=== PATIENT | male | born 1965 | race Caucasian/White ===

== ENCOUNTER → 2017-01-29 12:30 | Emergency (ER) | payer BC ==
[~2017-01-29 12:30] MED LIST: Acyclovir* 400 MG TAB PO ONE; Iohexol 300* (CONTRAST) 10 ML SDV IV ONE; Ketorolac INJ* 30 MG/ML 1 ML VIAL IV PUSH ONE; NS 0.9% 1000 ML* 1,000 ML IV ONE; Ondansetron INJ* 2 MG/ML VIAL IV ONE; ValACYclovir (*) 1 GM TAB PO ONE
--- NOTE | 2017-01-29 13:39 | ED ---
Abdominal Pain/Male - HPI Summary HPI Summary: Pt here w/ RT groin pain x 2 days - started as soreness but today progressively worse. When he went to look at the area, noticed he has swelling/bulging here. TTP. Also noticed a sore on Rt/top area of his penis when looking a Rt groin - painless and not sure how long it's been there. Rt groin pain is worse w/ sitting as this squeezes the area - better w/ lying down,standing up to allow area to extend. Nausea - no vomiting. 2 BM's this morning but smaller than usual - one was hard, one was soft - no change in sx. Denies hematochezia, dark/ tarry stools, diarrhea. Denies fever, chills but has had some mild URI past few days as well - ST, nasal congestion, mild cough. No SOB, chest pain, nightsweats , fatigue. H/o mono and this doesn't feel same. Urination is never complete and often frequent. Denies dysuria, flank pain, hematuria, testicular pain/swelling, perineal fullness, ab pain. Pt reports h/o BPH - advised to take flomax but he doesn't. Was seen by Braydon years ago. States he had a scope which confirmed enlarged prostate - no bx. Denies sexual activity. - History of Current Complaint Chief Complaint: EDUrogenitalProblems Stated Complaint: RT GROIN PAIN/SORE ON PENIS Time Seen by Provider: 01/29/17 13:14 Hx Obtained From: Patient, Family/Molecular Biology Director - female partner Pain Intensity: 2 - Allergies/Home Medications Allergies/Adverse Reactions: Allergies Allergy/AdvReac Type Severity Reaction Status Date / Time Lisinopril Allergy See Comment Verified 01/29/17 12:41 PMH/Surg Hx/FS Hx/Imm Hx Previously Healthy: Yes Endocrine/Hematology History: Denies: Hx Diabetes Cardiovascular History: Denies: Hx Hypertension, Hx Pacemaker/ICD Respiratory History: Reports: Hx Sleep Apnea - MILD GI History: Reports: Hx Gall Bladder Disease - cholecystectomy, Hx Gastroesophageal Reflux Disease - CONTROLLED WITH MEDICATION, Hx Hiatal Hernia Denies: Hx Cirrhosis, Hx Crohn's Disease, Hx Diverticulosis, Hx Gastrointestinal Bleed, Hx Irritable Bowel, Hx Obstructive Bowel, Hx Ulcer History: Reports: Hx Benign Prostatic Hyperplasia - rx'd flomax - doesn't use Denies: Hx Dialysis, Hx Kidney Infection, Hx Kidney Stones, Hx Renal Disease Sensory History: Reports: Hx Contacts or Glasses - WEARS CONTACTS-INSTRUCTED TO REMOVE PRIOR TO SURGERY Denies: Hx Hearing Aid Opthamlomology History: Reports: Hx Contacts or Glasses - WEARS CONTACTS- INSTRUCTED TO REMOVE PRIOR TO SURGERY Psychiatric History: Denies: Hx Panic Disorder - Surgical History Surgery Procedure, Year, and Place: GALLBLADDER 12/31/12; RIGHT KNEE SCOPE Hx Anesthesia Reactions: No Infectious Disease History: No Infectious Disease History: Denies: History Other Infectious Disease, Traveled Outside the [place] in Last 30 Days - Family History Known Family History: Positive: Other - father - lung [place] (smoker, director workers compensation ) - Social History Occupation: Retired Lives: With Family - female partner Alcohol Use: None Hx Substance Use: No Substance Use Type: Reports: None Hx Tobacco Use: No Smoking Status (MU): Never Smoked Tobacco Review of Systems Constitutional: Negative ENT: Other - see HPI Cardiovascular: Negative Respiratory: Negative Gastrointestinal: Other - see HPI Positive: see HPI Skin: Other - see HPI Neurological: Negative Psychological: Normal All Other Systems Reviewed And Are Negative: Yes Physical Exam Triage Information Reviewed: Yes Vital Signs On Initial Exam: Initial Vitals Temp Pulse Resp BP Pulse Ox 98.8 F 83 16 143/92 97 01/29/17 12:41 01/29/17 12:41 01/29/17 12:41 01/29/17 12:41 01/29/17 12:41 Vital Signs Reviewed: Yes Appearance: Positive: Well-Appearing, No Pain Distress - at sitting/stanind - appears to be uncomfortable w/ flexion at hips, Obese Skin: Positive: Warm, Dry - 2mm wet annual sore on Rt dorsal penis - serous drainage w/ crusting - NTTP, no edema but there is surrounding erythema Head/Face: Positive: Normal Head/Face Inspection Eyes: Positive: Normal, EOMI ENT: Positive: Normal ENT inspection, Hearing grossly normal, Pharynx normal, TMs normal. Negative: Nasal congestion, Nasal drainage, Tonsillar swelling, Tonsillar exudate Neck: Positive: Supple, Nontender, No Lymphadenopathy - cervical; no discrete palpable LN's in groin Respiratory/Lung Sounds: Positive: Clear to Auscultation, Breath Sounds Present. Negative: Rales, Rhonchi, Wheezes Cardiovascular: Positive: Normal, RRR, S1, S2 Abdomen Description: Positive: No Organomegaly, Soft, Hernia @ - Rt inguinal region w/ firm swelling - TTP - no reducing (diff dx: matted LN's). Negative: CVA Tenderness (R), CVA Tenderness (L), Distended, Guarding Bowel Sounds: Positive: Hypoactive Male Genital Exam: Positive: other - sore as mentioned above. Negative: bleeding, epididymal tenderness, scrotum tenderness (R), scrotum tenderness (L) , testicular tenderness (R), testicular tenderness (L), urethral discharge Musculoskeletal: Positive: Normal, Strength/ROM Intact Neurological: Positive: Normal, Sensory/Motor Intact, Alert, Oriented to Person Place, Time, CN Intact II-III Psychiatric: Positive: Normal Diagnostics - Vital Signs Vital Signs Temp Pulse Resp BP Pulse Ox 01/29/17 12:41 98.8 F 83 16 143/92 97 - Laboratory Result Diagrams: 01/29/17 13:44 01/29/17 13:44 Lab Statement: Any lab studies that have been ordered have been reviewed, and results considered in the medical decision making process. Abdominal Pain Fem Course/Dx - Course Course Of Treatment: Pt presents w/ Rt inguinal region swelling and pain w/ associated nausea and decreased BM's today. Also reports painless penile lesion he noticed yesterday. Denies fever, chills, dysuria, testicular pain/swelling, rectal pain. H/o BPH and has not been taking flomax (urinary sx same). Reports no sexual activity in 15 years and no h/o STD's. Assessment was started for hernia vs. lymphadenopathy, possibly from syphills as penile lesion is painless and appears to be ulcerated and wet. CT reveals enlarged LN here and mild infiltration of tissue in Rt inguinal region - no hernia. After further discussion w/ pt, he reveals his Rt inguinal region feels like it's burning, "even the hair is sensitive" and so penile lesion was investigated again -it is now tender w/ cleaning and vesicles are observed. Discussed w/ pt this could be HZV w/ his h/o chix pox or HSV. Swab collected and anti-viral therapy started as well as pain meds. Pt to watch for worsening of sx and return to ED if danger s/sx present. If not, follow-up with PCP early next week. Pt and agree w/ plan. - Diagnoses Provider Diagnoses: Herpes genitalia, Shingles rash Discharge - Discharge Plan Condition: Stable Disposition: HOME Prescriptions: Gabapentin CAP(*) [Neurontin 300 CAP(*)] 300 mg PO TID PRN #42 cap PRN Reason: Pain ValACYclovir (*) [Valtrex 1 GM(*)] 1 gm PO TID #20 tab Referrals: Tova Cuellar MD [Primary Care Provider] - Additional Instructions: You appear to have a herpetic lesion on your penis. This may be from Shingles ( aka. Herpes Zoster Virus) or Herpes Simplex (aka genital herpes). A swab was collected today to verify your diagnosis - call PCP Tuesday to schedule a follow- up for results. In the meantime, complete the [id number] medication provided for your today. You may also take ibuprofen and gabapentin for pain. *If you develop fever, chills, vomiting, weakness, intractable pain, return to ED
[2017-01-29 13:51] LABS: Hematocrit 40 % (42-52); Hemoglobin 13.9 g/dl (14.0-18.0); Mean Corpuscular HGB Conc 34 g/dl (31-36); Mean Corpuscular Hemoglobin 30 pg (27-31); Mean Corpuscular Volume 87 fL (80-94); Mean Platelet Volume 8 um3 (7.4-10.4); Red Blood Count 4.65 10^6/ul (4.0-5.4); Red Cell Distribution Width 13 % (10.5-15); White Blood Count 6.3 10^3/ul (3.5-10.8)
[2017-01-29 14:06] LABS: Albumin 4.4 g/dL (3.2-5.2); BUN/Creatinine Ratio 13.1 (8-20); C Reactive Protein 11.58 mg/L (< 5.00); Calcium 9.3 mg/dL (8.6-10.3); EGFR African American 123.4 (>60); Globulin 2.9 g/dL (2-4); Potassium 3.9 mmol/L (3.5-5.0); Total Bilirubin 0.5 mg/dL (0.2-1.0); Total Protein 7.3 g/dL (6.4-8.9)
[2017-01-29 14:53] LABS: Urine Bilirubin Negative (Negative); Urine Glucose Negative (Negative); Urine Nitrite Negative (Negative)
--- NOTE | 2017-01-29 16:18 | RAD ---
CLINICAL HISTORY: Right inguinal pain and swelling COMPARISON: CT abdomen pelvis dated October 24, 2008 TECHNIQUE: Contrast enhanced CT examination of the abdomen and pelvis from the lung bases through the initial tuberosities. The patient received 150 mL Omnipaque 300 intravenously prior to imaging.The patient received oral contrast as well prior to imaging. FINDINGS: VISUALIZED LUNG BASES: The visualized lung bases are grossly clear. There is no pleural effusion. ABDOMEN AND PELVIS: The liver is homogenously hypodense relative to the spleen. The liver measures 21.8 cm in greatest cephalocaudal dimension slightly increased from 20 cm on the previous CT exam. The spleen, pancreas and adrenal glands are grossly normal in appearance. The gallbladder is surgically absent. The kidneys are normal in appearance without focal mass, calcification or signs of hydronephrosis. There are contrast has progressed as far as the rectum. The small and large bowel are not distended. The patient's normal appendix is identified in the right lower quadrant with contrast and gas in the lumen (axial image 57). There is questionable wall thickening and haustral thickening throughout the length of the transverse colon and again at the rectosigmoid colon. There is no gross retroperitoneal or mesenteric lymphadenopathy. The pelvic viscera is normal in appearance. The abdominal aorta and iliac arteries are normal in course and diameter. The subcutaneous fat overlying the right inguinal region and extending laterally exhibits mild infiltration. There is mild lymphadenopathy in the right inguinal region with a lymph node measuring just under 1.1 cm in short axis diameter. There is no drainable fluid collection or any visible etiology for this appearance. There are small bilateral fat-containing inguinal hernias slightly larger on the left than the right Degenerative changes include multilevel loss of intervertebral disc height involving the lower thoracic and lumbar spine.There are no sinister bone lesions. IMPRESSION: 1. Overlying the right groin there is mild subcutaneous fat infiltration extending laterally. There is no drainable fluid collection. Lymph nodes in the vicinity are top normal. 2. Although there are small fat-containing inguinal hernias that do not appear to be in direct communication to the groin induration nor is there any herniation of bowel. 3. Questionable wall thickening and haustral thickening involving the transverse colon and again later at the rectosigmoid colon. Please correlate to symptoms of colitis. This may simply be a consequence of incomplete distention. 4. Mild hepatomegaly with a homogenously hypoattenuating liver which could be seen in the setting of hepatic steatosis or other chronic infiltrative disease of the liver.
[2017-01-29 18:26] VITALS: BP 135/82
[2017-01-31 10:52] LABS: Syphilis Index < 0.1 Index
[2017-02-02 00:39] LABS: HS/VZ Source PENILE SHAFT; Varicella Zoster Result Negative (Negative); Varicella Zoster Source PENILE SHAFT
== END | disposition home or self-care (01) ==
LOC: ED 12:30
DX: A60.00 Herpesviral infection of urogenital system, unspecified (principal); B02.9 Zoster without complications; K21.9 Gastro-esophageal reflux disease without esophagitis; G47.30 Sleep apnea, unspecified
CPT/HCPCS: 36415; 74177; 80053; 81003; 82150; 83605; 83690; 85025; 86140; 86592; 87252; 87529; 87798; 96360; 96374; 96375; 99281; A9270-GY; J1885; J2405; Q9967

== ENCOUNTER 2017-04-23 10:21 | Emergency (ER) | payer BC ==
--- NOTE | 2017-04-23 10:22 | UC ---
Knee Pain HPI - HPI Summary HPI Summary: Trauma to LT lateral knee 5 days ago - History of Current Complaint Chief Complaint: UCLowerExtremity Stated Complaint: KNEE PAIN Time Seen by Provider: 04/23/17 10:21 Hx Obtained From: Patient Onset/Duration: Sudden Onset - 5 days ago Severity Initially: Moderate Severity Currently: Mild Location Of Injury: Left lateral knee Pain Intensity: 4 Pain Scale Used: 0-10 Numeric Character: Dull, Throbbing, Stiffness Aggravating Factor(s): Movement Alleviating Factor(s): Rest, Position Associated Signs And Symptoms: Positive: Swelling, Bruising Able to Bear Weight: Yes - with pain - Risk Factors Septic Arthritis Risk Factor: Negative - Allergies/Home Medications Allergies/Adverse Reactions: Allergies Allergy/AdvReac Type Severity Reaction Status Date / Time Lisinopril AdvReac See Comment Verified 04/23/17 10:32 Home Medications: Home Medications Glaucoma Eye Drops 04/23/17 [History] metFORMIN* [Glucophage 500 MG TAB *] 500 mg PO BID 04/23/17 [History Confirmed 04/23/17] PMH/Surg Hx/FS Hx/Imm Hx Previously Healthy: Yes Endocrine History: Diabetes Cardiovascular History: Other - Hyperlipidemia Other Cardiovascular History: Hyperlipidemia - Surgical History Surgical History: Yes Surgery Procedure, Year, and Place: GALLBLADDER 12/31/12; RIGHT KNEE SCOPE - Family History Known Family History: Positive: Other - father - lung [place] (smoker, section gang worker ) - Social History Lives: With Family Alcohol Use: None Substance Use Type: None Smoking Status (MU): Never Smoked Tobacco Review of Systems Constitutional: Negative Skin: Bruising - Left lateral knee Respiratory: Negative Cardiovascular: Negative Motor: Negative Musculoskeletal: Decreased ROM - Left lateral knee, Edema - Left lateral knee Neurological: Negative Psychological: Negative All Other Systems Reviewed And Are Negative: Yes Physical Exam Triage Information Reviewed: Yes Appearance: Well-Appearing, Well-Nourished Vital Signs Reviewed: Yes Respiratory Exam: Normal Respiratory: Positive: Chest non-tender, Lungs clear, Normal breath sounds Cardiovascular Exam: Normal Cardiovascular: Positive: RRR, No Murmur Musculoskeletal Exam: Other Musculoskeletal: Positive: ROM Limited @ - Left knee. Flexion to 80 deg causes pain, Edema @ - Left lateral knee approx 3-4cm swollen hematoma. Neurological Exam: Normal Neurological: Positive: Alert Psychological Exam: Normal Psychological: Positive: Age Appropriate Behavior Knee Pain Course/Dx - Course Course Of Treatment: Traumatic injury to left lateral knee. Pt is ambulating with mild pain and states that the pain and swelling have decreased significantly since his injury. Has been RICE and taking ibuprofen. Utilizing Wells' criteria and correlating with hx, he is at low risk for DVT. X ray was reviewed and shows small joint effusion and lateral hematoma. Pt does not require or request anything for pain control. Was advised to continue with RICE therapy and ambulate as tolerated. - Differential Dx/Diagnosis Differential Diagnosis/HQI/PQRI: Other - Hematoma left lateral knee - traumatic Provider Diagnoses: Hematoma left lateral knee - traumatic Discharge - Discharge Plan Condition: Stable Disposition: HOME Patient Education Materials: Hematoma (ED) Referrals: Tova Cuellar MD [Primary Care Provider] - Additional Instructions: If swelling, redness, or bruising increase or you develop SOB, chest pain, or fever; go to the ED or call our office.
[2017-04-23 10:37] VITALS: BP 138/89
--- NOTE | 2017-04-23 11:16 | RAD ---
INDICATION: Hematoma overlying the left lateral knee after a piece of a coronary event fell on the knee. COMPARISON: None TECHNIQUE: 2 view radiograph of the left knee. FINDINGS: Depicted on the AP view of the knee, there is a hyperdense focus between the musculotendinous structures and subcutaneous fat measuring 1.6 x 3.3 cm. On the lateral view of the knee there is a small joint effusion. The bones are otherwise intact and appropriately aligned. IMPRESSION: 1. Corresponding to the history provided, there is a subcutaneous fluid collection overlying the lateral collateral ligaments which could represent a subcutaneous hematoma or bursitis. 2. Small left knee joint effusion without focal bony abnormality.
== END 2017-04-23 11:55 | disposition home or self-care (01) ==
LOC: UCEAST 10:21
DX: S80.02XA Contusion of left knee, initial encounter (principal); E11.9 Type 2 diabetes mellitus without complications; E78.5 Hyperlipidemia, unspecified; X58.XXXA Exposure to other specified factors, initial encounter; Y92.9 Unspecified place or not applicable
CPT/HCPCS: 99211; G0463

== ENCOUNTER 2018-03-09 09:29 | Emergency (ER) | payer BC ==
[2018-03-09 09:48] VITALS: BP 115/78
--- NOTE | 2018-03-09 09:52 | UC ---
Eye Complaint HPI - HPI Summary HPI Summary: 53 yo male presents with right eye redness and drainage for the last 2 days. He tells me that he has bad seasonal allergies, but has been using OTC eye drops with no relief. He was mowing his lawn 3-4 days ago, but he was wearing protector glasses - does not think anything went into his eye. He does not wear glasses or contacts. Denies fever, chills, sinus symptoms, or pain in the eye. - History of Current Complaint Chief Complaint: UCEye Stated Complaint: R EYE COMPLAINT Time Seen by Provider: 03/09/18 09:51 Hx Obtained From: Patient Onset/Duration: Gradual Onset Timing: Constant Severity Initially: Mild Severity Currently: Mild Pain Intensity: 2 Pain Scale Used: 0-10 Numeric - Allergies/Home Medications Allergies/Adverse Reactions: Allergies Allergy/AdvReac Type Severity Reaction Status Date / Time lisinopril Allergy Rash Verified 03/09/18 09:49 PMH/Surg Hx/FS Hx/Imm Hx Endocrine History: Diabetes, Dyslipidemia Cardiovascular History: Hypertension - Surgical History Surgical History: Yes Surgery Procedure, Year, and Place: GALLBLADDER 12/31/12; RIGHT KNEE SCOPE sinus - Family History Known Family History: Positive: Diabetes, Other - father - lung [place] (smoker, paint factory worker) - Social History Occupation: Employed Full-time Lives: With Family Alcohol Use: None Substance Use Type: None Smoking Status (MU): Never Smoked Tobacco Review of Systems Constitutional: Negative Skin: Negative Eyes: Drainage, Eye Redness ENT: Negative Respiratory: Negative Cardiovascular: Negative Neurovascular: Negative Neurological: Negative Psychological: Negative All Other Systems Reviewed And Are Negative: Yes Physical Exam - Summary Physical Exam Summary: GENERAL: WDWN. No pain distress. SKIN: No rashes, sores, lesions, or open wounds. HEENT: Head: AT/NC Eyes: EOM intact. PERRLA. RIGHT EYE: Moderate scleral injection. Conjunctiva with mild erythema and inflammation. Mild yellow discharge. LEFT EYE : Conjunctiva clear without inflammation or discharge. No FBs appreciated Nose: NTTP maxillary and frontal sinus. NECK: Supple. Nontender. No lymphadenopathy. CHEST: No accessory muscle use. Breathing comfortably and in no distress. CV: Pulses intact. Cap refill <2seconds NEURO: Alert. CN II-XII grossly intact. PSYCH: Age appropriate behavior. Triage Information Reviewed: Yes Vital Signs: Initial Vital Signs Temp 98 F 03/09/18 09:46 Pulse 63 03/09/18 09:46 Resp 16 03/09/18 09:46 BP 115/78 03/09/18 09:46 Pulse Ox 99 03/09/18 09:46 Vital Signs Reviewed: Yes Eye Complaint Course/Dx - Course Course Of Treatment: Right eye conjunctivitis - Differential Dx/Diagnosis Provider Diagnoses: Right eye conjunctivitis Discharge - Sign-Out/Discharge Documenting (check all that apply): Patient Departure All imaging exams completed and their final reports reviewed: Yes - Discharge Plan Condition: Stable Disposition: HOME Prescriptions: Ofloxacin 0.3%(Ophth)(Nf) [Ocuflox OPTH 0.3%(NF)] 1 drop BOTH EYES QID #1 btl Patient Education Materials: Conjunctivitis (ED) Referrals: Tova Cuellar MD [Primary Care Provider] - Additional Instructions: If you develop a fever, shortness of breath, chest pain, new or worsening symptoms - please call your PCP or go to the ED. - Billing Disposition and Condition Condition: STABLE Disposition: Home
== END 2018-03-09 10:05 | disposition home or self-care (01) ==
LOC: UCEAST 09:29
DX: H10.31 Unspecified acute conjunctivitis, right eye (principal); Z88.8 Allergy status to other drugs, medicaments and biological substances
CPT/HCPCS: 99212; G0463

== ENCOUNTER 2018-05-11 10:27 | Observation (INO) | payer BC ==
--- NOTE | 2018-05-11 10:58 | ED ---
HPI Chest Pain - HPI Summary HPI Summary: This patient is a 53 year old M presenting to [facility] accompanied by his family with a chief complaint of intermittent chest pressure that began this morning. The patient rates the pain 2/10 in severity and describes it as mid sternal. Patient reports headache, lightheadedness, dizziness, and diarrhea. He also c/o feeling like he cant take a full breath. Patient denies n/v. No hx of IA but has DM, HLD, and HTN. Pt states he was 150/90 [employer]. He has not taken ASA or NTG. He has not had a stress test since 2011. Pt was on propanol and it was cut back and it was recently discontinued States he has had trouble sleeping due to palpitations since this medication change Not on blood thinners and takes 81 mg ASA daily. - History of Current Complaint Chief Complaint: EDChestPainROMI Time Seen by Provider: 05/11/18 10:42 Hx Obtained From: Patient Onset/Duration: Started Days Ago, Still Present Timing: Intermittent Initial Severity: Mild Current Severity: Mild Pain Intensity: 2 Pain Scale Used: 0-10 Numeric Chest Pain Location: Mid Sternal Chest Pain Radiates: No Character: Pressure/Squeezing Associated Signs and Symptoms: Positive: Other: - headache, lightheadedness, dizziness, and diarrhea - Allergy/Home Medications Allergies/Adverse Reactions: Allergies Allergy/AdvReac Type Severity Reaction Status Date / Time lisinopril Allergy Rash Verified 03/09/18 09:49 Home Medications: Home Medications Aspirin EC TAB* [Ecotrin EC Low Dose 81 MG*] 81 mg PO DAILY 05/11/18 [History Confirmed 05/11/18] Ciclopirox Olamine [Ciclodan] 0.77 % TOPICAL BID 05/11/18 [History Confirmed 02/18] Gabapentin CAP(*) [Neurontin 100 mg CAP(*)] 100 - 200 mg PO TID 05/11/18 [ History Confirmed 05/11/18] Latanoprost 0.005%* [Xalatan 0.005%*] 1 drop OPHTHALMIC DAILY 05/11/18 [History Confirmed 05/11/18] Losartan TAB* [Cozaar TAB*] 50 mg PO DAILY 05/11/18 [History Confirmed 05/11/18] Multivitamins/Minerals TAB* [Theragran/minerals TAB*] 1 tab PO DAILY 05/11/18 [ History Confirmed 05/11/18] Rosuvastatin (NF) [Crestor (NF)] 10 mg PO DAILY 05/11/18 [History Confirmed 02/18] Zolpidem TAB* [Ambien TAB*] 5 - 10 mg PO BEDTIME PRN MDD 10 mg 05/11/18 [ History Confirmed 05/11/18] metFORMIN* [Glucophage 500 MG TAB *] 1,000 mg PO DAILY 05/11/18 [History Confirmed 05/11/18] PMH/Surg Hx/FS Hx/Imm Hx Endocrine/Hematology History: Reports: Hx Diabetes - diet controlled Cardiovascular History: Denies: Hx Hypertension, Hx Pacemaker/ICD Respiratory History: Reports: Hx Sleep Apnea - MILD GI History: Reports: Hx Gall Bladder Disease - cholecystectomy, Hx Gastroesophageal Reflux Disease - CONTROLLED WITH MEDICATION, Hx Hiatal Hernia Denies: Hx Cirrhosis, Hx Crohn's Disease, Hx Diverticulosis, Hx Gastrointestinal Bleed, Hx Irritable Bowel, Hx Obstructive Bowel, Hx Ulcer History: Reports: Hx Benign Prostatic Hyperplasia - rx'd flomax - doesn't use Denies: Hx Dialysis, Hx Kidney Infection, Hx Kidney Stones, Hx Renal Disease Sensory History: Reports: Hx Contacts or Glasses - WEARS CONTACTS-INSTRUCTED TO REMOVE PRIOR TO SURGERY Denies: Hx Hearing Aid Opthamlomology History: Reports: Hx Contacts or Glasses - WEARS CONTACTS- INSTRUCTED TO REMOVE PRIOR TO SURGERY Psychiatric History: Denies: Hx Panic Disorder - Surgical History Surgery Procedure, Year, and Place: GALLBLADDER 12/31/12; RIGHT KNEE SCOPE sinus Hx Anesthesia Reactions: No Infectious Disease History: No Infectious Disease History: Denies: History Other Infectious Disease, Traveled Outside the [place] in Last 30 Days - Family History Known Family History: Positive: Diabetes, Other - father - lung CA (smoker, nozzle worker) - Social History Alcohol Use: None Hx Substance Use: No Substance Use Type: Reports: None Hx Tobacco Use: No Smoking Status (MU): Never Smoked Tobacco Review of Systems Positive: Palpitations - see HPI , Chest Pain Positive: Other - feeling like he can take a full breath Positive: Diarrhea. Negative: Vomiting, Nausea Neurological: Other - lightheadedness, dizziness Positive: Headache All Other Systems Reviewed And Are Negative: Yes Physical Exam - Summary Physical Exam Summary: GENERAL: Patient is a well-developed and nourished M who is lying comfortable in the stretcher. Patient is not in any acute respiratory distress. HEAD AND FACE: Normocephalic EYES: PERRLA, EOMI x 2. EARS: Hearing grossly intact. MOUTH: Oropharynx within normal limits. NECK: Supple, trachea is midline, no adenopathy, no JVD, no carotid bruit. CHEST: Symmetric, no tenderness at palpation LUNGS: Clear to auscultation bilaterally. No wheezing or crackles. CVS: Regular rate and rhythm, S1 and S2 present, no murmurs or gallops appreciated. ABDOMEN: Soft, non-tender. Bowel sounds are normal. No abdominal abnormal pulsations. EXTREMITIES: Full ROM in all major joints, no edema, no cyanosis or clubbing. NEURO: Alert and oriented x 3. No acute neurological deficits. Speech is normal and follows commands. SKIN: Dry and warm Triage Information Reviewed: Yes Vital Signs On Initial Exam: Initial Vitals Temp Pulse Resp BP Pulse Ox 98.3 F 99 18 159/86 98 05/11/18 10:30 05/11/18 10:30 05/11/18 10:30 05/11/18 10:30 05/11/18 10:30 Vital Signs Reviewed: Yes Diagnostics - Vital Signs Vital Signs Temp Pulse Resp BP Pulse Ox 05/11/18 10:30 98.3 F 99 18 159/86 98 - Laboratory Result Diagrams: 05/11/18 10:47 05/11/18 10:47 Lab Statement: Any lab studies that have been ordered have been reviewed, and results considered in the medical decision making process. - Radiology CXR Radiology Interpretation Completed By: Radiologist Summary of Radiographic Findings: NO EVIDENCE FOR ACUTE DISEASE. ED physician has reviewed this radiology report. - EKG 1038 Cardiac Rate: NL EKG Rhythm: Sinus Rhythm - at 53 bpm Summary of EKG Findings: no ischemic changes, Chest Pain Course/Dx - Course Assessment/Plan: This patient is a 53 year old M presenting to [facility] with a chief complaint of intermittent chest pressure that began this morning. An EKG reveals NSR at 53 BPM, no ischemic changes, 1038. CXR reveals, per radiologist , NO EVIDENCE FOR ACUTE DISEASE. Work up was remarkable for of lactic acid of 2.2. First troponin was negative. D dimer was WNL. Given his high risk for ACS he will be admitted fpr r/o. We discussed patient care with Dr. Ribeiro and she has agreed to admit the patient. Patient will be admitted. The patient is agreeable with this plan. - Diagnoses Provider Diagnoses: Chest pain - Provider Notifications Discussed Care Of Patient With: Judy Ribeiro Time Discussed With Above Provider: 12:17 Instructed by Provider To: Admit As Inpatient Discharge - Sign-Out/Discharge Documenting (check all that apply): Patient Departure - admitted - Discharge Plan Condition: Fair Disposition: ADMITTED TO [facility] - Billing Disposition and Condition Condition: FAIR Disposition: Admitted to [facility] - Attestation Statements Document Initiated by Yasriibe: Yes Documenting Scribe: Wilberto Garces Provider For Whom Josselyn is Documenting (Include Credential): Zak Reyes MD Scribe Attestation: Wilberto An scribed for Zak Reyes MD on 05/11/18 at 1809. Scribe Documentation Reviewed: Yes Provider Attestation: The documentation as recorded by the Wilberto perea accurately reflects the service I personally performed and the decisions made by Zak pierre MD
[2018-05-11 11:01] LABS: ABS Basophils 0 10^3/ul (0-0.2); ABS Eosinophils 0.2 10^3/ul (0-0.6); ABS Monocytes 0.5 10^3/ul (0-0.8); ABS Neutrophils 2.8 10^3/ul (1.5-7.7); ABS Nucleated RBC 0 10^3/ul; Eosinophil % 4.2 % (0-6); Hematocrit 39 % (42-52); Hemoglobin 13.6 g/dl (14.0-18.0); Lymphocyte % 21.9 % (25-47); Mean Corpuscular HGB Conc 35 g/dl (31-36); Mean Corpuscular Hemoglobin 29 pg (27-31); Mean Corpuscular Volume 85 fL (80-94); Mean Platelet Volume 7.6 fL (7.4-10.4); Nucleated Red Blood Cells % 0.2; Platelet Count 200 10^3/ul (150-450); Red Blood Count 4.63 10^6/ul (4.00-5.40); Red Cell Distribution Width 13 % (10.5-15); White Blood Count 4.4 10^3/ul (3.5-10.8)
[2018-05-11 11:17] LABS: EGFR Non-African American 90.6 (>60)
--- OUTSIDE RECORDS SUMMARY | 2018-05-11 11:18 | XMS REPORT ---
:1965 External Reference #:[id number] Author Organization [facility] Address [address] [place] [address] [place] [address] Phone [phone] Care Team Providers Name Role Phone Tova Cuellar MD Primary Care Physician Unavailable Payers Type Date Identification Numbers Payment Provider Subscriber Commercial Effective: Policy Number: MITCHEL Alvarez 2012 [id number] PayID: [id number] [address] [address] [place] [address] Medigap Part B Effective: Policy Number: Bao Alvarez 2009 [id number] Ppo Expires: 2012 Group Name: Sourav Chauhan [id number] PayID: [id number] [place] [id number] Problems Date Description Provider Status Onset: 06/21/2017 Type 2 diabetes mellitus Tova Cuellar M.D. Active Onset: 05/13/2010 Hyperlipidemia Tova Cuellar M.D. Active Onset: 05/13/2010 Benign essential hypertension Tova Cuellar M.D. Active Onset: 05/30/2013 Essential tremor Tova Cuellar M.D. Active Onset: 04/03/2015 Sprain, tarsometatarsal joint Chaim Urias M.D. Active Onset: 09/29/2016 Cervico-occipital neuralgia Manuel Vega M.D. Active Onset: 05/30/2013 Disorder of eye movements Tova Cuellar M.D. Inactive Inactive: 04/19/2015 Onset: 04/18/2015 Impaired glucose tolerance Tova Cuellar M.D. Inactive Inactive: 02/15/2017 Family History Date Family Member(s) Problem(s) Comments General Cancer : (age 68 Father due to Cancer, Lung brain aneurysm Years) Mother Hypertension Siblings None Social History Type Date Description Comments Marital Status Significant Other Lives With Girlfriend Juli Alvarez Occupation [employer] Occupation 2014 Disabled Work Status Not Currently Working Cigarette Use Never Smoked Cigarettes ETOH Use Denies alcohol use Smoking Patient has never smoked Recreational Drug Use Denies Drug Use Smoking Patient is not exposed to second hand smoke. Allergies, Adverse Reactions, Alerts Date Description Reaction Status Severity Comments 07/18/2012 Lisinopril sweating active Moderate 04/28/2010 NKDA inactive Medications Medication Date Status Form Strength Qnty SIG Indications Ordering Provider Losartan 05/09 Active Tablets 50mg 30tab 1 by I10 s mouth Cotton, every day M.D. Gabapentin 05/09 Active Capsules 100mg 120ca 1-2 G25.0 ps capsules Cotton, tid M.D. Ciclopirox 09/29 Active Cream 0.77% 90gm apply a R21 thin film Cotton, twice a M.D. day Docusate Sodium 06/23 Active Tablets 100mg 1 PO once K59.00 or twice Cotton, daily M.D. Metformin HCL ER 06/23 Active Tablets ER 500mg 60tab 2 by 24HR s mouth Cotton, every day M.D. Zolpidem Tartrate 02/07 Active Tablets 10mg 30tab take 07/05 s to 1 Cotton, tablet at M.D. bedtime as needed maximum daily dose=1 Cane 05/17 Active Misc 1unit For daily s use Cotton, M.D. Singulair 06/25 Active Tablets 10mg 30tab Take One s Tablet By Cotton, Mouth M.D. Once Daily Aspirin 03/05 Active Tablets 81mg 1 by mouth Cotton, once M.D. daily Crestor 10/25 Active Tablets 10mg 30tab Take One s Tablet By Cotton, Mouth M.D. Once Daily Multi Vitamin Active Tablets 1 po qd Unknown / Latanoprost Active Solution 0.005% Inderal LA 04/18 Hx Caps ER 60mg 30cap 1 by G25.0 Tova /2018 24HR s mouth Cotton, - every day M.D. 05/09 Inderal LA 03/08 Hx Caps ER 120mg 30cap 1 PO qd G25.0 24HR s Cotton, - M.D. 04/18 Propranolol HCL 03/03 Hx Caps ER 80mg 30cap 1 by G25.0 Tova ER 24HR s mouth Cotton, - every day M.D. 03/08 Propranolol HCL 02/03 Hx Caps ER 60mg 30cap 1 by G25.0 Tova ER 24HR s mouth Cotton, - every day M.D. 03/03 Cozaar 12/04 Hx Tablets 25mg 30tab Take One G25.0 s Tablet By Cotton, - Mouth M.D. 05/09 Daily as Directed Losartan 06/23 Hx Tablets 25mg 30tab 1 by I10 Tova s mouth Cotton, - every day M.D. 12/04 Metformin HCL 02/15 Hx Tablets 500mg 60tab 1 by s mouth Cotton, - twice a M.D. Fluticasone 02/08 Hx Suspension 50mcg/Act 16uni 2 sprays J02.9 Michelle Propionate ts each Varn, N.P. - nostril 06/23 daily needed Tramadol HCL 01/31 Hx Tablets 50mg 60tab 1-2 N48.5 s tablets Cotton, - every 6 M.D. 06/23 hours needed Omeprazole 01/[address] 40mg 30cap ( Not R12 s Taking)1 Cotton, - by mouth M.D. 06/23 Tamsulosin HCL 10/25 Hx Capsules 0.4mg 30cap 1 by N40.1 s mouth Cotton, - every day M.D. 01/25 Amoxicillin/Clavu 08/27 Hx Tablets 875-125mg 20tab 1 tablet J06.9 Tova lanate Potassium s twice Cotton, - daily for M.D. 10/25 10 Abilify 08/18 Hx Tablets 10mg F41.9 Cotton, - M.D. 08/18 Aripiprazole 08/18 Hx Tablets 10mg 30tab Take 07/05 F41.9 s Tablet By Cotton, - Mouth AT M.D. 01/25 Bedtime Ranitidine HCL 07/06 Hx Tablets 150mg 30tab take one OT s tablet by Cotton, - mouth M.D. 01/25 once a day Abilify 07/06 Hx Tablets 5mg 60tab 2 by F41.9 s mouth at Cotton, - bedtime M.D. 08/18 Ketoconazole 07/06 Hx Cream 2% 60uni Apply A B35.3 ts Thin Cotton, - Layer Two M.D. 01/25 Times A Day Abilify 06/01 Hx Tablets 2mg 30tab one by F41.9 s mouth at Cotton, - bedtime M.D. 07/06 Polyethylene 04/27 Hx Powder 3350NF 527gm one 17 gm Tova Glycol 335 scoop in Cotton, - 8 oz M.D. 01/25 daily Cephalexin 10/29 Hx Tablets 500mg 21tab 1 by L03.012 s mouth Cotton, - three M.D. 06/01 times day x 7 days Amoxicillin/Clavu 09/23 Hx Tablets 875-125mg 20tab one J01.00 Michelle lanate Potassium s tablet by Varn, N.P. - mouth 10/03 twice daily for 10 days Fluticasone 09/23 Hx Suspension 50mcg/Act 16uni 2 sprays J01.00 Michelle Propionate ts each Varn, N.P. - nostril 10/07 daily needed Tobrex 09/23 Hx Solution 0.3% 5ml 1 drop H10.9 every 4 Varn, N.P. - hours for 09/30 7 days Venlafaxine HCL 07/11 Hx Tablets ER 225mg 30tab Take One F41.9 24HR s Tablet By Cotton, - Mouth M.D. 01/25 Once Daily Venlafaxine HCL 06/02 Hx Caps ER 150mg 30cap 1 by F41.9 24HR s mouth Cotton, - every day M.D. 07/11 at bedtime Venlafaxine HCL 04/18 Hx Caps ER 37.5mg 60cap 1 by F41.9 24HR s mouth Cotton, - every day M.D. 06/02 x 2 weeks then increase to 2 daily Venlafaxine HCL 12/16 Hx Caps ER 75mg 90cap 2 po qd x 24HR s 1 month, Polo, - then 1 po M.D. 01/15 qd x month Venlafaxine HCL 12/16 Hx Caps ER 37.5mg 30cap 1 po qd x 24HR s 1 month Polo, - (to be M.D. 04/18 filled after finishing 75 mg taper prescript ion) Propranolol HCL 12/16 Hx Tablets 20mg 60tab Take One G25.0 s Tablet By Polo, - Mouth M.D. 02/03 Twice A Day Amoxicillin 08/13 Hx Suspension 250mg/5ML 300ml 10 461.9 Rec millilite Polo, - rs by M.DDwayne 10/08 three times a day x 10 days Propranolol HCL 11/08 Hx Tablets 10mg 120ta 2 by 333.1 Stefanie Dwayne bs mouth Earnestman, - twice a M.D. Levofloxacin 08/16 Hx Tablets 500mg 7tabs 1 po qd 465.9 for 7 Cotton, - days M.D. 08/31 Hydrochlorothiazi 07/23 Hx Capsules 12.5mg 30cap Take One s Capsule Polo, - By Mouth M.D. 08/16 Daily Not taking 08/14/13 Atenolol 05/28 Hx Tablets 25mg 1 po qd 333.1 Polo, - M.D. 07/12 Losartan 05/01 Hx Tablets 100mg 30tab Take One s Tablet By Polo, - Mouth M.D. 05/22 Once Daily Clonazepam 02/21 Hx Tablets 0.5mg 60tab 1 PO qam s Polo - M.D. 01/07 Escitalopram 02/15 Hx Tablets 5mg 60tab 2 pills 300.00 Tova Oxalate s daily Polo, - M.D. 03/02 Ambien 01/16 Hx Tablets 10mg 30tab 1 by s mouth Polo, - once M.D. 01/26 daily at bedtime as needed Atenolol 01/16 Hx Tablets 25mg 30tab 1 po qd 333.1 s Polo - M.D. 01/26 Ambien 12/29 Hx Tablets 5mg 20tab 1 po s tablet at Polo, - bedtime M.D. 01/16 pr Nexium 12/[address] 40mg 30cap 1 po qd 789.06 s Polo - M.DDwayne 02/15 Losartan 11/03 Hx Tablets 100mg 30tab 1 po qd 401.1 Tova Potassium s Polo - M.DDwayne 12/25 Hydrochlorothiazi 11/03 Hx Capsules 12.5mg 30cap Take One 782.3 s Capsule Polo, - By Mouth M.D. 07/12 Daily Hydrochlorothiazi 07/18 Hx Tablets 25mg 30tab 1 po qd 782.3 s Polo - M.D. 11/03 Hydrochlorothiazi 07/12 Hx Tablets 12.5mg 30tab 1 by s mouth Polo, - once M.D. 11/03 Losartan 07/05 Hx Tablets 50mg 30tab Take One 401.1 Tova Potassium s Tablet By Cotton, - Mouth M.D. 11/03 Once Daily Montelukast 03/07 Hx Tablets 10mg 30tab Take One Tova Sodium s Tablet By Cotton, - Mouth M.D. 06/25 Once Daily Xyzal 03/07 Hx Tablets 5mg 30tab Take One J30.9 Tova /2012 s Tablet By Cotton, - Mouth M.D. 05/09 Once Daily Lisinopril/Hydroc 12/26 Hx Tablets 10-12.5mg 30tab Take One 401.1 Tova hlorothiazide s Tablet By Cotton, - Mouth M.D. 07/05 Once Daily Lisinopril 10/25 Hx Tablets 5mg 60tab 2 po qd 401.1 Tova /2012 s Polo, - M.D. 12/26 Flexeril 09/28 Hx Tablets 5mg 90tab 2 hs and s 1 q am Delmar Miller - 07/18 Diclofenac Sodium 09/[address] 75mg 60tab 1 po bid s Delmar Miller - 10/06 Out Of Work 09/17 Hx From 09/17/10 Neris, - through M.D., FACP 09/2509/25/10 due to a medical condition Out Of Work 09/11 Hx Ambika will be Cotton, - out of M.D. 09/17 work from 09/11/10 through 09/18/10 due to a medical condition . Physical Therapy 09/08 Hx Polo, - M.D. 09/17 Physical Therapy 09/04 Hx PT for multiple Cotton, - lumbar M.D. 09/17 disc herniatio ns Flexeril 09/01 Hx Tablets 10mg 30tab 1 by s mouth Cotton, - every 8 M.D. 09/28 hours needed Vicodin 09/01 Hx Tablets 5-500mg 30tab 1-2 by s mouth Cotton, - every 4-6 M.D. 10/06 hours needed for pain Famotidine 08/21 Hx Tablets 40mg 30tab 1 tablet 530.81 Tova s once Cotton, - daily at M.D. 05 bedtime Pantoprazole 06/[address] 40mg 30tab Take 1 789.06 Tova Sodium s Tablet By Cotton, - Mouth M.D. 12/25 Daily Clarinex 01/12 Hx Tablets 5mg 30tab Take One 477.9 Tova /2010 s Tablet By Cotton, - Mouth M.D. 03/07 Daily Crestor 12/30 Hx Tablets 20mg 30tab Take One Tova /2010 s Tablet By Cotton, - Mouth M.D. 10/25 Daily Atenolol 12/30 Hx Tablets 50mg 30tab Take 1 Tova /2010 s Tablet By Cotton, - Mouth M.D. 12/25 Daily Omeprazole 12/[address] 20mg 60tab 2 tablets 530.81 Tova /2010 s once Cotton, - daily M.D. 06/12 Singulair 12/25 Hx Tablets 10mg 30tab Take One Tova /2010 s Tablet By Cotton, - Mouth M.D. 03/07 Daily Asa Hx 81mg 30uni 1 po qd Unknown /0000 ts - 03/05 Metoclopramide Hx Tablets 10mg 40tab 1 po qid Unknown HCL /0000 s prn/ - nausea 01/16 Antivert Hx Tablets 12.5mg prn/ Unknown /0000 dizziness - 01/16 Escitalopram Hx Tablets 10mg 30tab Take 1/2 300.00 Unknown Oxalate /0000 s Tablet By - Mouth 01/07 Daily Venlafaxine HCL 00 Hx Caps ER 75mg 21cap 1 by Unknown ER /0000 24HR s mouth - every day 10/09 Venlafaxine HCL 0000 Hx Tablets ER 150mg 30tab 1 by Unknown ER /0000 24HR s mouth - every day 02/01 Trazodone HCL 00 Hx Tablets 50mg 30tab 1/2-1 Unknown /0000 s tablet - once 12/06 daily at bedtime Venlafaxine HCL 00/00 Hx Tablets ER 75mg 90tab 1 by Unknown ER /0000 24HR s mouth - every day 02/01 with 150mg. Olanzapine 00/ Hx 1 by Unknown /0000 mouth - every day 02/01 Venlafaxine HCL 00/00 Hx Tablets ER 225mg 30tab take one Unknown ER /0000 24HR s tab by - mouth 12/14 each Abilify Hx Tablets 5mg 30tab 2 tabs by Unknown /0000 s mouth - every day 01/07 Valtrex Hx Tablets 1gm 1 by Unknown /0000 mouth - three 02/08 times day #20 Immunizations CPT Code Status Date Vaccine Reaction Lot # [id number] Given 04/18/2018 Influenza Virus Vaccine, [id number] Quadrivalent, Split, Preservative Free 97105 Given 06/23/2017 Pneumonia Vaccine [id number] 65560 Given 04/01/2017 Influenza Virus Vaccine, No immedidate [id number] Quadrivalent, Split, reaction..jh Preservative Free 16477 Given 04/27/2016 Influenza Virus Vaccine, no reaction noted ... [id number] Quadrivalent, Split Virus, [place] Use 25648 Given 10/30/2015 Tetanus And Diptheria (Td) [id number] For Adult Use Preservative Free 74950 Given 04/18/2015 Influenza Virus Vaccine, [id number] Quadrivalent, Split, Preservative Free 43955 Given 05/28/2013 Flu Vaccine Split Virus [id number] Preservative Free For Indiv 3Yr Older 81011 Given 02/15/2007 Tdap - Tetanus/Diptheria/Acellula r Pertussis Vital Signs Date Vital Result Comment 05/09/2018 Height 72 inches 6'0" Weight 244.00 lb Heart Rate 92 /min BP Systolic Sitting 134 mmHg BP Diastolic Sitting 81 mmHg O2 % BldC Oximetry 96 % BMI (Body Mass Index) 33.1 kg/m2 04/18/2018 Height 72 inches 6'0" Weight 242.00 lb Heart Rate 60 /min BP Systolic Sitting 124 mmHg BP Diastolic Sitting 74 mmHg Body Temperature 98.0 F O2 % BldC Oximetry 100 % BMI (Body Mass Index) 32.8 kg/m2 02/03/2018 Height 72 inches 6'0" Weight 231.00 lb Heart Rate 67 /min BP Systolic Sitting 118 mmHg BP Diastolic Sitting 81 mmHg O2 % BldC Oximetry 99 % BMI (Body Mass Index) 31.3 kg/m2 09/29/2017 Weight 245.75 lb Heart Rate 79 /min BP Systolic 118 mmHg BP Diastolic 72 mmHg Body Temperature 97.4 F O2 % BldC Oximetry 97 % 06/23/2017 Height 72 inches 6'0" Weight 244.00 lb Heart Rate 85 /min BP Systolic 122 mmHg BP Diastolic 82 mmHg BP Systolic Sitting 136 mmHg BP Diastolic Sitting 98 mmHg Body Temperature 98.2 F O2 % BldC Oximetry 97 % BMI (Body Mass Index) 33.1 kg/m2 04/26/2017 Height 72 inches 6'0" Weight 247.00 lb Heart Rate 81 /min BP Systolic 140 mmHg BP Diastolic 76 mmHg O2 % BldC Oximetry 97 % BMI (Body Mass Index) 33.5 kg/m2 04/01/2017 Height 72 inches 6'0" Weight 253.50 lb Heart Rate 68 /min BP Systolic 120 mmHg BP Diastolic 70 mmHg Pain Level 98 BMI (Body Mass Index) 34.4 kg/m2 02/15/2017 Weight 255.00 lb Heart Rate 79 /min BP Systolic Sitting 142 mmHg BP Diastolic Sitting 80 mmHg Body Temperature 97.6 F O2 % BldC Oximetry 98 % 02/08/2017 Weight 256.75 lb Heart Rate 83 /min BP Systolic 140 mmHg BP Diastolic 84 mmHg Body Temperature 99.1 F O2 % BldC Oximetry 96 % 01/31/2017 Weight 259.25 lb Heart Rate 88 /min BP Systolic 120 mmHg BP Diastolic 76 mmHg Body Temperature 98.6 F O2 % BldC Oximetry 98 % 01/25/2017 Weight 261.75 lb Heart Rate 74 /min BP Systolic 118 mmHg BP Diastolic 70 mmHg Body Temperature 97.6 F O2 % BldC Oximetry 97 % 10/25/2016 Weight 260.00 lb Heart Rate 91 /min BP Systolic Sitting 134 mmHg BP Diastolic Sitting 76 mmHg Body Temperature 97.3 F Pain Level 2 neck O2 % BldC Oximetry 96 % 09/29/2016 Height 72 inches 6'0" Weight 255.00 lb Heart Rate 72 /min BP Systolic Sitting 138 mmHg BP Diastolic Sitting 70 mmHg Pain Level 2 BMI (Body Mass Index) 34.6 kg/m2 08/27/2016 Weight 255.00 lb Heart Rate 88 /min BP Systolic 140 mmHg BP Diastolic 90 mmHg Body Temperature 98.8 F O2 % BldC Oximetry 97 % 08/13/2016 Weight 252.00 lb Heart Rate 96 /min BP Systolic 130 mmHg BP Diastolic 86 mmHg Body Temperature 98.3 F O2 % BldC Oximetry 98 % 07/06/2016 Weight 246.00 lb with shoes Heart Rate 84 /min BP Systolic Sitting 118 mmHg BP Diastolic Sitting 72 mmHg O2 % BldC Oximetry 97 % 06/01/2016 Weight 236.00 lb Heart Rate 74 /min BP Systolic Sitting 136 mmHg BP Diastolic Sitting 80 mmHg Respiratory Rate 15 /min O2 % BldC Oximetry 98 % 04/27/2016 Weight 242.00 lb Heart Rate 86 /min BP Systolic Sitting 110 mmHg BP Diastolic Sitting 72 mmHg O2 % BldC Oximetry 98 % 10/30/2015 Height 72 inches 6'0" Weight 236.00 lb Heart Rate 70 /min BP Systolic Sitting 128 mmHg BP Diastolic Sitting 84 mmHg Respiratory Rate 15 /min Body Temperature 98.4 F O2 % BldC Oximetry 98 % BMI (Body Mass Index) 32.0 kg/m2 09/24/2015 Height 72 inches 6'0" Weight 234.00 lb Heart Rate 78 /min BP Systolic Sitting 120 mmHg BP Diastolic Sitting 81 mmHg Respiratory Rate 16 /min Body Temperature 98.3 F Pain Level 0 O2 % BldC Oximetry 97 % BMI (Body Mass Index) 31.7 kg/m2 07/11/2015 Height 72 inches 6'0" Weight 246.75 lb Heart Rate 72 /min BP Systolic Sitting 111 mmHg BP Diastolic Sitting 69 mmHg Body Temperature 97.0 F O2 % BldC Oximetry 97 % BMI (Body Mass Index) 33.5 kg/m2 06/02/2015 Height 72 inches 6'0" Weight 247.75 lb Heart Rate 90 /min BP Systolic Sitting 132 mmHg BP Diastolic Sitting 84 mmHg Body Temperature 98.2 F O2 % BldC Oximetry 98 % BMI (Body Mass Index) 33.6 kg/m2 04/18/2015 Height 72 inches 6'0" Weight 253.00 lb Heart Rate 70 /min BP Systolic Sitting 128 mmHg BP Diastolic Sitting 82 mmHg Respiratory Rate 13 /min Body Temperature 98.7 F O2 % BldC Oximetry 98 % BMI (Body Mass Index) 34.3 kg/m2 04/03/2015 Height 72 inches 6'0" Weight 250.00 lb Heart Rate 83 /min BP Systolic 133 mmHg BP Diastolic 87 mmHg BMI (Body Mass Index) 33.9 kg/m2 02/07/2015 Height 72 inches 6'0" Weight 249.00 lb Heart Rate 73 /min BP Systolic 112 mmHg BP Diastolic 69 mmHg Body Temperature 98.3 F BMI (Body Mass Index) 33.8 kg/m2 01/07/2015 Weight 251.00 lb Heart Rate 75 /min BP Systolic Sitting 115 mmHg BP Diastolic Sitting 71 mmHg Body Temperature 97.2 F 11/29/2014 Height 72 inches 6'0" Weight 253.00 lb Heart Rate 70 /min BP Systolic 98 mmHg BP Diastolic 65 mmHg Body Temperature 97.9 F BMI (Body Mass Index) 34.3 kg/m2 10/22/2014 Height 72 inches 6'0" Weight 257.00 lb Heart Rate 76 /min BP Systolic 116 mmHg BP Diastolic 78 mmHg Body Temperature 97.3 F BMI (Body Mass Index) 34.9 kg/m2 10/08/2014 Weight 257.00 lb Heart Rate 72 /min BP Systolic Sitting 122 mmHg BP Diastolic Sitting 76 mmHg Body Temperature 97.3 F 08/14/2014 Height 72 inches 6'0" Weight 250.00 lb Heart Rate 76 /min BP Systolic Sitting 142 mmHg BP Diastolic Sitting 90 mmHg Respiratory Rate 16 /min BMI (Body Mass Index) 33.9 kg/m2 08/13/2014 Weight 252.00 lb Heart Rate 102 /min BP Systolic Sitting 140 mmHg BP Diastolic Sitting 89 mmHg Body Temperature 97.9 F O2 % BldC Oximetry 97 % 07/09/2014 Height 74 inches 6'2" Weight 236.50 lb Heart Rate 89 /min BP Systolic Sitting 130 mmHg BP Diastolic Sitting 74 mmHg Body Temperature 98.2 F O2 % BldC Oximetry 97 % BMI (Body Mass Index) 30.4 kg/m2 03/13/2014 Weight 226.00 lb Heart Rate 84 /min BP Systolic Sitting 108 mmHg BP Diastolic Sitting 68 mmHg Body Temperature 97.3 F 02/26/2014 Height 72.5 inches 6'0.50" Weight 224.00 lb Heart Rate 72 /min BP Systolic Sitting 126 mmHg BP Diastolic Sitting 80 mmHg Respiratory Rate 12 /min BMI (Body Mass Index) 30.0 kg/m2 01/07/2014 Height 72.5 inches 6'0.50" Weight 226.00 lb Heart Rate 62 /min BP Systolic Sitting 114 mmHg BP Diastolic Sitting 80 mmHg Body Temperature 98.0 F BMI (Body Mass Index) 30.2 kg/m2 12/06/2013 Height 72.5 inches 6'0.50" Weight 217.00 lb Heart Rate 76 /min BP Systolic Sitting 118 mmHg BP Diastolic Sitting 68 mmHg Body Temperature 98.0 F BMI (Body Mass Index) 29.0 kg/m2 11/08/2013 Weight 208.00 lb Heart Rate 88 /min BP Systolic Sitting 120 mmHg BP Diastolic Sitting 98 mmHg Body Temperature 98.0 F 10/09/2013 Height 74 inches 6'2" Weight 210.00 lb Heart Rate 80 /min BP Systolic Sitting 118 mmHg BP Diastolic Sitting 86 mmHg Respiratory Rate 16 /min BMI (Body Mass Index) 27.0 kg/m2 10/02/2013 Weight 215.00 lb Heart Rate 72 /min BP Systolic Sitting 130 mmHg no orthostasis BP Diastolic Sitting 84 mmHg no orthostasis Respiratory Rate 15 /min Body Temperature 98.2 F 08/16/2013 Weight 216.00 lb Heart Rate 80 /min BP Systolic 122 mmHg BP Diastolic 88 mmHg Body Temperature 98.4 F O2 % BldC Oximetry 98 % 08/14/2013 Heart Rate 70 /min BP Systolic Sitting 120 mmHg BP Diastolic Sitting 70 mmHg Respiratory Rate 16 /min 07/12/2013 Weight 211.50 lb without shoes Heart Rate 64 /min BP Systolic Sitting 110 mmHg BP Diastolic Sitting 70 mmHg 06/22/2013 Heart Rate 76 /min BP Systolic Sitting 120 mmHg BP Diastolic Sitting 80 mmHg Respiratory Rate 18 /min 05/28/2013 Weight 213.25 lb Heart Rate 76 /min BP Systolic 122 mmHg BP Diastolic 76 mmHg 04/03/2013 Weight 217.00 lb Heart Rate 68 /min BP Systolic Sitting 124 mmHg BP Diastolic Sitting 72 mmHg 03/09/2013 Weight 222.00 lb Heart Rate 66 /min BP Systolic Sitting 120 mmHg BP Diastolic Sitting 84 mmHg 02/15/2013 Weight 222.75 lb Heart Rate 62 /min BP Systolic Sitting 118 mmHg BP Diastolic Sitting 70 mmHg 02/01/2013 Weight 227.00 lb Heart Rate 70 /min BP Systolic Sitting 110 mmHg BP Diastolic Sitting 70 mmHg 01/26/2013 Weight 230.50 lb Heart Rate 68 /min BP Systolic Sitting 110 mmHg BP Diastolic Sitting 68 mmHg 01/16/2013 Weight 232.00 lb Heart Rate 74 /min BP Systolic Sitting 124 mmHg BP Diastolic Sitting 80 mmHg 12/25/2012 Weight 235.00 lb Heart Rate 66 /min BP Systolic Sitting 120 mmHg BP Diastolic Sitting 70 mmHg Body Temperature 98.1 F 11/03/2012 Weight 256.00 lb Heart Rate 60 /min BP Systolic Sitting 120 mmHg BP Diastolic Sitting 70 mmHg 07/18/2012 Height 73 inches 6'1" Weight 259.00 lb w/ boots Heart Rate 76 /min BP Systolic Sitting 117 mmHg BP Diastolic Sitting 78 mmHg BMI (Body Mass Index) 34.2 kg/m2 03/07/2012 Height 73 inches 6'1" Weight 256.00 lb Heart Rate 64 /min BP Systolic Sitting 122 mmHg BP Diastolic Sitting 72 mmHg BMI (Body Mass Index) 33.8 kg/m2 11/25/2011 Height 73 inches 6'1" Weight 250.00 lb Heart Rate 74 /min BP Systolic Sitting 138 mmHg BP Diastolic Sitting 80 mmHg BMI (Body Mass Index) 33.0 kg/m2 10/26/2011 Height 73 inches 6'1" Weight 255.00 lb Heart Rate 76 /min BP Systolic Sitting 144 mmHg BP Diastolic Sitting 80 mmHg BMI (Body Mass Index) 33.6 kg/m2 10/08/2011 Height 73 inches 6'1" Weight 256.00 lb Heart Rate 65 /min BP Systolic Sitting 130 mmHg L BP Diastolic Sitting 94 mmHg L BMI (Body Mass Index) 33.8 kg/m2 10/07/2011 Height 73 inches 6'1" Weight 257.00 lb Heart Rate 78 /min BP Systolic Sitting 142 mmHg BP Diastolic Sitting 80 mmHg BMI (Body Mass Index) 33.9 kg/m2 09/29/2010 Weight 245.00 lb Heart Rate 76 /min BP Systolic 114 mmHg BP Diastolic 76 mmHg 09/28/2010 Height 72 inches 6'0" Weight 246.00 lb Heart Rate 80 /min BP Systolic 120 mmHg BP Diastolic 70 mmHg Body Temperature 99.6 F BMI (Body Mass Index) 33.4 kg/m2 09/25/2010 Weight 247.00 lb Heart Rate 80 /min BP Systolic 160 mmHg BP Diastolic 90 mmHg 09/17/2010 Weight 243.00 lb Heart Rate 84 /min BP Systolic 138 mmHg BP Diastolic 82 mmHg 09/11/2010 Weight 251.00 lb Heart Rate 82 /min BP Systolic 140 mmHg BP Diastolic 80 mmHg 09/01/2010 Weight 253.50 lb Heart Rate 64 /min BP Systolic 110 mmHg BP Diastolic 70 mmHg 08/21/2010 Weight 253.00 lb Heart Rate 76 /min BP Systolic 130 mmHg BP Diastolic 80 mmHg 06/12/2010 Weight 248.50 lb Heart Rate 60 /min BP Systolic 134 mmHg BP Diastolic 78 mmHg 04/28/2010 Weight 248.50 lb Heart Rate 82 /min BP Systolic 130 mmHg BP Diastolic 78 mmHg Results Test Date Test Result H/L Range Note Lipid Profile (Trig/Chol/HDL) 01/28/2018 Triglycerides 251 mg/dL 1 Cholesterol 131 mg/dL 2 HDL Cholesterol 35.1 mg/dL 3 LDL Cholesterol 46 mg/dL 4 Comp Metabolic Panel 01/28/2018 Sodium 140 mmol/L 135-145 Potassium 3.8 mmol/L 3.5-5.0 Chloride 103 mmol/L 101-111 Co2 Carbon Dioxide 29 mmol/L 22-32 Anion Gap 8 mmol/L 2-11 Glucose 110 mg/dL High 70-100 Blood Urea Nitrogen 13 mg/dL 6-24 Creatinine 0.91 mg/dL 0.67-1.17 BUN/Creatinine Ratio 14.3 8-20 Calcium 9.2 mg/dL 8.6-10.3 Total Protein 6.7 g/dL 6.4-8.9 Albumin 4.3 g/dL 3.2-5.2 Globulin 2.4 g/dL 2-4 Albumin/Globulin Ratio 1.8 1-3 Total Bilirubin 0.40 mg/dL 0.2-1.0 Alkaline Phosphatase 53 U/L 34-104 Alt 26 U/L 7-52 Ast 16 U/L 13-39 Egfr Non- 87.2 >60 Egfr 105.5 >60 5 Laboratory test finding 01/28/2018 Hemoglobin A1c (Glyco 6.1 % High 4.0- 5.6 6 HGB) Urine Microalbumin Random 01/28/2018 Ur Microalbumin (mg/L) < 15.0 Urine Creatinine 276.41 mg/dL Urine Microalbumin/Creatinine TNP <31 7 Laboratory test finding 09/29/2017 Hemoglobin A1c 6.4 5-7 Comp Metabolic Panel 06/18/2017 Sodium 138 mmol/L 133-145 Potassium 4.5 mmol/L 3.5-5.0 Chloride 103 mmol/L 101-111 Co2 Carbon Dioxide 27 mmol/L 22-32 Anion Gap 8 mmol/L 2-11 Glucose 179 mg/dL High 70-100 Blood Urea Nitrogen 19 mg/dL 6-24 Creatinine 0.92 mg/dL 0.67-1.17 BUN/Creatinine Ratio 20.7 High 8-20 Calcium 9.5 mg/dL 8.6-10.3 Total Protein 7.1 g/dL 6.4-8.9 Albumin 4.5 g/dL 3.2-5.2 Globulin 2.6 g/dL 2-4 Albumin/Globulin Ratio 1.7 1-3 Total Bilirubin 0.50 mg/dL 0.2-1.0 Alkaline Phosphatase 67 U/L 34-104 Alt 31 U/L 7-52 Ast 21 U/L 13-39 Egfr Non- 86.4 >60 Egfr 111.1 >60 8 Laboratory test finding 06/18/2017 Hemoglobin A1c (Glyco 5.7 % High 4.0- 5.6 9 HGB) CBC Auto Diff 06/18/2017 White Blood Count 7.4 10^3/uL 3.5-10.8 Red Blood Count 4.76 10^6/uL 4.0-5.4 Hemoglobin 13.8 g/dL Low 14.0-18.0 Hematocrit 40 % Low 42-52 Mean Corpuscular Volume 85 fL 80-94 Mean Corpuscular Hemoglobin 29 pg 27-31 Mean Corpuscular HGB Conc 34 g/dL 31-36 Red Cell Distribution Width 14 % 10.5-15 Platelet Count 209 10^3/uL 150-450 Mean Platelet Volume 9 um3 7.4-10.4 Abs Neutrophils 4.7 10^3/uL 1.5-7.7 Abs Lymphocytes 1.9 10^3/uL 1.0-4.8 Abs Monocytes 0.6 10^3/uL 0-0.8 Abs Eosinophils 0.1 10^3/uL 0-0.6 Abs Basophils 0.1 10^3/uL 0-0.2 Abs Nucleated RBC 0 10^3/uL Granulocyte % 63.3 % 38-83 Lymphocyte % 25.7 % 25-47 Monocyte % 7.8 % 1-9 Eosinophil % 2.0 % 0-6 Basophil % 1.2 % 0-2 Nucleated Red Blood Cells % 0.1 Laboratory test finding 06/18/2017 Vitamin B12 392 pg/mL 180-914 10 Urine Microalbumin Random 04/01/2017 Urine Creatinine 211.85 mg/dL Ur Microalbumin (mg/L) < 15.0 mg/L Urine Microalbumin/Creatinine TNP ug/mg <31 11 Laboratory test finding 02/11/2017 Surgical Pathology SEE RESULT BELOW 12, 13 Laboratory test finding 02/08/2017 Culture Throat SEE RESULT BELOW 14 Lipid Profile 02/08/2017 Triglycerides 238 mg/dL 15 (Trig/Chol/HDL) Cholesterol 143 mg/dL 16 HDL Cholesterol 32.4 mg/dL 17 LDL Cholesterol 63 mg/dL 18 Comp Metabolic Panel 02/08/2017 Sodium 138 mmol/L 133-145 Potassium 4.1 mmol/L 3.5-5.0 Chloride 102 mmol/L 101-111 Co2 Carbon Dioxide 28 mmol/L 22-32 Anion Gap 8 mmol/L 2-11 Glucose 174 mg/dL High 70-100 Blood Urea Nitrogen 16 mg/dL 6-24 Creatinine 0.86 mg/dL 0.67-1.17 BUN/Creatinine Ratio 18.6 8-20 Calcium 9.2 mg/dL 8.6-10.3 Total Protein 7.0 g/dL 6.4-8.9 Albumin 4.5 g/dL 3.2-5.2 Globulin 2.5 g/dL 2-4 Albumin/Globulin Ratio 1.8 1-3 Total Bilirubin 0.40 mg/dL 0.2-1.0 Alkaline Phosphatase 76 U/L 34-104 Alt 64 U/L High 7-52 Ast 37 U/L 13-39 Egfr Non- 93.4 >60 Egfr 120.1 >60 19 Laboratory test 02/08/2017 Hemoglobin A1c 7.7 % High Less than 6.0 20 finding (Glyco HGB) Laboratory test 01/29/2017 Syphillis Igg Nonreactive Nonreactive 21 finding W/Reflex RPR Urinalysis Profile 01/29/2017 Urine Color Yellow Urine Appearance Clear Urine Specific [place] 1.008 Low 1.010-1.030 Urine pH 5.0 5-9 Urine Urobilinogen Negative Negative Urine Ketones Negative Negative Urine Protein Negative Negative Urine Leukocytes Negative Negative Urine Blood Negative Negative Urine Nitrite Negative Negative Urine Bilirubin Negative Negative Urine Glucose Negative Negative Laboratory test finding 01/29/2017 Amylase 21 U/L Low 29-103 Lipase 28 U/L 11.0-82.0 C Reactive Protein 11.58 mg/L High < 5.00 22 Lactic Acid 1.1 mmol/L 0.5-2.0 23 Comp Metabolic Panel 01/29/2017 Sodium 135 mmol/L 133-145 Potassium 3.9 mmol/L 3.5-5.0 Chloride 102 mmol/L 101-111 Co2 Carbon Dioxide 25 mmol/L 22-32 Anion Gap 8 mmol/L 2-11 Glucose 151 mg/dL High 70-100 Blood Urea Nitrogen 11 mg/dL 6-24 Creatinine 0.84 mg/dL 0.67-1.17 BUN/Creatinine Ratio 13.1 8-20 Calcium 9.3 mg/dL 8.6-10.3 Total Protein 7.3 g/dL 6.4-8.9 Albumin 4.4 g/dL 3.2-5.2 Globulin 2.9 g/dL 2-4 Albumin/Globulin Ratio 1.5 1-3 Total Bilirubin 0.50 mg/dL 0.2-1.0 Alkaline Phosphatase 82 U/L 34-104 Alt 95 U/L High 7-52 Ast 54 U/L High 13-39 Egfr Non- 96.0 >60 Egfr 123.4 >60 24 CBC Auto Diff 01/29/2017 White Blood Count 6.3 10^3/uL 3.5-10.8 Red Blood Count 4.65 10^6/uL 4.0-5.4 Hemoglobin 13.9 g/dL Low 14.0-18.0 Hematocrit 40 % Low 42-52 Mean Corpuscular Volume 87 fL 80-94 Mean Corpuscular Hemoglobin 30 pg 27-31 Mean Corpuscular HGB Conc 34 g/dL 31-36 Red Cell Distribution Width 13 % 10.5-15 Platelet Count 159 10^3/uL 150-450 Mean Platelet Volume 8 um3 7.4-10.4 Abs Neutrophils 4.4 10^3/uL 1.5-7.7 Abs Lymphocytes 1.1 10^3/uL 1.0-4.8 Abs Monocytes 0.7 10^3/uL 0-0.8 Abs Eosinophils 0.2 10^3/uL 0-0.6 Abs Basophils 0 10^3/uL 0-0.2 Abs Nucleated RBC 0 10^3/uL Granulocyte % 68.6 % 38-83 Lymphocyte % 17.0 % Low 25-47 Monocyte % 10.9 % High 1-9 Eosinophil % 2.9 % 0-6 Basophil % 0.6 % 0-2 Nucleated Red Blood Cells % 0.1 HSV/VZV Derm PCR 01/29/2017 hs/VZ Source PENILE SHAFT HSV 1 PCR Negative Negative HSV 2 PCR Positive Negative 25 Varicella Zoster Source PENILE SHAFT Varicella Zoster Result Negative Negative 26 Lipid Profile (Trig/Chol/HDL) 04/24/2016 Triglycerides 271 mg/dL 27 Cholesterol 155 mg/dL 28 HDL Cholesterol 30.1 mg/dL 29 LDL Cholesterol 71 mg/dL 30 Comp Metabolic Panel 04/24/2016 Sodium 138 mmol/L 133-145 Potassium 4.0 mmol/L 3.5-5.0 Chloride 102 mmol/L 101-111 Co2 Carbon Dioxide 31 mmol/L 22-32 Anion Gap 5 mmol/L 2-11 Glucose 128 mg/dL High 70-100 Blood Urea Nitrogen 15 mg/dL 6-24 Creatinine 0.94 mg/dL 0.67-1.17 BUN/Creatinine Ratio 16.0 8-20 Calcium 9.3 mg/dL 8.6-10.3 Total Protein 6.7 g/dL 6.4-8.9 Albumin 4.3 g/dL 3.2-5.2 Globulin 2.4 g/dL 2-4 Albumin/Globulin Ratio 1.8 1-3 Total Bilirubin 0.40 mg/dL 0.2-1.0 Alkaline Phosphatase 60 U/L 34-104 Alt 33 U/L 7-52 Ast 22 U/L 13-39 Egfr Non- 84.6 >60 Egfr 108.8 >60 31 Laboratory test finding 04/24/2016 TSH (Thyroid Stim Horm) 2.08 mcIU/mL 0.34-5.60 Hemoglobin A1c (Glyco HGB) 5.9 % Less than 6.0 32 Liver Function Panel 10/02/2014 Total Protein 7.0 g/dL 6.4-8.9 Albumin 4.6 g/dL 3.2-5.2 Globulin 2.4 g/dL 2-4 Albumin/Globulin Ratio 1.9 1-3 Total Bilirubin 0.40 mg/dL 0.2-1.0 Direct Bilirubin 0.10 mg/dL 0.03-0.18 Indirect Bilirubin 0.3 mg/dL 0.3-1.0 Alkaline Phosphatase 68 U/L 34-104 Alt 43 U/L 7-52 Ast 23 U/L 13-39 Comp Metabolic Panel 10/02/2014 Sodium 137 mmol/L 133-145 33 Potassium 4.1 mmol/L 3.5-5.0 33 Chloride 103 mmol/L 101-111 33 Co2 Carbon Dioxide 28 mmol/L 22-32 33 Anion Gap 6 mmol/L 2-11 33 Glucose 143 mg/dL High 70-100 33 Blood Urea Nitrogen 17 mg/dL 6-24 33 Creatinine 0.93 mg/dL 0.67-1.17 33 BUN/Creatinine Ratio 18.3 8-20 33 Calcium 9.2 mg/dL 8.6-10.3 33 Total Protein 7.0 g/dL 6.4-8.9 33 Albumin 4.6 g/dL 3.2-5.2 33 Globulin 2.4 g/dL 2-4 33 Albumin/Globulin Ratio 1.9 1-3 33 Total Bilirubin 0.40 mg/dL 0.2-1.0 33 Alkaline Phosphatase 68 U/L 34-104 33 Alt 43 U/L 7-52 33 Ast 23 U/L 13-39 33 Egfr Non- 86.4 >60 33 Egfr 111.1 >60 33, 34 Laboratory test finding 10/02/2014 Hemoglobin A1c 6.1 % High Less than 6.0 33, 35 Lipid Profile 07/08/2014 Triglycerides 286 mg/dL 36, 37 (Trig/Chol/HDL) Cholesterol 163 mg/dL 36, 38 HDL Cholesterol 34.6 mg/dL 36, 39 LDL Cholesterol 71 mg/dL 36, 40 Comp Metabolic Panel 07/08/2014 Sodium 137 mmol/L 133-145 36 Potassium 4.3 mmol/L 3.5-5.0 36 Chloride 100 mmol/L Low 101-111 36 Co2 Carbon Dioxide 31 mmol/L 22-32 36 Anion Gap 6 mmol/L 2-11 36 Glucose 111 mg/dL High 70-100 36 Blood Urea Nitrogen 16 mg/dL 6-24 36 Creatinine 0.90 mg/dL 0.67-1.17 36 BUN/Creatinine Ratio 17.8 8-20 36 Calcium 9.4 mg/dL 8.6-10.3 36 Total Protein 7.0 g/dL 6.4-8.9 36 Albumin 4.4 g/dL 3.2-5.2 36 Globulin 2.6 g/dL 2-4 36 Albumin/Globulin Ratio 1.7 1-3 36 Total Bilirubin 0.30 mg/dL 0.2-1.0 36 Alkaline Phosphatase 71 U/L 34-104 36 Alt 66 U/L High 7-52 36 Ast 28 U/L 13-39 36 Egfr Non- 89.7 >60 36 Egfr 115.3 >60 36, 41 Laboratory test finding 09/29/2013 Activated Partial 37.8 seconds High 24.0-36.1 Thrombo Time TSH (Thyroid Stimulating Horm) 1.03 IU/mL 0.34-5.60 Troponin I 0.00 ng/mL <0.03 42 Inr/Protime 09/29/2013 Inr 0.97 0.85-1.06 Laboratory test finding 09/29/2013 Magnesium 2.2 mg/dL 1.9-2.7 C Reactive Protein < 1.00 mg/L < 5.00 43 Comp Metabolic Panel 09/29/2013 Sodium 140 mmol/L 133-145 Potassium 3.7 mmol/L 3.7-5.6 Chloride 103 mmol/L 101-111 Co2 Carbon Dioxide 30 mmol/L 22-32 Anion Gap 7 mmol/L 2-11 Glucose 121 mg/dL High 70-100 Blood Urea Nitrogen 16 mg/dL 6-24 Creatinine 0.98 mg/dL 0.67-1.17 BUN/Creatinine Ratio 16.3 8-20 Calcium 9.5 mg/dL 8.6-10.3 Total Protein 7.3 g/dL 6.4-8.9 Albumin 4.6 g/dL 3.2-5.2 Globulin 2.7 g/dL 2-4 Albumin/Globulin Ratio 1.7 1-3 Total Bilirubin 0.30 mg/dL 0.2-1.0 Alkaline Phosphatase 51 U/L 34-104 Alt 31 U/L 7-52 Ast 21 U/L 13-39 Egfr Non- 81.6 >60 Egfr 105.0 >60 44 CBC Auto Diff 09/29/2013 White Blood Count 5.9 10^3/uL 4.8-10.8 Red Blood Count 4.73 10^6/uL 4.0-5.4 Hemoglobin 14.3 g/dL 14.0-18.0 Hematocrit 41 % Low 42-52 Mean Corpuscular Volume 86 fL 80-94 Mean Corpuscular Hemoglobin 30 pg 27-31 Mean Corpuscular HGB Conc 35 g/dL 31-36 Red Cell Distribution Width 14 % 10.5-15 Platelet Count 187 10^3/uL 150-450 Mean Platelet Volume 8 um3 7.4-10.4 Abs Neutrophils 3.7 10^3/uL 1.5-7.7 Abs Lymphocytes 1.5 10^3/uL 1.0-4.8 Abs Monocytes 0.6 10^3/uL 0-0.8 Abs Eosinophils 0.1 10^3/uL 0-0.6 Abs Basophils 0 10^3/uL 0-0.2 Abs Nucleated RBC 0 10^3/uL Granulocyte % 62.7 % 38-83 Lymphocyte % 24.9 % Low 25-47 Monocyte % 9.3 % High 1-9 Eosinophil % 2.4 % 0-6 Basophil % 0.7 % 0-2 Nucleated Red Blood Cells % 0 Basic Metabolic Panel 08/27/2013 Sodium 139 mmol/L 133-145 Potassium 4.6 mmol/L 3.7-5.6 Chloride 104 mmol/L 101-111 Co2 Carbon Dioxide 32 mmol/L 22-32 Anion Gap 3 mmol/L 2-11 Glucose 100 mg/dL 70-100 Blood Urea Nitrogen 18 mg/dL 6-24 Creatinine 0.90 mg/dL 0.67-1.17 BUN/Creatinine Ratio 20.0 8-20 Calcium 9.5 mg/dL 8.6-10.3 Egfr Non- 90.1 >60 Egfr 115.8 >60 45 Laboratory test finding 08/27/2013 Hemoglobin A1c 5.6 % Less than 6.0 46 Lipid Profile (Trig/Chol/HDL) 08/27/2013 Triglycerides 192 mg/dL 47 Cholesterol 248 mg/dL 48 HDL Cholesterol 37.0 mg/dL 49 LDL Cholesterol 173 mg/dL 50 Thyroglobulin AB Screen 03/03/2013 Thyroglobulin Antibody <20 IU/mL <22 51 Thyroglobulin Tumor Marker 8.9 ng/mL 52 Laboratory test finding 03/03/2013 Vitamin B1 Whole Blood 117 nmol/L 70- 180 53 Paraneoplastic Evaluation 03/03/2013 Paraneoplastic Ab Interp See Comment 54 Anti-Neuronal Nuclear Ab Type1 Negative titer <1:240 Anti-Neuronal Nuclear Ab Type2 Negative titer <1:240 Anti-Neuronal Nuclear Ab Type3 Negative titer <1:240 Anti-Glial/Neuronal Nuc Ab-1 A Negative titer <1:240 Purkinje Cell Cytoplasm Type 1 Negative titer <1:240 Purkinje Cell Cytoplasm Type 2 Negative titer <1:240 Pur[place]je Cell Cytoplasm Typ Tr Negative titer <1:240 Amphiphysin Antibody Negative titer <1:240 CRMP-5 IgG Antibody Negative titer 55 Anti-Striated Muscle Antibody Negative titer <1:60 Calcium Channel Binding Ab P/Q 0.00 nmol/L <=0.02 N Type Calcium Channel Binding 0.00 nmol/L <=0.03 ACh Receptor Muscle Binding Ab 0.00 nmol/L <=0.02 AChR Ganglionic Neuronal Ab 0.00 nmol/L <=0.02 Voltage-Gated Potassium Chann 0.00 nmol/L <=0.02 56 Laboratory test finding 03/03/2013 Vitamin B12 657 pg/mL 180-914 TSH (Thyroid Stimulating Horm) 1.20 miu/mL 0.34-5.60 Maddie (Anti-Nuclear AB) Screen Negative Negative Creatinine 02/19/2013 Creatinine 0.80 mg/dL 0.50-1.40 Egfr Non- 103.2 >60 Egfr 132.7 >60 57 Laboratory test 02/19/2013 Blood Urea Nitrogen 14 mg/dL 6-24 finding Laboratory test 10/18/2012 Hemoglobin A1c 6.3 % High Less than 6.0 58 finding CBC Auto Diff 10/18/2012 White Blood Count 7.1 10^3/uL 4.8-10.8 Red Blood Count 4.55 10^6/uL 4.0-5.4 Hemoglobin 13.5 g/dL Low 14.0-18.0 Hematocrit 40 % Low 42-52 Mean Corpuscular Volume 88 fL 80-94 Mean Corpuscular Hemoglobin 30 pg 27-31 Mean Corpuscular HGB Conc 34 g/dL 31-36 Red Cell Distribution Width 14 % 10.5-15 Platelet Count 194 10^3/uL 150-450 Mean Platelet Volume 9 um3 7.4-10.4 Abs Neutrophils 4.4 10^3/uL 1.5-7.7 Abs Lymphocytes 1.9 10^3/uL 1.0-4.8 Abs Monocytes 0.6 10^3/uL 0-0.8 Abs Eosinophils 0.2 10^3/uL 0-0.6 Abs Basophils 0 10^3/uL 0-0.2 Abs Nucleated RBC 0 10^3/uL Granulocyte % 62.1 % 38-83 Lymphocyte % 26.2 % 25-47 Monocyte % 8.5 % 1-9 Eosinophil % 2.8 % 0-6 Basophil % 0.4 % 0-2 Nucleated Red Blood Cells % 0 Lipid Profile (Trig/Chol/HDL) 10/18/2012 Triglycerides 248 mg/dL High 40- 200 Cholesterol 158 mg/dL Less than 200 HDL Cholesterol 30 mg/dL Low 40-60 59 Cholesterol/HDL Ratio 5.3 Average High 1-4.44 LDL Cholesterol 78.4 mg/dL Less Than 100 60 Comp Metabolic Panel 10/18/2012 Sodium 145 mmol/L 133-145 Potassium 4.0 mmol/L 3.5-5.0 Chloride 103 mmol/L 101-111 Co2 Carbon Dioxide 34.0 mmol/L High 22-32 Anion Gap 8.0 mmol/L 2-11 Glucose 143 mg/dL High 70-100 Blood Urea Nitrogen 15 mg/dL 6-24 Creatinine 0.90 mg/dL 0.50-1.40 BUN/Creatinine Ratio 16.7 8-20 Calcium 9.8 mg/dL 8.1-9.9 Total Protein 6.5 g/dL 6.2-8.1 Albumin 4.2 g/dL 3.6-5.4 Globulin 2.3 g/dL 2-4 Albumin/Globulin Ratio 1.8 1-3 Total Bilirubin 0.7 mg/dL 0.4-1.5 Alkaline Phosphatase 74 U/L 30-110 Alt 44 U/L 14-54 Ast 28 U/L 12-42 Egfr Non- 90.4 >60 Egfr 116.3 >60 61 Basic Metabolic Panel 11/12/2011 Sodium 140 mmol/L 135-145 Potassium 4.0 mmol/L 3.5-5.0 Chloride 103 mmol/L 101-111 Co2 (Carbon Dioxide) 29.0 mmol/L 22-32 Anion Gap 8.0 mmol/L 2-11 62 Glucose 98 mg/dL 70-100 BUN 13 mg/dL 6-24 Creatinine 0.8 mg/dL 0.50-1.40 One Over Creatinine 1.25 BUN/Creatinine Ratio 16.3 8-20 Calcium 9.7 mg/dL 8.1-9.9 eGFR Non- 104.1 > 60 eGFR 133.8 > 60 63 CBC Auto Diff 11/12/2011 White Blood Count 7.6 CUMM 4.8-10.8 Red Cell Count 4.38 CUMM Low 4.6-6.2 Hemoglobin 13.5 g/dL Low 14.0-18.0 Hematocrit 38 % Low 42-52 Mean Corpuscular Volume 88 um3 80-94 Mean Corpuscular Hemoglob 31 pg 27-31 Mean Corpuscular HGB Cone 35 g/dL 32-36 Redcell Distribution WDTH 13 % 10.5-15 Platelet Count 183 CUMM 150-450 Mean Platelet Volume 9.6 um3 7.4-10.4 64 Iron & Iron Binding Capacity 11/12/2011 Iron Total 74 g/dL 45-182 Unsaturated Iron Binding 236 g/dL Total Iron Binding Capacity 310 g/dL 250-450 % Iron Saturation 24 % 15-55 Protein Electrophoresis Serum 11/12/2011 Albumin 3.95 GM/DL 3.0-4.35 Alpha 1 0.17 GM/DL 0.09-0.33 Alpha 2 1.05 GM/DL 0.59-1.18 Beta 0.86 GM/DL 0.68-1.02 Gamma 0.88 GM/DL 0.76-1.60 Albumin % 57.2 % 46-63 Alpha 1 % 2.5 % 1.2-5.3 Alpha 2 % 15.2 % 9-17 Beta % 12.5 % 10-16 Gamma % 12.8 % 12-22 A/G Ratio 1.3 0.9-2 Total Protein 6.9 GM/DL 6.2-8.1 Spep Comments (SEE NOTE) 65 Laboratory test finding 11/12/2011 LDH 145 U/L 95-185 Ferritin 98 NG/ML 24-336 Vitamin B12 590 pg/mL 180-914 Manual Differential 11/12/2011 Polysegmented Neutrophil 70 % 38-83 Lymphocyte 24 % Low 25-47 Monocyte 6 % 0-13 Absolute Neutrophil Count 5.30 RBC Morphology NORMAL CBC Auto Diff 10/04/2011 White Blood Count 9.2 CUMM 4.8-10.8 Red Cell Count 4.23 CUMM Low 4.6-6.2 Hemoglobin 12.9 g/dL Low 14.0-18.0 Hematocrit 36 % Low 42-52 Mean Corpuscular Volume 86 um3 80-94 Mean Corpuscular Hemoglob 31 pg 27-31 Mean Corpuscular HGB Cone 36 g/dL 32-36 Redcell Distribution WDTH 13 % 10.5-15 Platelet Count 206 CUMM 150-450 Mean Platelet Volume 8.6 um3 7.4-10.4 Gran % 77.8 % 38-83 Lymph % 14.4 % Low 25-47 Mononuclear % 5.9 % 1-9 Eosinophil % 1.6 % 0-6 Basophil % 0.3 % 0-2 Abs Lymphs 1.3 1.0-4.8 Abs Mononuclear 0.5 0-0.8 Absolute Neutrophil Count 7.1 1.5-7.7 Abs Eosinophils 0.1 0-0.6 Abs Basophils 0 0-0.2 66 Protime 10/04/2011 Inr 0.92 0.88-1.13 67 Protime 10.9 SEC 10.3-13.5 68 Laboratory test 10/04/2011 D Dimer Quantitative < 200 NG/ML Less Than 230 69 finding Comp Metabolic Panel 10/04/2011 Sodium 140 mmol/L 135-145 Potassium 3.7 mmol/L 3.5-5.0 Chloride 101 mmol/L 101-111 Co2 (Carbon Dioxide) 28.0 mmol/L 22-32 Anion Gap 11.0 mmol/L 2-11 70 Glucose 112 mg/dL High 70-100 BUN 12 mg/dL 6-24 Creatinine 0.9 mg/dL 0.50-1.40 One Over Creatinine 1.11 BUN/Creatinine Ratio 13.3 8-20 Calcium 8.9 mg/dL 8.1-9.9 Total Protein 6.7 GM/DL 6.2-8.1 Albumin 4.3 GM/DL 3.6-5.4 Globulin 2.4 GM/DL 2-4 Albumin/Globulin Ratio 1.8 1-3 Bilirubin Total 0.6 mg/dL 0.4-1.5 71 Alkaline Phosphatase 69 U/L 39-117 Alt (SGPT) 55 U/L 17-63 Ast (Sgot) 31 U/L 12-42 eGFR Non- 90.8 > 60 eGFR 116.8 > 60 72 Laboratory test finding 10/04/2011 Lipase 39 U/L 22-51 Troponin-I 0.01 NG/ML 0-0.06 73 Lipid Profile (Trig/Chol/HDL) 06/12/2011 Triglyceride 154 mg/dL 40-200 Cholesterol 137 mg/dL Less Than 200 74 High Density Lipoprotein 31 mg/dL Low 40-60 75 Cholesterol/HDL Ratio 4.42 AVERAGE 1-4.97 Low Density Lipoprotein 75 mg/dL Less Than 100 76 Laboratory test finding 06/12/2011 Hemoglobin A1c 5.9 % Less Than 6.0 77 Comp Metabolic Panel 06/12/2011 Sodium 142 mmol/L 135-145 Potassium 4.1 mmol/L 3.5-5.0 Chloride 104 mmol/L 101-111 Co2 (Carbon Dioxide) 29.0 mmol/L 22-32 Anion Gap 9.0 mmol/L 2-11 78 Glucose 126 mg/dL High 70-100 BUN 14 mg/dL 6-24 Creatinine 0.9 mg/dL 0.50-1.40 One Over Creatinine 1.11 BUN/Creatinine Ratio 15.6 8-20 Calcium 9.5 mg/dL 8.1-9.9 Total Protein 6.4 GM/DL 6.2-8.1 Albumin 4.4 GM/DL 3.6-5.4 Globulin 2.0 GM/DL 2-4 Albumin/Globulin Ratio 2.2 1-3 Bilirubin Total 0.7 mg/dL 0.4-1.5 79 Alkaline Phosphatase 63 U/L 39-117 Alt (SGPT) 41 U/L 17-63 Ast (Sgot) 24 U/L 12-42 eGFR Non- 90.8 > 60 eGFR 116.8 > 60 80 Laboratory test finding 03/24/2010 Hemoglobin A1c 5.9 % Less Than 6.0 81 Lipid Profile (Trig/Chol/HDL) 03/24/2010 Triglyceride 169 mg/dL 40-200 Cholesterol 127 mg/dL Less Than 200 82 High Density Lipoprotein 28 mg/dL Low 40-60 83 Cholesterol/HDL Ratio 4.54 AVERAGE 1-4.97 Low Density Lipoprotein 65 mg/dL Less Than 100 84 Comp Metabolic Panel 03/24/2010 Sodium 142 mmol/L 135-145 Potassium 4.1 mmol/L 3.5-5.0 Chloride 106 mmol/L 101-111 Co2 (Carbon Dioxide) 31.0 mmol/L 22-32 Anion Gap 5.0 mmol/L 2-11 85 Glucose 114 mg/dL High 70-100 86 BUN 14 mg/dL 6-24 Creatinine 0.90 mg/dL 0.50-1.40 One Over Creatinine 1.10 BUN/Creatinine Ratio 15.6 8-20 Calcium 9.7 mg/dL 8.1-9.9 Total Protein 6.9 GM/DL 6.2-8.1 Albumin 4.5 GM/DL 3.6-5.4 Globulin 2.4 GM/DL 2-4 Albumin/Globulin Ratio 1.9 1-3 Bilirubin Total 0.5 mg/dL 0.4-1.5 87 Alkaline Phosphatase 60 U/L 39-117 Alt (SGPT) 40 U/L 17-63 Ast (Sgot) 24 U/L 12-42 eGFR Non- 97.0 > 60 eGFR 117.4 > 60 88 1 Desirable: <150 Borderline High: 150-199 High: 200-499 Very High: >500 2 Desirable: <200 Borderline High: 200-239 High: >239 3 Low: <40 Desirable: 40-60 High: >60 4 Desirable: <100 Near Optimal: 100-129 Borderline High: 130-159 High: 160-189 Very High: >189 5 Because ethnic data is not always readily available, this report includes an eGFR for both -Americans and non- Americans. The National Kidney Disease Education Program (NKDEP) does not endorse the use of the MDRD equation for patients that are not between the ages of 18 and 70, are , have extremes of body size, muscle mass, or nutritional status, or are non- or non-. According to the National Kidney Foundation, irrespective of diagnosis, the stage of the disease is based on the level of kidney function: Stage Description GFR(mL/min/1.73 m(2)) 1 Kidney damage with normal or decreased GFR 90 2 Kidney damage with mild decrease in GFR 60-89 3 Moderate decrease in GFR 30-59 4 Severe decrease in GFR 15-29 5 Kidney failure <15 (or dialysis) 6 Therapeutic target for the treatment of diabetes mellitus patients is <7% HBA1C, and in selective patients <6.0%. Please refer to [place] [employer] diabetic care guidelines for further information. 7 Unable to calculate due to low microalbumin 8 Because ethnic data is not always readily available, this report includes an eGFR for both -Americans and non- Americans. The National Kidney Disease Education Program (NKDEP) does not endorse the use of the MDRD equation for patients that are not between the ages of 18 and 70, are , have extremes of body size, muscle mass, or nutritional status, or are non- or non-. According to the National Kidney Foundation, irrespective of diagnosis, the stage of the disease is based on the level of kidney function: Stage Description GFR(mL/min/1.73 m(2)) 1 Kidney damage with normal or decreased GFR 90 2 Kidney damage with mild decrease in GFR 60-89 3 Moderate decrease in GFR 30-59 4 Severe decrease in GFR 15-29 5 Kidney failure <15 (or dialysis) 9 Therapeutic target for the treatment of diabetes mellitus patients is <7% HBA1C, and in selective patients <6.0%. Please refer to [place] [employer] diabetic care guidelines for further information. 10 Normal Range 180 to 914 Indeterminate Range 145 to 180 Deficient Range <145 11 Unable to calculate due to low microalbumin 12 [id number] 13 SEE RESULT BELOW Name: AMBIKA TIMMONS JR : [address]: Heather George MD Acct: [id number] Unit: [id number] AGE: 52 Location: [facility] Re02/11/17 SEX: M Status: DEP REF SPEC: [id number] OCTAVIO: 02/11/17- SUBM DR: Heather George MD REQ: [id number] RECD: 02/11/171143 STATUS: ELISA LIAO DR: Tova Cuellar MD _ ORDERED: LEVEL 4/2 COMMENTS: [id number] FINAL DIAGNOSIS 1. Colon, transverse, biopsy: -- Sessile serrated adenomatous polyp. -- No high-grade dysplasia identified. 2. Colon, left, random biopsies: -- Large intestinal mucosa with no significant pathologic abnormality. -- No evidence of microscopic/lymphocytic colitis, collagenous colitis or other chronic inflammatory bowel process identified. CLINICAL HISTORY History of abnormal CT, rectal bleeding. POST-OPERATIVE DIAGNOSIS Internal hemorrhoids, few sigmoid diverticula, diminutive polyp, otherwise normal colon, await pathology, increase fiber in diet. GROSS DESCRIPTION 1. The specimen is received in formalin labeled, Biopsy Transverse Colon Polyp, and consists of a 0.7 by up to 0.2 x 0.1 cm olsen irregular to polypoid soft tissue fragment which is submitted entirely in one cassette. 2. The specimen is received in formalin labeled, Biopsy Random Left Colon, and consists of a 0.9 x 0.6 x 0.2 cm aggregate of olsen irregular soft tissue fragments which is submitted entirely in one cassette. Signed (signature on file) Travis Null MD [id number] END OF REPORT * ML=Testing performed at Main Lab DEPARTMENT OF PATHOLOGY, [address] [place] [address] Travis Null M.D. Director [facility] # [id number] 14 SEE RESULT BELOW Name: AMBIKA TIMMONS JR : [address]: Michelle Martini NP Acct: [id number] Unit: [id number] AGE: 52 Location: [facility] Re02/08/17 SEX: M Status: REG REF SPEC: [id number] OCTAVIO: 02/08/17-[address]: Michelle Martini NP REQ: [id number] RECD: 02/08/17 STATUS: COMP _ SOURCE: THROAT SPDESC: ORDERED: Throat Culture COMMENTS: [id number] Procedure Result Reported Site Throat Culture Final 02/10/17- 852 ML Organism 1 NORMAL CLIFF Quantity 2+ * ML - MAIN LAB ([id number]) . END OF REPORT * ML=Testing performed at Main Lab DEPARTMENT OF PATHOLOGY, [address] [place] [address] Travis Null M.D. Director [facility] # [id number] 15 Desirable <150 Borderline high 150-199 High 200-499 Very High >500 16 Desirable <200 Borderline high 200-239 High >239 17 Low <40 Desirable: 40-60 High: >60 18 Desirable: <100 mg/dL Near Optimal: 100-129 mg/dL Borderline High: 130-159 mg/dL High: 160-189 mg/dL Very High: >189 mg/dL 19 Because ethnic data is not always readily available, this report includes an eGFR for both -Americans and non- Americans. The National Kidney Disease Education Program (NKDEP) does not endorse the use of the MDRD equation for patients that are not between the ages of 18 and 70, are , have extremes of body size, muscle mass, or nutritional status, or are non- or non-. According to the National Kidney Foundation, irrespective of diagnosis, the stage of the disease is based on the level of kidney function: Stage Description GFR(mL/min/1.73 m(2)) 1 Kidney damage with normal or decreased GFR 90 2 Kidney damage with mild decrease in GFR 60-89 3 Moderate decrease in GFR 30-59 4 Severe decrease in GFR 15-29 5 Kidney failure <15 (or dialysis) 20 Therapeutic target for the treatment of diabetes Mellitus patients is <7% HBA1C, and in selective patients <6.0%.Please refer to [place] [employer] Diabetic care guidelines for further information. 21 Warning: A positive result is not useful for establishing a diagnosis of syphilis. In most situations, such a result may reflect a prior treated infection; a negative result can exclude a diagnosis of syphilis except for incubating or early primary disease. 22 Acute inflammation: >10.00 23 [place] Severe Sepsis and Septic Shock Management Bundle Measure requires all lactic acids initially measuring >2.0 mmol/L be repeated. 24 Because ethnic data is not always readily available, this report includes an eGFR for both -Americans and non- Americans. The National Kidney Disease Education Program (NKDEP) does not endorse the use of the MDRD equation for patients that are not between the ages of 18 and 70, are , have extremes of body size, muscle mass, or nutritional status, or are non- or non-. According to the National Kidney Foundation, irrespective of diagnosis, the stage of the disease is based on the level of kidney function: Stage Description GFR(mL/min/1.73 m(2)) 1 Kidney damage with normal or decreased GFR 90 2 Kidney damage with mild decrease in GFR 60-89 3 Moderate decrease in GFR 30-59 4 Severe decrease in GFR 15-29 5 Kidney failure <15 (or dialysis) 25 ADDITIONAL INFORMATION This test was developed using an analyte specific reagent. Its performance characteristics were determined by [facility] in a manner consistent with CLIA requirements. This test has not been cleared or approved by the U.[place]. Food and Drug Administration. 26 ADDITIONAL INFORMATION This test was developed and its performance characteristics determined by [facility] in a manner consistent with CLIA requirements. This test has not been cleared or approved by the U.S. Food and Drug Administration. Test Performed by: [address] [id number] 27 Desirable <150 Borderline high 150-199 High 200-499 Very High >500 28 Desirable <200 Borderline high 200-239 High >239 29 Low <40 Desirable: 40-60 High: >60 30 Desirable: <100 mg/dL Near Optimal: 100-129 mg/dL Borderline High: 130-159 mg/dL High: 160-189 mg/dL Very High: >189 mg/dL 31 Because ethnic data is not always readily available, this report includes an eGFR for both -Americans and non- Americans. The National Kidney Disease Education Program (NKDEP) does not endorse the use of the MDRD equation for patients that are not between the ages of 18 and 70, are , have extremes of body size, muscle mass, or nutritional status, or are non- or non-. According to the National Kidney Foundation, irrespective of diagnosis, the stage of the disease is based on the level of kidney function: Stage Description GFR(mL/min/1.73 m(2)) 1 Kidney damage with normal or decreased GFR 90 2 Kidney damage with mild decrease in GFR 60-89 3 Moderate decrease in GFR 30-59 4 Severe decrease in GFR 15-29 5 Kidney failure <15 (or dialysis) 32 Therapeutic target for the treatment of diabetes Mellitus patients is <7% HBA1C, and in selective patients <6.0%.Please refer to [place] [employer] Diabetic care guidelines for further information. 33 DO THIS IN OCTOBER PRIOR TO NEXT VISIT 34 Because ethnic data is not always readily available, this report includes an eGFR for both -Americans and non- Americans. The National Kidney Disease Education Program (NKDEP) does not endorse the use of the MDRD equation for patients that are not between the ages of 18 and 70, are , have extremes of body size, muscle mass, or nutritional status, or are non- or non-. According to the National Kidney Foundation, irrespective of diagnosis, the stage of the disease is based on the level of kidney function: Stage Description GFR(mL/min/1.73 m(2)) 1 Kidney damage with normal or decreased GFR 90 2 Kidney damage with mild decrease in GFR 60-89 3 Moderate decrease in GFR 30-59 4 Severe decrease in GFR 15-29 5 Kidney failure <15 (or dialysis) 35 Therapeutic target for the treatment of diabetes Mellitus patients is <7% HBA1C, and in selective patients <6.0%.Please refer to [place] [employer] Diabetic care guidelines for further information. 36 FASTING 37 Desirable <150 Borderline high 150-199 High 200-499 Very High >500 38 Desirable <200 Borderline high 200-239 High >239 39 Low <40 Desirable: 40-60 High: >60 40 Desirable <100 Near Optimal 100-129 Borderline high 130-159 High 160-189 Very High >189 41 Because ethnic data is not always readily available, this report includes an eGFR for both -Americans and non- Americans. The National Kidney Disease Education Program (NKDEP) does not endorse the use of the MDRD equation for patients that are not between the ages of 18 and 70, are , have extremes of body size, muscle mass, or nutritional status, or are non- or non-. According to the National Kidney Foundation, irrespective of diagnosis, the stage of the disease is based on the level of kidney function: Stage Description GFR(mL/min/1.73 m(2)) 1 Kidney damage with normal or decreased GFR 90 2 Kidney damage with mild decrease in GFR 60-89 3 Moderate decrease in GFR 30-59 4 Severe decrease in GFR 15-29 5 Kidney failure <15 (or dialysis) 42 Reference Range and Interpretation: TnI (ng/mL) Interpretation Less Than 0.03 ng/mL Not supportive of diagnosis of ME 0.03 - 0.50 ng/mL Indeterminate: suggest serial studies if clinically indicated. Greater than 0.5 ng/mL Consistent with diagnosis of ME 43 Acute inflammation: >10.00 44 Because ethnic data is not always readily available, this report includes an eGFR for both -Americans and non- Americans. The National Kidney Disease Education Program (NKDEP) does not endorse the use of the MDRD equation for patients that are not between the ages of 18 and 70, are , have extremes of body size, muscle mass, or nutritional status, or are non- or non-. According to the National Kidney Foundation, irrespective of diagnosis, the stage of the disease is based on the level of kidney function: Stage Description GFR(mL/min/1.73 m(2)) 1 Kidney damage with normal or decreased GFR 90 2 Kidney damage with mild decrease in GFR 60-89 3 Moderate decrease in GFR 30-59 4 Severe decrease in GFR 15-29 5 Kidney failure <15 (or dialysis) 45 Because ethnic data is not always readily available, this report includes an eGFR for both -Americans and non- Americans. The National Kidney Disease Education Program (NKDEP) does not endorse the use of the MDRD equation for patients that are not between the ages of 18 and 70, are , have extremes of body size, muscle mass, or nutritional status, or are non- or non-. According to the National Kidney Foundation, irrespective of diagnosis, the stage of the disease is based on the level of kidney function: Stage Description GFR(mL/min/1.73 m(2)) 1 Kidney damage with normal or decreased GFR 90 2 Kidney damage with mild decrease in GFR 60-89 3 Moderate decrease in GFR 30-59 4 Severe decrease in GFR 15-29 5 Kidney failure <15 (or dialysis) 46 Therapeutic target for the treatment of diabetes Mellitus patients is <7% HBA1C, and in selective patients <6.0%.Please refer to [place] [employer] Diabetic care guidelines for further information. 47 Desirable <150 Borderline high 150-199 High 200-499 Very High >500 48 Desirable <200 Borderline high 200-239 High >239 49 Low <40 Desirable: 40-60 High: >60 50 Desirable <100 Near Optimal 100-129 Borderline high 130-159 High 160-189 Very High >189 51 The thyroglobulin testing method is an immunoenzymatic assay manufactured by [employer] and performed on the Tri[employer] DXI 800. The thyroglobulin antibody testing method is an electrochemiluminescence assay manufactured by [employer] and performed on the Modular or So System. Values obtained from different assay methods or kits may be different and cannot be used interchangeably. The results cannot be interpreted as absolute evidence for the presence or absence of malignant disease. Specimens with thyroglobulin concentrations greater than 250,000 ng/mL may give falsely lower results. Test Performed by: [place] [address] Secretary Board Of Commissioners: Hammad Washburn III, M.D. 52 -- REFERENCE VALUE -- <=33 Athyrotic individuals normally have hTg values <=2. 53 Test Performed by: [place] [address] Secretary Board Of Commissioners: Hannah Steiner, Ph.D. 54 No informative autoantibodies were detected in this evaluation. However, a negative result does not exclude neurological autoimmunity with or without associated neoplasia. 55 -- REFERENCE VALUE -- Negative at <1:240 Titers lower than 1:240 may be detectable by recombinant CRMP-5 western blot analysis. CRMP-5 western blot analysis will be done by request on stored serum. This supplemental testing is recommended in cases of chorea, vision loss, cranial neuropathy and myelopathy. Extramural clients Contact [facility] Inquiry at to add-on CRMP-5-IgG Western Blot, Serum. Intramural Clients, please call the Neuroimmunology Lab at [phone]. 56 Test Performed by: [place] [address] Secretary Board Of Commissioners: Hammad Washburn III, M.D. 57 Because ethnic data is not always readily available, this report includes an eGFR for both -Americans and non- Americans. The National Kidney Disease Education Program (NKDEP) does not endorse the use of the MDRD equation for patients that are not between the ages of 18 and 70, are , have extremes of body size, muscle mass, or nutritional status, or are non- or non-. According to the National Kidney Foundation, irrespective of diagnosis, the stage of the disease is based on the level of kidney function: Stage Description GFR(mL/min/1.73 m(2)) 1 Kidney damage with normal or decreased GFR 90 2 Kidney damage with mild decrease in GFR 60-89 3 Moderate decrease in GFR 30-59 4 Severe decrease in GFR 15-29 5 Kidney failure <15 (or dialysis) 58 Therapeutic target for the treatment of diabetes Mellitus patients is <7% HBA1C, and in selective patients <6.0%.Please refer to [place] [employer] Diabetic care guidelines for further information. 59 HDL Interpretation: Undesirable: High Risk: Less than 40 MG/DL Desirable: Low Risk: Greater than 60 MG/DL 60 LDL Interpretation: Low Risk Optimal Level: LDL Less than 100 MG/DL Near or Above Optimal: LDL 100-129 MG/DL Borderline High Risk: LDL 130-159 MG/DL High Risk: LDL 160-189 MG/DL Very High Risk: LDL Greater than 189 MG/DL 61 Because ethnic data is not always readily available, this report includes an eGFR for both -Americans and non- Americans. The National Kidney Disease Education Program (NKDEP) does not endorse the use of the MDRD equation for patients that are not between the ages of 18 and 70, are , have extremes of body size, muscle mass, or nutritional status, or are non- or non-. According to the National Kidney Foundation, irrespective of diagnosis, the stage of the disease is based on the level of kidney function: Stage Description GFR(mL/min/1.73 m(2)) 1 Kidney damage with normal or decreased GFR 90 2 Kidney damage with mild decrease in GFR 60-89 3 Moderate decrease in GFR 30-59 4 Severe decrease in GFR 15-29 5 Kidney failure <15 (or dialysis) 62 Anion gap measurement may be of limited value in the presence of any alkalosis, especially in a combined acid base disorder. . 63 Because ethnic data is not always readily available, this report includes an eGFR for both -Americans and non- Americans. The National Kidney Disease Education Program (NKDEP) does not endorse the use of the MDRD equation for patients that are not between the ages of 18 and 70, are , have extremes of body size, muscle mass, or nutritional status, or are non- or non-. According to the National Kidney Foundation, irrespective of diagnosis, the stage of the disease is based on the level of kidney function: Stage Description GFR(mL/min/1.73 m(2)) 1 Kidney damage with normal or decreased GFR 90 2 Kidney damage with mild decrease in GFR 60-89 3 Moderate decrease in GFR 30-59 4 Severe decrease in GFR 15-29 5 Kidney failure <15 (or dialysis) 64 Imm. NE 1 65 NORMAL ELECTROPHORETIC PATTERN. 66 Lymphopenia % 67 Recommended INR for Patients on Oral Anticoagulants Prophylaxis 2.0 - 3.0 Treatment of thrombosis 2.0 - 3.0 Prevention of embolism 2.0 - 3.0 Prevention of embolism from prosthetic heart valves 2.5 - 3.5 68 DIAGNOSIS,TREATMENT,AND THERAPY MUST BE BASED ON THE INR VALUE ALONE. 69 Please note: The following may produce a false positive D Dimer test: - Rheumatoid factor greater than 1400 IU/ml - Plasma hemoglobin greater than 0.5 gm/dl - Bilirubin greater than 18 mg/dl - Triglycerides greater than 1327 mg/dl - FDP greater than 10 ug/ml . 70 Anion gap measurement may be of limited value in the presence of any alkalosis, especially in a combined acid base disorder. . 71 A metabolite of Naproxen, O-desmethylnaproxen, has been shown to interfere with the Jendrassik-Billy method for measuring total bilirubin. Samples from patients who have taken Naproxen have shown spurious elevation in total bilirubin levels. 72 Because ethnic data is not always readily available, this report includes an eGFR for both -Americans and non- Americans. The National Kidney Disease Education Program (NKDEP) does not endorse the use of the MDRD equation for patients that are not between the ages of 18 and 70, are , have extremes of body size, muscle mass, or nutritional status, or are non- or non-. According to the National Kidney Foundation, irrespective of diagnosis, the stage of the disease is based on the level of kidney function: Stage Description GFR(mL/min/1.73 m(2)) 1 Kidney damage with normal or decreased GFR 90 2 Kidney damage with mild decrease in GFR 60-89 3 Moderate decrease in GFR 30-59 4 Severe decrease in GFR 15-29 5 Kidney failure <15 (or dialysis) 73 New Reference Range and Interpretation effective 04/06/2002 TnI (ng/ml) INTERPRETATION Less Than 0.06 ng/mL NOT SUPPORTIVE OF DIAGNOSIS OF ME 0.06 - 0.50 ng/ml INDETERMINATE: SUGGEST SERIAL STUDIES IF CLINICALLY INDICATED. Greater than 0.5 ng/mL CONSISTENT WITH DIAGNOSIS OF ME . 74 CHOLESTEROL INTERPRETATION: Desirable: Less than 200 MG/DL Borderline-High Risk: 200-239 MG/DL High-Risk: 240 MG/DL and over 75 HDL INTERPRETATION: Undesirable: High Risk: Less than 40 MG/DL Desirable: Low Risk: Greater than 60 MG/DL 76 LDL INTERPRETATION: Low Risk Optimal Level: LDL Less than 100 MG/DL Near or Above Optimal: LDL 100-129 MG/DL Borderline High Risk: LDL 130-159 MG/DL High Risk: LDL 160-189 MG/DL Very High Risk: LDL Greater than 189 MG/DL 77 THERAPEUTIC TARGET FOR THE TREATMENT OF DIABETES MELLITUS PATIENTS IS <7% HBA1C, AND IN SELECTIVE PATIENTS <6.0%. PLEASE REFER TO [place] [employer] DIABETIC CARE GUIDELINES FOR FURTHER INFORMATION. 78 Anion gap measurement may be of limited value in the presence of any alkalosis, especially in a combined acid base disorder. . 79 A metabolite of Naproxen, O-desmethylnaproxen, has been shown to interfere with the Jendrassik-[place] method for measuring total bilirubin. Samples from patients who have taken Naproxen have shown spurious elevation in total bilirubin levels. 80 Because ethnic data is not always readily available, this report includes an eGFR for both -Americans and non- Americans. The National Kidney Disease Education Program (NKDEP) does not endorse the use of the MDRD equation for patients that are not between the ages of 18 and 70, are , have extremes of body size, muscle mass, or nutritional status, or are non- or non-. According to the National Kidney Foundation, irrespective of diagnosis, the stage of the disease is based on the level of kidney function: Stage Description GFR(mL/min/1.73 m(2)) 1 Kidney damage with normal or decreased GFR 90 2 Kidney damage with mild decrease in GFR 60-89 3 Moderate decrease in GFR 30-59 4 Severe decrease in GFR 15-29 5 Kidney failure <15 (or dialysis) 81 THERAPEUTIC TARGET FOR THE TREATMENT OF DIABETES MELLITUS PATIENTS IS <7% HBA1C, AND IN SELECTIVE PATIENTS <6.0%. PLEASE REFER TO [place] [employer] DIABETIC CARE GUIDELINES FOR FURTHER INFORMATION. 82 CHOLESTEROL INTERPRETATION: Desirable: Less than 200 MG/DL Borderline-High Risk: 200-239 MG/DL High-Risk: 240 MG/DL and over 83 HDL INTERPRETATION: Undesirable: High Risk: Less than 40 MG/DL Desirable: Low Risk: Greater than 60 MG/DL 84 LDL INTERPRETATION: Low Risk Optimal Level: LDL Less than 100 MG/DL Near or Above Optimal: LDL 100-129 MG/DL Borderline High Risk: LDL 130-159 MG/DL High Risk: LDL 160-189 MG/DL Very High Risk: LDL Greater than 189 MG/DL 85 Anion gap measurement may be of limited value in the presence of any alkalosis, especially in a combined acid base disorder. . 86 Note change in reference range as of 02/22/08. The change was based on recommendations from the [place] [employer]. 87 A metabolite of Naproxen, O-desmethylnaproxen, has been shown to interfere with the Jendrassik-Billy method for measuring total bilirubin. Samples from patients who have taken Naproxen have shown spurious elevation in total bilirubin levels. 88 Because ethnic data is not always readily available, this report includes an eGFR for both -Americans and non- Americans. The National Kidney Disease Education Program (NKDEP) does not endorse the use of the MDRD equation for patients that are not between the ages of 18 and 70, are , have extremes of body size, muscle mass, or nutritional status, or are non- or non-. According to the National Kidney Foundation, irrespective of diagnosis, the stage of the disease is based on the level of kidney function: Stage Description GFR(mL/min/1.73 m(2)) 1 Kidney damage with normal or decreased GFR 90 2 Kidney damage with mild decrease in GFR 60-89 3 Moderate decrease in GFR 30-59 4 Severe decrease in GFR 15-29 5 Kidney failure <15 (or dialysis) Procedures Date CPT Code Description Status Comment 02/24/2018 63155 Removal Skin Tags Up To 15 Completed 02/24/2018 81840 Biopsy Skin Lesion Single Completed 04/21/2017 Diabetic Retinal Eye Exam Completed 02/11/2017 Colonoscopy Completed Lab: 02/11/17 - Surgical Pathology 02/11/2017 52227 Colonoscopy Flexible W/Biopsy Completed 02/11/2017 85800 Moderate Sedation Services; Completed Same Phys Intl 15 Mins; PT >=5 Years 10/08/2011 69148 EKG Tracing & Interpretation Completed 10/06/2011 42115 Left Heart Cath. Incl S/I Completed Coronaries, Angio S/I V Gram If Done 10/06/2011 73176 Cath PLMT&NJX L Ventriculog Img Completed S&I 10/06/2011 71042 Left Health Catheterization Completed W/Inj For Left Ventriculography,S&I 10/06/2011 15699 Color Flow Doppler/Interp & Completed Reprt 10/06/2011 95429 Pulse Completed Wave/Continuous-Interp.RPT 10/06/2011 89447 ECHO Transthorasic Realtime 2D Completed W Doppler & Color Flow Hosp 10/05/2011 34677 Treadmill Interp/Report Only Completed 10/05/2011 67602 Stress Test Supervsn W/Out I/R Completed 04/25/2009 Colonoscopy Completed 02/20/2009 63557 EKG Tracing & Interpretation Completed Encounters Type Date Location Provider CPT E/M Dx Office Visit 04/18/2018 [facility] Internal Medicine Tova Cuellar 53508 R53.83 2:00p - Anne Jacobsen G25.0 I10 Z23 Office Visit 02/24/2018 8:10a [facility] [place] [address] L82.0 D22.5 L72.8 L98.9 L91.8 L53.8 Z78.9 R20.8 Office Visit 02/03/2018 4:00p [facility] Internal Medicine Tova Cuellar 51039 E11Diana Rodríguez M.D. E78.5 G25.0 Office Visit 09/29/2017 11:20a [facility] Internal Medicine Tova Cuellar 92850 E11Diana Rodríguez M.D. I10 E78.5 K21.9 R21 Office Visit 06/23/2017 3:40p [facility] Internal Medicine Tova Cuellar 30227 Z00.00 - Anne Jacobsen E11.9 I10 G47.00 R21 K59.00 Z23 Office Visit 04/26/2017 2:00p [facility] Internal Tova Cuellar 00100 M25.562 Medicine Winsome Rodríguez M.D. Office Visit 04/01/2017 10:00a [facility] Internal Tova Cuellar 03714 E11.65 Medicine Winsome Rodríguez M.D. Z23 E11.9 Office Visit 02/15/2017 1:20p [facility] Internal Medicine Don Lindsey, 98638 E11.65 - Anne Jacobsen,FACP D12.6 Office Visit 02/08/2017 4:20p [facility] Internal Medicine Michelle Martini N.Roque 85941 J02.9 - Anne Office Visit 01/31/2017 2:20p [facility] Internal Medicine Tova Cuellar 88065 N48.5 - Anne Jacobsen E78.5 R73.01 Office Visit 01/25/2017 10:40a [facility] Internal Medicine Tova Cuellar M.D. 16917 R12 - Anne R63.5 R21 F41.9 Office Visit 10/25/2016 3:40p [facility] Internal Medicine Tova Cuellar 91366 M54.2 - Anne Jacobsen N40.1 M25.511 R63.5 Office Visit 09/29/2016 3:30p Neurosurgery Services Charu Justin PA-C 39002 M54.81 Of [facility] Office Visit 08/27/2016 3:20p [facility] Internal Medicine Tova Cuellar 78259 F41.9 - Anne Jacobsen J06.9 Office Visit 08/13/2016 4:20p [facility] Internal Medicine Tova Cuellar 88658 M54.12 - Anne Jacobsen F41.9 Office Visit 07/06/2016 3:20p [facility] Internal Medicine Tova Cuellar M.D. 65555 R51 - Anne F41.9 I10 B35.3 Office Visit 06/01/2016 2:20p [facility] Internal Medicine Tova Polo, 88533 F41.9 - [place] I10 K62.5 Office Visit 04/27/2016 1:00p [facility] Internal Medicine Tova Cotton, 63177 R73.01 - [place] E78.1 K62.5 Z23 Office Visit 10/30/2015 2:00p [facility] Internal Tova Polo 69477 L03.012 Medicine - [place] Z23 Office Visit 09/24/2015 11:40a [facility] Internal Medicine Michelle Martini N.Roque 19700 J01.00 - [place] H10.9 Office Visit 07/11/2015 9:00a [facility] Internal Medicine Tova Cotton, 03017 F41.9 - [place] I10 R73.01 Office Visit 06/02/2015 1:00p [facility] Internal Medicine Tovanoman Cuellar 60224 F41.9 - [place] Office Visit 04/18/2015 1:20p [facility] Internal Medicine Tova Polo 67927 F41.9 - [place] I10 M54.2 Z23 Office Visit 04/03/2015 10:30a [facility] Chaim Urias M.D. 95651 S93.621A CTim S93.611A Office Visit 02/07/2015 1:00p [facility] Internal Medicine Tovanoman Cuellar, 69314 300.00 - [place] 465.9 Office Visit 01/07/2015 3:40p [facility] Internal Medicine Tova Polo 11212 401.1 - [place] M.DDwayne 300.11 Office Visit 11/29/2014 11:20a [facility] Internal Medicine Tova Polo 26947 300.00 - [place] 726.32 Office Visit 10/22/2014 9:40a [facility] Internal Medicine Tovanoman Cuellar 81199 300.11 - [place] M.D. Office Visit 10/08/2014 1:20p [facility] Internal Medicine Tova Cuellar 09669 401.1 - [place] M.DDwayne 790.21 719.42 723.1 378.9 781.3 Office Visit 08/14/2014 8:30a [facility] Manuel Garcia, 48315 333.1 Services Of Motorcycle Tester M.D. 300.11 Office Visit 08/13/2014 3:20p [facility] Internal Medicine Tovanoman Cuellar, 43682 461.9 - [place] M.D. 401.1 790.21 Office Visit 07/09/2014 1:00p [facility] Internal Medicine Tovanoman Cuellar, 80828 401.1 - [place] M.D. 790.4 272.4 300.11 Office Visit 03/13/2014 10:40a [facility] Internal Medicine Tovanoman Cuellar 27515 333.1 - [place] M.D. 401.1 Office Visit 02/26/2014 11:45a [facility] Manuel Garcia, 36759 333.1 Services Of Motorcycle Tester M.D. 300.11 Office Visit 01/07/2014 11:40a [facility] Internal Medicine Tovanoman Cuellar 08048 333.1 - [place] M.D. 729.5 401.1 Office Visit 12/06/2013 11:40a [facility] Internal Medicine Tovanoman Cuellar 38574 333.1 - [place] M.D. 706.2 780.93 Office Visit 11/08/2013 3:40p [facility] Internal Medicine Tovanoman Cuellar 73983 333.1 - [place] M.D. 564.00 401.1 706.2 Office Visit 10/09/2013 9:30a [facility] Manuel Garcia, 52861 300.11 Services Of Motorcycle Tester M.D. Office Visit 10/02/2013 10:00a [facility] Internal Medicine Tova Cuellar, 79589 780.2 - [place] M.D. Office Visit 08/16/2013 11:00a [facility] Internal Medicine Tova Cuellar 05813 378.9 - [place] M.D. 401.1 272.4 465.9 Office Visit 08/14/2013 1:30p [facility] Manuel Garcia, 10752 300.11 Services Of Motorcycle Tester M.D. Office Visit 07/12/2013 9:40a [facility] Internal Medicine Tova Cuellar 27701 378.9 - [place] M.D. 333.1 401.1 Office Visit 06/22/2013 2:30p [facility] Manuel Garcia, 49556 300.11 Services Of Motorcycle Tester M.D. Office Visit 05/28/2013 4:00p [facility] Internal Medicine Tova Cuellar, 77191 378.9 - [place] M.D. 333.1 v04.81 Office Visit 05/22/2013 9:45a [facility] Manuel Garcia, 21168 300.11 Services Of Motorcycle Tester M.D. 300.21 Office Visit 04/03/2013 3:20p [facility] Internal Medicine Tova Cuellar, 44890 378.9 - [place] M.D. Office Visit 03/09/2013 8:40a [facility] Internal Medicine Tova Cuellar, 08331 378.9 - [place] M.D. Office Visit 03/09/2013 12:00p [facility] Manuel Garcia, 19236 781.3 Services Of Motorcycle Tester M.D. 379.50 333.1 Office Visit 02/21/2013 11:30a [facility] Manuel Garcia, 32823 333.1 Services Of Motorcycle Tester M.D. 781.3 378.9 Office Visit 02/15/2013 2:00p [facility] Internal Medicine Tova Cuellar, 97794 369.75 - [place] M.D. 300.00 Office Visit 02/01/2013 4:20p [facility] Internal Medicine Tova Cuellar, 73742 781.3 - [place] M.D. 575.0 Office Visit 01/26/2013 9:20a [facility] Internal Medicine Tova Cuellar, 33163 781.3 - [place] M.D. Office Visit 01/16/2013 11:00a [facility] [facility] Tova Cuellar 41889 789.06 - [place] M.D. 780.52 333.1 Office Visit 12/25/2012 4:40p [facility] Tova Cuellar 17094 789.06 - [place] M.D. 401.1 Office Visit 11/03/2012 11:40a [facility] Tova Cuellar 49703 401.1 - [place] M.D. 790.21 Office Visit 07/18/2012 8:40a [facility] Tova Cuellar 12724 401.1 - [place] M.D. 285.9 782.3 706.2 Office Visit 03/07/2012 1:20p [facility] Tova Polo, 07180 401.1 - [place] M.D. 477.9 Office Visit 11/25/2011 3:00p [facility] Tova Cuellar, 32552 401.1 - [place] M.D. Office Visit 10/26/2011 4:00p [facility] Tova Polo, 94544 V70.0 - [place] M.D. 401.1 272.4 285.9 309.29 Office Visit 10/08/2011 3:40p [facility] Rulataybeh S. Whit, 96096 272.4 M.D. 401.1 786.59 Office Visit 10/07/2011 2:00p [facility] Tova Polo, 95136 786.59 - [place] M.D. 272.4 401.1 Office Visit 10/06/2011 10:17a [facility] Qutaybeh S. Whit, 05917 794.31 M.D. 401.1 272.4 786.50 Office Visit 10/06/2011 1:22p [facility] Ede Jama, 16594 786.50 M.D. 786.09 424.0 425.9 401.1 Office Visit 09/29/2010 10:15a DO Not Use Michelle Lianet, 09854 466.0 [facility] N.[facility] Office Visit 09/28/2010 4:00p [facility] Alejandro Miller, 19193 722.52 Of [employer] M.D. 719.40 Office Visit 09/25/2010 9:30a DO Not Use [facility] Michelle Varn, 15560 724.2 N.P. Office Visit 09/17/2010 11:00a DO Not Use [facility] Michelle Varn, 05422 724.2 N.P. Office Visit 09/11/2010 10:45a DO Not Use [facility] Michelle Lianet, 07848 724.2 N.P. 728.85 Office Visit 09/01/2010 10:45a DO Not Use Michelle Varn, 89012 724.5 [facility] N.P. Office Visit 08/21/2010 3:45p DO Not Use Tova Cotton, 93318 530.81 [employer] [facility] M.D. 401.1 Office Visit 06/12/2010 3:30p DO Not Use Tova Cotton, 95449 401.1 [employer] [facility] M.D. 790.21 272.4 530.81 780.52 724.5 Office Visit 04/28/2010 4:00p DO Not Use Michelle Varn, 59118 726.32 [facility] N.P. 719.44 719.47 Office Visit 09/25/2009 2:45p DO Not Use RadYun nascimento, 06864 790.21 [employer] [facility] M.D. 272.4 Office Visit 08/11/2009 2:45p DO Not Use RadYun nascimento, 36823 786.2 [employer] [facility] M.D. 780.60 493.90 Office Visit 08/08/2009 2:00p DO Not Use Yun Kay, 16944 466.0 [employer] [facility] M.D. 493.90 079.99 Office Visit 04/16/2009 3:45p DO Not Use Michelle Martini, 28918 564.00 [facility] N.P. 788.41 Office Visit 02/20/2009 3:15p DO Not Use Yun Kay, 99580 V70.0 [employer] M.D. 578.1 790.21 272.4 Office Visit 01/07/2009 4:00p DO Not Use RadYun nascimento, 99088 272.4 [employer] [facility] M.D. 790.21 401.1 Office Visit 08/26/2008 4:30p DO Not Use Yun Kay, 58860 272.0 [employer] M.D. 790.21 781.0 Office Visit 07/22/2008 2:30p DO Not Use RadYun nascimento, 57743 790.21 [employer] [facility] M.D. 285.9 Office Visit 06/24/2008 3:00p DO Not Use RadYun nascimento, 14585 285.9 [employer] [facility] M.D. 401.1 272.4 Office Visit 01/04/2008 9:45a DO Not Use [employer] [facility] Yun Kay, 58494 462 M.D. 780.52 Office Visit 12/12/2007 2:15p DO Not Use RadYun nascimento, 38025 558.9 [employer] [facility] M.D. 578.1 Office Visit 12/05/2007 10:00a DO Not Use Yun Kay, 15410 558.9 [employer] [facility] M.D. 794.8 Office Visit 09/05/2007 1:00p DO Not Use uYn Kay, 93441 277.7 [employer] [facility] M.D. 272.4 Office Visit 03/27/2007 4:00p DO Not Use [employer] [facility] Michelle Martini, 02078 462 N.P. Office Visit 02/15/2007 3:00p DO Not Use [employer] [facility] Yun Kay, 89197 V06.1 M.D. 530.81 600.00 V70.0 Office Visit 12/14/2006 3:00p DO Not Use Yun Kay, 97165 272.4 [employer] [facility] M.D. 530.81 Office Visit 05/30/2006 2:30p DO Not Use Yun Kay, 82766 461.9 [employer] [facility] M.D. Office Visit 04/11/2006 10:30a DO Not Use Yun Kay, 23991 784.0 [employer] [facility] M.D. 780.52 Office Visit 03/18/2006 2:15p DO Not Use Yun Kay, 87744 780.79 [employer] [facility] M.D. 780.52 530.81 784.0 Office Visit 03/04/2006 4:15p DO Not Use Yun Kay, 65603 786.52 [employer] [facility] M.D. Office Visit 02/25/2006 2:45p DO Not Use Radha Cordon M.D., 13592 786.50 [facility] FACP 733.6 Plan of Care Future Appointment(s):06/09/2018 4:00 pm - Tova Cuellar M.D. at [facility] Internal Medicine - Rozjprovp44/21/2019 4:20 pm - Tova Cuellar M.D. at [facility] Internal Medicine - Vagvrvhwa61/06/2018 - Tova Cuellar M.D.G25.0 Essential tremorNew Medication:Gabapentin 100 mgComments:Try gabapentin for [id number] Essential (primary) hypertensionNew Medication:Losartan Potassium 50 mgComments:Increase the losartan from 25 to 50 mgFollow up:1 [id number] Other fatigueComments:Stop the montelukast and ZyrtecSee if symptoms improve off propranololI think the sleep apnea day time [id number] Obstructive sleep apnea (adult) (pediatric)Referral:[facility], Sleep Disord,Diag/ DctwzoR12.12 Poor urinary streamReferral:Agustín Bryson MD, Urology
--- OUTSIDE RECORDS SUMMARY | 2018-05-11 11:19 | XMS REPORT ---
:1965 External Reference #:[id number] Author Organization [facility] Address [address] [place] [address] [place] [address] Phone [phone] Care Team Providers Name Role Phone Tova Cuellar MD Primary Care Physician Unavailable Payers Type Date Identification Numbers Payment Provider Subscriber Commercial Effective: Policy Number: MITCHEL Alvarez 2012 [id number] PayID: [id number] [address] [address] [place] [address] Medigap Part B Effective: Policy Number: Bao Alvarez 2009 [id number] Ppo Expires: 2012 Group Name: Sourav Chauhan [id number] PayID: [id number] [place] [address] Problems Date Description Provider Status Onset: 06/21/2017 [...] Other Lives With Girlfriend Juli Alvarez Occupation [employer]ing [employer] Occupation 2014 Disabled Work Status Not Currently [...] Form Strength Qnty SIG Indications Ordering Provider Inderal LA 04/18 Active Caps ER 60mg 30cap 1 by G25.0 24HR s mouth Cotton, every day M.D. Cozaar 12/04 Active Tablets 25mg 30tab Take One I10 s Tablet By Cotton, Mouth M.D. Once Daily as Directed Ciclopirox 09/29 Active Cream 0.77% 90gm apply a R21 thin film Cotton, twice a M.D. day Docusate Sodium 06/23 Active Tablets 100mg 1 PO once K59.00 or twice Cotton, daily M.D. Metformin HCL ER 06/23 Active Tablets ER 500mg 60tab 2 by 24HR s mouth Cotton, every day M.D. Zolpidem Tartrate 02/07 Active Tablets 10mg 30tab take 1/2 s to 1 Cotton, tablet at M.D. bedtime as needed maximum daily dose=1 Cane 05/17 Active Misc 1unit For daily s use Cotton, M.D. Singulair 06/25 Active Tablets 10mg 30tab Take One Tova /2012 s Tablet By Cotton, Mouth M.D. Once Daily Xyzal 03/07 Active Tablets 5mg 30tab Take One J30.9 Tova /2012 s Tablet By Cotton, Mouth M.D. Once Daily Aspirin 03/05 Active Tablets 81mg 1 by Tova /2012 mouth Cotton, once M.D. daily Crestor 10/25 Active Tablets 10mg 30tab Take One Tova /2012 s Tablet By Cotton, Mouth M.D. Once Daily Multi Vitamin Active Tablets 1 po qd Unknown /0000 Latanoprost Active Solution 0.005% Unknown / Inderal LA 03/08 Hx Caps ER 120mg 30cap 1 PO qd G25.0 Tova 24HR s Cotton, - M.D. 04/18 Propranolol HCL 03/03 Hx Caps ER 80mg 30cap 1 by G25.0 Tova ER 24HR s mouth Cotton, - every day M.D. 03/08 Propranolol HCL 02/03 Hx Caps ER 60mg 30cap 1 by G25.0 Tova ER 24HR s mouth Cotton, - every day M.D. 03/03 Losartan 06/23 Hx Tablets 25mg 30tab 1 [...] twice Cotton, - daily for M.D. 10/25 Abilify 08/18 Hx Tablets 10mg F41.9 Tova Cotton, - M.D. 08/18 Aripiprazole 08/18 Hx Tablets 10mg 30tab Take 1/2 F41.9 s Tablet By Cotton, - Mouth AT M.D. 01/25 Bedtime Ranitidine HCL 07/06 Hx Tablets 150mg 30tab take one OTC s tablet by Cotton, - mouth M.D. [...] 3350NF 527gm one 17 gm Tova Glycol 3349 scoop in Cotton, - 8 oz M.D. 01/25 water daily Cephalexin 10/29 Hx Tablets 500mg 21tab [...] Hx Solution 0.3% 5ml 1 drop H10.9 Michelle every 4 Varn, N.P. - hours for 09/30 7 Venlafaxine HCL 07/11 Hx Tablets ER 225mg 30tab Take One F41.9 Tova ER 24HR s Tablet By Cotton, - Mouth M.D. 01/25 Daily Venlafaxine HCL 06/02 Hx Caps ER 150mg 30cap 1 by F4.9 24HR s mouth Cotton, - every day M.D. 07/11 at /2015 bedtime Venlafaxine HCL 04/18 Hx Caps ER [...] Tablets 10mg 120ta 2 by 333.1 Stefanie bs mouth Stackman, - twice a M.D. Levofloxacin 08/16 Hx Tablets 500mg 7tabs 1 po qd 465.9 for 7 Polo, - days M.D. 08/31 Hydrochlorothiazi 07/23 Hx Capsules 12.5mg 30cap Take One s Capsule Polo, - By Mouth M.D. 08/16 Once Daily Not taking 08/14/13 Atenolol 05/28 Hx Tablets 25mg 1 po qd 333.1 Polo, - M.D. 07/12 Losartan 05/01 Hx Tablets 100mg 30tab Take One s Tablet By Cotton, - Mouth M.D. 05/22 Once Daily Clonazepam 02/21 Hx Tablets 0.5mg 60tab 1 PO qam s Polo - M.DDwayne 01/07 Escitalopram 02/15 Hx Tablets 5mg 60tab 2 pills 300.00 s daily Polo - MDwayneDDwayne 03/02 Ambien 01/16 Hx Tablets 10mg 30tab 1 by s mouth Polo, - once M.D. 01/26 daily at bedtime as needed Atenolol 01/16 Hx Tablets 25mg 30tab 1 po qd 333.1 s Polo - M.DDwayne 01/26 Ambien 12/29 Hx Tablets 5mg 20tab 1 po s tablet at Polo, - bedtime M.Cassandra 01/16 prn Nexium 12/[address] 40mg 30cap 1 po qd 789.06 s Polo - M.DDwayne 02/15 Losartan 11/03 Hx Tablets 100mg 30tab 1 po qd 401.1 Tova Potassium s Polo - MDwayneDDwayne 12/25 Hydrochlorothiazi 11/03 Hx Capsules 12.5mg 30cap Take One 782.3 s Capsule Polo, - By Mouth M.DDwayne 07/12 Daily Hydrochlorothiazi 07/18 Hx Tablets 25mg 30tab 1 po qd 782.3 s Polo - M.DDwayne 11/03 Hydrochlorothiazi 07/12 Hx Tablets 12.5mg 30tab 1 by s mouth Polo, - once M.D. 11/03 Losartan 07/05 Hx Tablets 50mg 30tab Take One 401.1 Tova Potassium s Tablet By Polo, - Mouth M.D. 11/03 Daily Montelukast 03/07 Hx Tablets 10mg 30tab Take One Tova Sodium s Tablet By Cotton, - Mouth M.D. 06/25 Daily Lisinopril/Hydroc 12/26 Hx Tablets 10-12.5mg 30tab Take One 401.1 Tova hlorothiazide s Tablet By Polo, - Mouth M.DDwayne 07/05 Daily Lisinopril 10/25 Hx Tablets 5mg 60tab 2 po qd 401.1 s Polo, - M.DDwayne 12/26 Flexeril 09/28 Hx Tablets 5mg 90tab 2 hs and s 1 q am Delmar Miller - 07/18 Diclofenac Sodium 09/[address] 75mg 60tab 1 po bid s Delmar Miller - 10/06 Out Of Work 09/17 Hx From 09/17/10 Neris, - through M.D., FACP 09/2509/25/10 due to a medical condition Out Of Work 09/11 Hx Ambika will be Polo, - out of M.D. 09/17 work 09/11/10 through 09/18/10 due to a medical condition . Physical Therapy 09/08 Hx Polo, - M.D. 09/17 Physical Therapy 09/04 Hx PT for multiple Polo, - lumbar M.D. 09/17 disc herniatio ns Flexeril 09/01 Hx Tablets 10mg 30tab 1 by s mouth Cotton, - every 8 M.D. 09/28 hours needed Vicodin 09/01 Hx Tablets 5-500mg 30tab 1-2 by s mouth Cotton, - every 4-6 M.D. 10/06 hours needed for pain Famotidine 08/21 Hx Tablets 40mg 30tab 1 tablet 530.81 Tova /2011 s once Polo, - daily at M.D. 10/06 bedtime Pantoprazole 06/[address] 40mg 30tab Take 1 789.06 Tova s Tablet By Cotton, - Mouth M.D. 12/25 Daily Clarinex 01/12 Hx Tablets 5mg 30tab Take One 477.9 Tova s Tablet By Cotton, - Mouth M.D. 03/07 Once Daily Crestor 12/30 Hx Tablets 20mg 30tab Take One Tova s Tablet By Cotton, - Mouth M.D. [...] By - Mouth 01/07 Daily Venlafaxine HCL Hx Caps ER 75mg 21cap 1 by Unknown ER /0000 24HR s mouth - every day 10/09 Venlafaxine HCL 00 Hx Tablets ER 150mg 30tab 1 by Unknown ER /0000 24HR s mouth - every day 02/01 Trazodone HCL Hx Tablets 50mg 30tab 1/2-1 Unknown /0000 s tablet - once 12/06 daily at bedtime Venlafaxine HCL Hx Tablets ER 75mg 90tab 1 by Unknown ER /0000 24HR s mouth - every day 02/01 with 150mg. Olanzapine Hx 1 by Unknown /0000 mouth - every day 02/01 Venlafaxine HCL Hx Tablets ER 225mg 30tab take one Unknown ER /0000 24HR s tab by - mouth 12/14 each Abilify Hx Tablets 5mg 30tab 2 tabs by Unknown /0000 s mouth - every day 01/07 Valtrex Hx Tablets 1gm 1 by Unknown /0000 mouth - three 02/08 times day #20 Immunizations CPT Code Status Date Vaccine Reaction Lot # [id number] Given 04/18/2018 Influenza Virus Vaccine, [id number] Quadrivalent, Split, Preservative Free [id number] Given 06/23/2017 Pneumonia Vaccine [id number] Given 04/01/2017 Influenza Virus Vaccine, No immedidate [id number] Quadrivalent, Split, reaction..jh Preservative Free 03962 Given 04/27/2016 Influenza Virus Vaccine, no reaction noted ... [id number] Quadrivalent, Split Virus, Im Use 93577 Given 10/30/2015 Tetanus And Diptheria (Td) [id number] For Adult Use Preservative Free 47713 Given 04/18/2015 Influenza Virus Vaccine, [id number] Quadrivalent, Split, Preservative Free 21233 Given 05/28/2013 Flu Vaccine Split Virus [id number] Preservative Free For Indiv 3Yr Older 02146 Given 02/15/2007 Tdap - Tetanus/Diptheria/Acellula r Pertussis Vital Signs Date Vital Result Comment 04/18/2018 Height 72 inches 6'0" Weight 242.00 [...] Color Yellow Urine Appearance Clear Urine Specific Walsh 1.008 Low 1.010-1.030 Urine pH 5.0 5-9 [...] in selective patients <6.0%. Please refer to [place] [employer] diabetic care guidelines for further [...] in selective patients <6.0%. Please refer to [place] [employer] diabetic care guidelines for further information. 10 Normal Range 180 to 914 Indeterminate Range 145 to 180 Deficient Range <145 11 Unable to calculate due to low microalbumin 12 [id number] SEE RESULT BELOW Name: AMBIKA TIMMONS : [address]: Heather George MD Acct: [id number] Unit: [id number] AGE: 52 Location: [facility] Re02/11/17 SEX: M Status: DEP REF SPEC: [id number] OCTAVIO: 02/11/17- SUBM DR: Heather George MD REQ: [id number] RECD: 02/11/17-1143 STATUS: ELISA LIAO DR: Tova Cuellar MD _ ORDERED: LEVEL 4/2 COMMENTS: [id number] FINAL DIAGNOSIS 1. Colon, transverse, biopsy: -- [...] performed at Main Lab DEPARTMENT OF PATHOLOGY, [address] [place] [address] Travis Null M.D. Director [facility] # [id number] 14 SEE RESULT BELOW Name: AMBIKA TIMMONS JR : [address]: Michelle Martini NP Acct: [id number] Unit: [id number] AGE: 52 Location: [facility] Re02/08/17 SEX: M Status: REG REF SPEC: [id number] OCTAVIO: 02/08/17-[address]: Michelle aMrtini NP REQ: [id number] RECD: 02/08/17 STATUS: COMP _ SOURCE: THROAT SPDESC: ORDERED: Throat Culture COMMENTS: [id number] Procedure Result Reported Site Throat Culture Final 02/10/17- 08 ML Organism 1 NORMAL CLIFF Quantity 2+ * ML - MAIN LAB ([facility]) . END OF REPORT * ML=Testing performed at Main Lab DEPARTMENT OF PATHOLOGY, [address] [place] [address] Travis Null M.D. Director [facility] # [id number] 15 Desirable <150 Borderline high 150-199 High [...] and in selective patients <6.0%.Please refer to [place] [employer] Diabetic care guidelines for further [...] Food and Drug Administration. Test Performed by: [facility] [address] [place] [address] 27 Desirable <150 Borderline high 150-199 High [...] and in selective patients <6.0%.Please refer to [place] [employer] Diabetic care guidelines for further [...] and in selective patients <6.0%.Please refer to [place] [employer] Diabetic care guidelines for further [...] 0.03 ng/mL Not supportive of diagnosis of MA 0.03 - 0.50 ng/mL Indeterminate: suggest serial studies if clinically indicated. Greater than 0.5 ng/mL Consistent with diagnosis of MA 43 Acute inflammation: >10.00 44 Because ethnic [...] and in selective patients <6.0%.Please refer to [place] [employer] Diabetic care guidelines for further information. 47 Desirable <150 Borderline high 150-199 High 200-499 Very High >500 48 Desirable <200 Borderline high 200-239 High >239 49 Low <40 Desirable: 40-60 High: >60 50 Desirable <100 Near Optimal 100-129 Borderline high 130-159 High 160-189 Very High >189 51 The thyroglobulin testing method is an immunoenzymatic assay manufactured by [employer] and performed on the Radico DXI 800. The thyroglobulin antibody testing method [...] give falsely lower results. Test Performed by: [address] [address] Firewall Administrator: Hammad Washburn III, M.D. 52 -- REFERENCE VALUE -- <=33 Athyrotic individuals normally have hTg values <=2. 53 Test Performed by: [place] [address] Firewall Administrator: Hannah Steiner, Ph.D. 54 No informative autoantibodies [...] cranial neuropathy and myelopathy. Extramural clients Contact [facility] Inquiry at to add-on CRMP-[id number] Western Blot, Serum. Intramural Clients, please call the Neuroimmunology Lab at [phone]. 56 Test Performed by: [address] [address] Firewall Administrator: Hammad Washburn III, M.D. 57 Because ethnic [...] and in selective patients <6.0%.Please refer to [place] [employer] Diabetic care guidelines for further [...] 0.06 ng/mL NOT SUPPORTIVE OF DIAGNOSIS OF MA 0.06 - 0.50 ng/ml INDETERMINATE: SUGGEST SERIAL STUDIES IF CLINICALLY INDICATED. Greater than 0.5 ng/mL CONSISTENT WITH DIAGNOSIS OF MA . 74 CHOLESTEROL INTERPRETATION: Desirable: Less than [...] IN SELECTIVE PATIENTS <6.0%. PLEASE REFER TO [place] [employer] DIABETIC CARE GUIDELINES FOR FURTHER INFORMATION. 78 Anion gap measurement may be of limited value in the presence of any alkalosis, especially in a combined acid base disorder. . 79 A metabolite of Naproxen, O-desmethylnaproxen, has been shown to interfere with the [place]rass[place] method for measuring total bilirubin. Samples from [...] IN SELECTIVE PATIENTS <6.0%. PLEASE REFER TO [employer] DIABETIC CARE GUIDELINES FOR FURTHER [...] change was based on recommendations from the [place] [employer]. 87 A metabolite of Naproxen, O-desmethylnaproxen, has been shown to interfere with the [place] method for measuring total bilirubin. Samples from [...] Date CPT Code Description Status Comment 02/24/2018 13165 Removal Skin Tags Up To 15 Completed 02/24/2018 67695 Biopsy Skin Lesion Single Completed 04/21/2017 Diabetic Retinal Eye Exam Completed 02/11/2017 Colonoscopy Completed Lab: 02/11/17 - Surgical Pathology 02/11/2017 00050 Colonoscopy Flexible W/Biopsy Completed 02/11/2017 97832 Moderate Sedation Services; Completed Same Phys Intl 15 Mins; PT >=5 Years 10/08/2011 33402 EKG Tracing & Interpretation Completed 10/06/2011 13450 Left Heart Cath. Incl S/I Completed Coronaries, Angio S/I V Gram If Done 10/06/2011 57518 Cath PLMT&NJX L Ventriculog Img Completed S&I 10/06/2011 70467 Left Health Catheterization Completed W/Inj For Left Ventriculography,S&I 10/06/2011 49592 Color Flow Doppler/Interp & Completed Reprt 10/06/2011 40224 Pulse Completed Wave/Continuous-Interp.RPT 10/06/2011 49861 ECHO Transthorasic Realtime 2D Completed W Doppler & Color Flow Hosp 10/05/2011 58417 Treadmill Interp/Report Only Completed 10/05/2011 33515 Stress Test Supervsn W/Out I/R Completed 04/25/2009 Colonoscopy Completed 02/20/2009 03100 EKG Tracing & Interpretation Completed Encounters Type Date Location Provider CPT E/M Dx Office Visit 02/24/2018 8:10a [facility] [place] [address] L82.0 D22.5 L72.8 L98.9 L91.8 L53.8 Z78.9 R20.8 Office Visit 02/03/2018 4:00p [facility] Internal Medicine Tova Cuellar 59325 E11.9 Winsome Rodríguez M.D. E78.5 G25.0 Office Visit 09/29/2017 11:20a [facility] Internal Medicine Tova Cuellar 92479 E11.9 - Anne Jacobsen I10 E78.5 K21.9 R21 Office Visit 06/23/2017 3:40p [facility] Internal Medicine Toav Cuellar 41749 Z00.00 - Anne Jacobsen E11.9 I10 G47.00 R21 K59.00 Z23 Office Visit 04/26/2017 2:00p [facility] Internal Tova Cuellar 84855 M25.562 Carson Rodríguez M.D. Office Visit 04/01/2017 10:00a [facility] Internal Tova Cuellar 39387 E11.65 Carson Rodríguez M.D. Z23 E11.9 Office Visit 02/15/2017 1:20p [facility] Internal Medicine Don Lindsey, 39685 E11.65 Winsome Rodríguez M.D.,FACP D12.6 Office Visit 02/08/2017 4:20p [facility] Internal Medicine Michelle Martini, N.P. 61469 J02.9 - [place] Office Visit 01/31/2017 2:20p [facility] Internal Medicine Tova Cuellar 01527 N48.5 - Anne Jacobsen E78.5 R73.01 Office Visit 01/25/2017 10:40a [facility] Internal Medicine Tova Cuellar M.D. 06298 R12 - [place] R63.5 R21 F41.9 Office Visit 10/25/2016 3:40p [facility] Internal Medicine Tova Cuellar 61495 M54.2 - Anne Jacobsen N40.1 M25.511 R63.5 Office Visit 09/29/2016 3:30p Neurosurgery Services Charu Justin PA-C 37569 M54.81 Of [facility] Office Visit 08/27/2016 3:20p [facility] Internal Medicine Tova Cuellar 32255 F41.9 - Anne Jacobsen J06.9 Office Visit 08/13/2016 4:20p [facility] Internal Medicine Tova Cuellar 18080 M54.12 - Anne Jacobsen F41.9 Office Visit 07/06/2016 3:20p [facility] Internal Medicine Tova Cuellar M.D. 80685 R51 - [place] F41.9 I10 B35.3 Office Visit 06/01/2016 2:20p [facility] Internal Medicine Tova Cuellar 12045 F41.9 - Anne Jacobsen I10 K62.5 Office Visit 04/27/2016 1:00p [facility] Internal Medicine Tova Cuellar 08596 R73.01 - Anne Jacobsen E78.1 K62.5 Z23 Office Visit 10/30/2015 2:00p [facility] Internal Tova Cuellar 67952 L03.012 Medicine - Anne Jacobsen Z23 Office Visit 09/24/2015 11:40a [facility] Internal Medicine Michelle Martini, N.P. 28045 J01.00 - [place] H10.9 Office Visit 07/11/2015 9:00a [facility] Internal Medicine Tova Cuellar 51813 F41.9 - [place] M.Cassandra I10 R73.01 Office Visit 06/02/2015 1:00p [facility] Internal Medicine Tovanoman Cuellar, 05737 F41.9 - [place] M.D. Office Visit 04/18/2015 1:20p [facility] Internal Medicine Tovanoman Cuellar, 16382 F41.9 - [place] M.D. I10 M54.2 Z23 Office Visit 04/03/2015 10:30a [facility] Services Of Chaim Urias M.D. 76775 S93.621A Annie S93.611A Office Visit 02/07/2015 1:00p [facility] Internal Medicine Tova Cuellar 13885 300.00 - [place] M.DDwayne 465.9 Office Visit 01/07/2015 3:40p [facility] Internal Medicine Tova Cuellar 19556 401.1 - [place] M.D. 300.11 Office Visit 11/29/2014 11:20a [facility] Internal Medicine Tova Cuellar 38388 300.00 - [place] M.DDwayne 726.32 Office Visit 10/22/2014 9:40a [facility] Internal Medicine Tova Cuellar 32891 300.11 - [place] M.D. Office Visit 10/08/2014 1:20p [facility] Internal Medicine Tova Cuellar 73090 401.1 - [place] M.D. 790.21 719.42 723.1 378.9 781.3 Office Visit 08/14/2014 8:30a [facility] Manuel Garcia, 67795 333.1 Services Of Josh Child.DDwayne 300.11 Office Visit 08/13/2014 3:20p [facility] Internal Medicine Tova Cuellar 97385 461.9 - [place] M.DDwayne 401.1 790.21 Office Visit 07/09/2014 1:00p [facility] Internal Medicine Tova Cuellar 49485 401.1 - [place] M.D. 790.4 272.4 300.11 Office Visit 03/13/2014 10:40a [facility] Internal Medicine Tova Cuellar 01696 333.1 - [place] M.DDwayne 401.1 Office Visit 02/26/2014 11:45a [facility] Manuel Garcia 39775 333.1 Services Of Pediatric Physical Therapist M.D. 300.11 Office Visit 01/07/2014 11:40a [facility] Internal Medicine Tovanoman Cuellar 16637 333.1 - [place] M.D. 729.5 401.1 Office Visit 12/06/2013 11:40a [facility] Internal Medicine Tovanoman Cuellar 49630 333.1 - [place] M.D. 706.2 780.93 Office Visit 11/08/2013 3:40p [facility] Internal Medicine Tova Polo 56505 333.1 - [place] M.D. 564.00 401.1 706.2 Office Visit 10/09/2013 9:30a [facility] Manuel Garcia, 48503 300.11 Services Of Pediatric Physical Therapist M.D. Office Visit 10/02/2013 10:00a [facility] Internal Medicine Tova Cuellar 77637 780.2 - [place] M.D. Office Visit 08/16/2013 11:00a [facility] Internal Medicine Tova Cuellar 78012 378.9 - [place] M.D. 401.1 272.4 465.9 Office Visit 08/14/2013 1:30p [facility] Manuel Garcia, 29329 300.11 Services Of Pediatric Physical Therapist M.D. Office Visit 07/12/2013 9:40a [facility] Internal Medicine Tova Cuellar 05194 378.9 - [place] M.D. 333.1 401.1 Office Visit 06/22/2013 2:30p [facility] Manuel Garcia, 73505 300.11 Services Of Pediatric Physical Therapist M.D. Office Visit 05/28/2013 4:00p [facility] Internal Medicine Tova Cuellar 35073 378.9 - [place] M.D. 333.1 v04.81 Office Visit 05/22/2013 9:45a [facility] Manuel Garcia 83370 300.11 Services Of Pediatric Physical Therapist M.D. 300.21 Office Visit 04/03/2013 3:20p [facility] Internal Medicine Tova Cuellar 72623 378.9 - [place] M.D. Office Visit 03/09/2013 8:40a [facility] Internal Medicine Tova Cuellar 05968 378.9 - [place] M.D. Office Visit 03/09/2013 12:00p [facility] Manuel Garcia, 50586 781.3 Services Of Pediatric Physical Therapist M.D. 379.50 333.1 Office Visit 02/21/2013 11:30a [facility] Manuel Garcia, 19537 333.1 Services Of Pediatric Physical Therapist M.D. 781.3 378.9 Office Visit 02/15/2013 2:00p [facility] Internal Medicine Tova Cuellar, 63285 369.75 - [place] M.D. 300.00 Office Visit 02/01/2013 4:20p [facility] Internal Medicine Tova Polo, 37358 781.3 - [place] M.D. 575.0 Office Visit 01/26/2013 9:20a [facility] Internal Medicine Tovanoman Cuellar, 04807 781.3 - [place] M.D. Office Visit 01/16/2013 11:00a [facility] Internal Medicine Tova Cuellar, 21932 789.06 - [place] M.D. 780.52 333.1 Office Visit 12/25/2012 4:40p [facility] Internal Medicine Tova Polo, 85892 789.06 - [place] M.D. 401.1 Office Visit 11/03/2012 11:40a [facility] Internal Medicine Tova Polo, 69293 401.1 - [place] M.D. 790.21 Office Visit 07/18/2012 8:40a [facility] Internal Medicine Tova Cuellar, 47370 401.1 - [place] M.D. 285.9 782.3 706.2 Office Visit 03/07/2012 1:20p [facility] Internal Medicine Tova Polo, 23645 401.1 - [place] M.D. 477.9 Office Visit 11/25/2011 3:00p [facility] Internal Medicine Tova Polo, 66120 401.1 - [place] M.D. Office Visit 10/26/2011 4:00p [facility] Internal Medicine Tova Cuellar, 48330 V70.0 - [place] M.D. 401.1 272.4 285.9 309.29 Office Visit 10/08/2011 3:40p [facility] Juan José Sherman, 76793 272.4 M.D. 401.1 786.59 Office Visit 10/07/2011 2:00p [facility] Internal Medicine Tova Cuellar, 00066 786.59 - [place] M.D. 272.4 401.1 Office Visit 10/06/2011 10:17a [facility] Juan José Sherman, 51256 794.31 M.D. 401.1 272.4 786.50 Office Visit 10/06/2011 1:22p [facility] Ede SantosDwayne Killiancorina, 27782 786.50 M.D. 786.09 424.0 425.9 401.1 Office Visit 09/29/2010 10:15a DO Not Use Michelle Varn, 12504 466.0 Pediatric Physical Therapist[facility] N.P. Office Visit 09/28/2010 4:00p Rheumatology Services Alejandro Miller, 54468 722.52 Of Pediatric Physical Therapist M.D. 719.40 Office Visit 09/25/2010 9:30a DO Not Use [facility] Michelle Varn, 44297 724.2 N.P. Office Visit 09/17/2010 11:00a DO Not Use [facility] Michelle Varn, 16836 724.2 N.P. Office Visit 09/11/2010 10:45a DO Not Use [facility] Michelle Varn, 76619 724.2 N.P. 728.85 Office Visit 09/01/2010 10:45a DO Not Use Michelle Varn, 15445 724.5 [facility] N.P. Office Visit 08/21/2010 3:45p DO Not Use Tova Cotton, 53125 530.81 [facility] M.D. 401.1 Office Visit 06/12/2010 3:30p DO Not Use Tova Cotton, 30282 401.1 [facility] M.D. 790.21 272.4 530.81 780.52 724.5 Office Visit 04/28/2010 4:00p DO Not Use Michelle Varn, 46280 726.32 [facility] N.P. 719.44 719.47 Office Visit 09/25/2009 2:45p DO Not Use Yun Kay, 35136 790.21 [facility] M.D. 272.4 Office Visit 08/11/2009 2:45p DO Not Use RadYun nascimento, 29878 786.2 [facility] M.D. 780.60 493.90 Office Visit 08/08/2009 2:00p DO Not Use RadYun nascimento, 29421 466.0 [facility] M.D. 493.90 079.99 Office Visit 04/16/2009 3:45p DO Not Use Michelle Martini, 73023 564.00 [facility] N.P. 788.41 Office Visit 02/20/2009 3:15p DO Not Use Yun Kay, 12511 V70.0 [facility] M.D. 578.1 790.21 272.4 Office Visit 01/07/2009 4:00p DO Not Use Yun Kay, 15830 272.4 [facility] M.D. 790.21 401.1 Office Visit 08/26/2008 4:30p DO Not Use RadYun nascimento, 68448 272.0 [facility] M.D. 790.21 781.0 Office Visit 07/22/2008 2:30p DO Not Use Yun Kay, 92475 790.21 [facility] M.D. 285.9 Office Visit 06/24/2008 3:00p DO Not Use Yun Kay, 91579 285.9 [facility] M.D. 401.1 272.4 Office Visit 01/04/2008 9:45a DO Not Use [facility] Yun Kay, [id number] 462 M.D. 780.52 Office Visit 12/12/2007 2:15p DO Not Use Yun Kay, 34064 558.9 [facility] M.D. 578.1 Office Visit 12/05/2007 10:00a DO Not Use Yun Kay, 35788 558.9 [facility] M.D. 794.8 Office Visit 09/05/2007 1:00p DO Not Use Yun Kay, 23491 277.7 [facility] M.D. 272.4 Office Visit 03/27/2007 4:00p DO Not Use [facility] Michelle Martini, 92789 462 N.P. Office Visit 02/15/2007 3:00p DO Not Use [facility] Yun Kay, 48393 V06.1 M.D. 530.81 600.00 V70.0 Office Visit 12/14/2006 3:00p DO Not Use Yun Kay, 44762 272.4 [facility] M.D. 530.81 Office Visit 05/30/2006 2:30p DO Not Use Yun Kay, 10969 461.9 [facility] M.D. Office Visit 04/11/2006 10:30a DO Not Use Yun Kay, 38260 784.0 [facility] M.D. 780.52 Office Visit 03/18/2006 2:15p DO Not Use Yun Kay, 68526 780.79 [facility] M.D. 780.52 530.81 784.0 Office Visit 03/04/2006 4:15p DO Not Use Yun Kay, 38263 786.52 [facility] M.D. Office Visit 02/25/2006 2:45p DO Not Use Radha Cordon M.D., 30723 786.50 [facility] FACP 733.6 Plan of Care Future Appointment(s):05/09/2018 2:00 pm - Tova Cuellar M.D. at [facility]07/24/2018 4:20 pm - Tova Cuellar M.D. at [facility] [place]04/18/2018 - Tova Cuellar M.D.R53.83 Other fatigueComments:Daytime sleepiness could be from the propranolol. Could also be from sleep apnea. Please do not takeAmbien - makes sleep apnea worse Reduce the propranololFollow up:3-4 [id number] Essential tremorNew Medication: Inderal LA 60 mgComments:Take the Inderal 60 mg for 2 weeks then stopSee what happens with the [id number] Essential (primary) hypertensionComments:Your blood pressure is fine. Continue the Cozaar (losartan)
[2018-05-11] MEDS ORDERED: NS 0.9% 1000 ML* 1,000 ML IV ONE (11:39)
[2018-05-11] MEDS ORDERED: Nitroglycerin TAB 0.4 MG* 0.4 MG TAB SL ONE (11:40)
[2018-05-11] MEDS ORDERED: Aspirin 81 mg CHEW TAB* 81 MG TAB.CHEW PO ONE (11:40)
[2018-05-11] MEDS ORDERED: Dextrose 50% Syringe 50 ML* 25 GM/50 ML SYRINGE IV PUSH PRN (13:59)
[2018-05-11] MEDS: Insulin LISPRO* 1 UNITS UNIT SUBCUT SCH ×2 (18:02→21:21)
--- NOTE | 2018-05-11 20:46 | HP ---
CC: Dr. Tova Cuellar * HISTORY AND PHYSICAL: DATE OF ADMISSION: 05/11/18 PROVIDER: Hetal Hernandez NP PRIMARY CARE PHYSICIAN: Dr. Tova Cuellar. ATTENDING PHYSICIAN: Dr. Judy Ribeiro * (dictated by Hetal Hernandez NP). CHIEF COMPLAINT: Chest pain/pressure and shortness of breath. HISTORY OF PRESENT ILLNESS: The patient is a 53-year-old male with a past medical history of diabetes, hypertension, hyperlipidemia, and essential tremor , who presented to the ED today with intermittent 2/10 chest pressure. The patient reports that the chest pressure/squeezing sensation came on abruptly this morning around 8:45 a.m. while he was picking up toys. He suddenly felt like it was hard for him to take a full breath in accompanied by lightheadedness and dizziness as well as diarrhea. He describes the chest pressure as midsternal and not radiating anywhere. It is present at rest as well as with exertion. Of note, the patient recently stopped taking propranolol , which he had been taking for about 15 years for his essential tremor. He was working with his primary care provider to address this issue. She initially increased his doses of propranolol up to 120 mg and when it still was not working, she cut the dose to 60 mg for 2 weeks to taper him off and then discontinue. He just stopped taking the medication about 1 week ago. Since he has had this medication change, he has had trouble sleeping because he has palpitations at night and feels like his heart is racing, but until now it has not been accompanied by any chest pressure or shortness of breath. In the ED, the patient had an initial troponin, which was negative. He also had an EKG that showed normal sinus rhythm. There was some concern for some slight T-wave inversion in lead III; however, no significant ST elevations are present. The patient did receive aspirin in the ED and at the time of my exam, his chest pressure was 2/10 and has not gotten any worse. He did endorse headache still and mild shortness of breath; however, he is satting well on room air and did not display increased work of breathing or accessory muscle use. He denied any recent illness or cough. He denied nausea, vomiting, abdominal pain, and dysuria. The hospitalist team was asked to admit this patient for further evaluation of his chest pain and to rule out an IA. PAST MEDICAL HISTORY: Diabetes, hypertension, hyperlipidemia, and essential tremor. PAST SURGICAL HISTORY: Cholecystectomy, knee arthroscopy, cyst removed from groin, and nasal surgery. HOME MEDICATIONS: 1. Latanoprost 0.005% one drop daily in the eyes. 2. Crestor 10 mg p.o. daily. 3. Multivitamin 1 tab p.o. daily. 4. Aspirin 81 mg p.o. daily. 5. Metformin 1000 mg p.o. daily. 6. Ciclodan 0.77% topical b.i.d. 7. Neurontin 100 mg p.o. t.i.d. This is new medication for this patient and he has only taken 1 dose last night. 8. Losartan 50 mg p.o. daily. ALLERGIES: LISINOPRIL, reaction of sweating. FAMILY HISTORY: The patient endorses a family history of heart disease. His grandfather had an IA. His mother has hypertension and hyperlipidemia. The patient does not have a family history of diabetes. The patient's father did have cancer. SOCIAL HISTORY: The patient does not smoke cigarettes and has never smoked cigarettes; however, he was exposed to lots of second-hand smoke as a child. The patient denies alcohol use or drug use. The patient likes to be full code and the patient's medical decision maker is Juli Alvarez. PHYSICAL EXAMINATION GENERAL APPEARANCE: The patient is alert, pleasant, appears to be in no acute distress. VITAL SIGNS: Temperature 98.3, heart rate 70s to 80s, blood pressure 140/85, respiratory rate 16, pulse ox 98% on room air. HEENT: Normocephalic, atraumatic. Pupils are equal, round, and reactive to light and accommodation. Extraocular movements are intact. NECK: Supple. No adenopathy noted. No JVD appreciated. RESPIRATORY: No accessory muscle use and lungs are clear to auscultation. Normal work of breathing. CARDIAC: Regular rate and rhythm. S1 and S2 present. There are no murmurs, rubs, or gallops heard. ABDOMEN: Soft, nontender, nondistended. Bowel sounds x4. EXTREMITIES: No lower extremity edema. DP and PT pulses are 2+ and symmetric. The patient does exhibit an essential tremor in his upper extremities. MUSCULOSKELETAL: There is no clubbing or cyanosis noted. The patient exhibited 5/5 strength in all 4 extremities. NEURO: The patient is alert and oriented x3. No focal deficits noted. PSYCH: The patient is calm and cooperative. SKIN: There are no rashes or abnormalities seen. DIAGNOSTIC STUDIES/LAB DATA: White blood cell count of 4.4, RBC 4.63, hemoglobin 13.6, hematocrit 39, MCV 85, MCH 29, MCHC 35, RDW 13, platelet count 200, MPV 7.6, neutrophil percent 62.7, lymph percent 21.9, mono percent 10.6, eosinophil percent 4.2, baso percent 0.6. ESR pending. D-dimer less than 200. Sodium 140, potassium 3.9, chloride 107, carbon dioxide 26, anion gap 7, BUN 17, creatinine 0.88, glucose 181, lactic acid 2.2, calcium 9.1. Total bilirubin 0.40, AST 23, ALT 33, alk phos 66. Troponin 0.0 at 10:47 a.m. and 0.0 at 13:03. C-reactive protein 1.36, total protein 7.1, albumin 4.5, globulin 2.6, albumin-globulin ratio 1.7. Chest x-ray with no evidence of acute cardiopulmonary disease. EKG x2 with normal sinus rhythm, rates in the 80s initially and 60s upon repeat , no evidence of ischemia or infarction. ASSESSMENT: The patient is a 53-year-old male with a past medical history significant for diabetes, hypertension, who recently discontinued propranolol, who presented to the ED with substernal chest pressure and mild shortness of breath and will be admitted to hospitalist service for further workup of his chest pain and to rule out myocardial infarction/acute coronary syndrome. PLAN: 1. Chest pain. Differentials include ACS versus beta-dru withdrawal. It is possible that stopping the propranolol did reveal an underlying ischemic process, PE likely as the patient did have a negative D-dimer. The patient's initial 2 troponins were negative and EKG without any overt ST elevation x2, there was some possible slight T-wave inversion in lead III; however, this appears to be an isolated finding. We will continue to trend troponin and EKG for one more set. The patient will be monitored on telemetry. He received aspirin in the ED and we will continue his daily 81 mg of aspirin. The patient will be n.p.o. after midnight for a nuclear exercise stress test tomorrow morning. The patient denied any recent illness and did not have diffuse ST elevation on EKG. CRP was within normal limits and ESR is pending, so pericarditis is low in the differential at this point. 2. Hypertension. The patient has been normotensive in the ED. Latest blood pressure 140/85. We will continue his home losartan at 50 mg daily. 3. Diabetes. I am holding the patient's metformin in case he requires contrast for cath or other procedure. I will start him on fingersticks and sliding scale lispro a.c., h.s. I will also order hemoglobin A1c to evaluate his overall glucose control. 4. Fluids, electrolytes, and nutrition. The patient's electrolytes were within normal limits; however, he did have a lactic acid of 2.2 and I will recheck this tomorrow. 5. Diet. The patient will be on heart-healthy diet and then n.p.o. after midnight for his stress test tomorrow. 6. DVT prophylaxis. The patient is low risk and is ambulatory. 7. Code status. Full. 8. Disposition. Observation. Anticipate discharge to home when medically stable. HETAL HERNANDEZ, JACQUELYN [id number]/[facility] #: [id number] MILY
[2018-05-12] MEDS: Insulin LISPRO* 1 UNITS UNIT SUBCUT SCH ×2 (08:54→11:56)
[2018-05-12] MEDS ORDERED: Latanoprost 0.005%* 2.5 ml BTL RIGHT EYE SCH (09:00)
[2018-05-12] MEDS ORDERED: Losartan TAB* 25 MG PO SCH (09:00)
[2018-05-12] MEDS ORDERED: Aspirin EC TAB* 81 MG TAB.EC PO SCH (09:00)
[2018-05-12 15:33] VITALS: BP 121/73
--- NOTE | 2018-05-13 07:33 | DS ---
AMENDED REPORT NOW INCLUDES COSIGNER DESIGNATION CC: Dr. Tova Cuellar * DISCHARGE SUMMARY: DATE OF ADMISSION: 05/11/18 DATE OF DISCHARGE: 05/12/18 PRIMARY CARE PROVIDER: Dr. Tova Cuellar. ATTENDING PHYSICIAN: Dr. Christopher Carballo * (dictated by Beata Olsen NP) PRIMARY DIAGNOSES: 1. Beta-dru withdrawal. 2. Hypertension. SECONDARY DIAGNOSES: 1. Diabetes mellitus type 2. 2. Hyperlipidemia. 3. Essential tremor. STUDIES WHILE IN THE HOSPITAL: 1. Chest x-ray on 05/11/18 reads as no evidence for acute disease. 2. Nuclear cardiac stress test on 05/12/18 reads as mildly abnormal estimated left ventricular ejection fraction of 49% with interval decrease compared to the 2012 exam. Gated wall motion images were obtained at stress and demonstrate hypokinesia on the rest exam, most prominent at the apex. No evidence for stress-induced ischemia or presence of an infarct. Intermediate risk based on nuclear portion. HISTORY OF PRESENT ILLNESS AND HOSPITAL COURSE: Mr. Rodgers is a 53-year-old male with past medical history of diabetes, hypertension, hyperlipidemia and essential tremor who presented to the emergency room on 05/11/18 with complaints of chest pain, pressure and shortness of breath. Please see the history and physical by Hetal Chan NP for a complete summary of the events leading up to this hospitalization. In short, the patient reported abrupt pain that morning. He felt as though it was hard for him to take a full breath and he had accompanying lightheadedness and dizziness. The pain was midsternal. The patient had been taken off his propranolol by his primary care provider within the past week. He had been taking this for about 15 years for an essential tremor. Reportedly, he was taking 120 mg extended release. His PCP cut the dose down to 60 mg for two weeks and then the medication was discontinued. He additionally reported palpitation and difficulty sleeping. In the emergency room, the patient was noted to have negative troponins. He had an EKG, which showed normal sinus rhythm. There was a slight concern for T- wave inversion in leads 3, though no ST elevations or other significant ischemic changes. He was admitted by the hospitalist service for rule out myocardial infarction. The patient had a relatively uneventful night. He continued to report some lower sternal chest discomfort, though no shortness of breath. He was on telemetry monitoring overnight and remained in normal sinus rhythm. All troponin's were negative. He had a stress test this morning. Results are noted above. I did speak with Dr. Gregg, as this was an intermediate stress test, though because the patient has no ischemic changes he advised that the patient would be stable for discharge, though he should likely have a follow up echocardiogram as an outpatient to further evaluate his ejection fraction. Mr. Rodgers was stable for discharge today. Vital signs are as follows. Temperature 98.2, heart rate 72, respiratory rate 14, oxygen saturation 100% on room air, blood pressure 121/73. MEDICATIONS: [place] Medications: 1. Propranolol extended release 60 mg p.o. daily. Continued Home Medications: 1. Aspirin 81 mg p.o. daily. 2. Latanoprost 0.005% one drop daily. 3. Losartan 50 mg p.o. daily. 4. Metformin 1000 mg p.o. daily. 5. Multivitamin one tab p.o. daily. 6. Rosuvastatin 10 mg p.o. daily. 7. Ambien 5 to 10 mg p.o. at bedtime p.r.n. DISCHARGE PLAN: Mr. Rodgers will be discharged to home. Activity will be as tolerated. Diet will be diabetic heart healthy. Medications are noted above. I have restarted the patient on his propranolol. He initially stopped taking this, as he felt it was not helping his tremors, though he reported to me today that since being off it, he feels as though his tremors have gotten worse and he is agreeable to restarting the medication. I will also note that he has had some elevated blood pressures up into the 150s while off the propranolol. We agree that the patient would start at 60 mg daily and he will consult with his PCP, as he feels as though he may want to go back up to 120 mg daily. Other home medications will remain the same. He should follow up with his PCP in 4 to 7 days. As noted above, we would recommend an outpatient transthoracic echocardiogram to further evaluate his ejection fraction. The patient has been instructed to return to the emergency room or nearest hospital for any worsening symptoms, shortness of breath, lightheadedness, dizziness, chest discomfort, high fevers, chills, night sweats, loss of consciousness, or any other worrisome signs or symptoms. This is a summarized report of a complex medical history and hospital stay. For further details, please see the entire medical record. TIME SPENT: Approximately 45 minutes was spent on this discharge, greater than half of that time was spent [id number] with the patient discussing discharge plans and instructions. BEATA OLSEN NP [id number]/[facility] #: [id number] MILY
== END 2018-05-12 16:18 | disposition home or self-care (01) ==
LOC: ED 10:27 → MEDTELE 13:22
PROVIDERS: ADMIT Hospitalist; ATTEND Hospitalist
DX: T44.7X5A Adverse effect of beta-adrenoreceptor antagonists, initial encounter (principal); Y92.9 Unspecified place or not applicable; E11.9 Type 2 diabetes mellitus without complications; E78.5 Hyperlipidemia, unspecified; G25.0 Essential tremor; R42 Dizziness and giddiness; Z79.82 Long term (current) use of aspirin; R07.9 Chest pain, unspecified; R06.02 Shortness of breath; R19.7 Diarrhea, unspecified
CPT/HCPCS: 36415; 71045; 78452; 80053; 80061; 83036; 83605; 84484; 85025; 85379; 85652; 86140; 93005; 93017; 96360; 96361; 99283; A9270-GY; A9505; G0378

== ENCOUNTER 2018-05-14 19:28 | Emergency (ER) | payer BC ==
--- NOTE | 2018-05-14 19:57 | ED ---
HPI Chest Pain - HPI Summary HPI Summary: The patient is a 53 y/o M brought in by ambulance to [facility] presenting with a chief complaint of two episodes of sudden onset sharp CP since yesterday. Last night, the pt was at rest, getting ready for bed when the pressure came on, and his toes became numb, which lasted for about an hour and a half until he fell asleep. When he woke up this morning, he did not have the CP, and he felt normal throughout the day. Around 17:30, he was sitting down in a chair, when the CP and toe numbness came on again. He had associated SOB and watery diarrhea. His pain has mostly relieved to 3/10 in severity, which was helped by an aspirin that he had in the ambulance. He had been admitted to [facility] on 05/10 for the same pressure as well as increased BP, but he was discharged the following day. It was found that he was hypertrophic cardiomyopathy. This may be a result of him stopping his propranolol prescription on 05/04, which he was taking for 15 years. He is scheduled to visit his PCP tomorrow for a referral for an echocardiogram. - History of Current Complaint Chief Complaint: EDChestPainROMI Time Seen by Provider: 05/14/18 19:35 Hx Obtained From: Patient Onset/Duration: Started Days Ago - starting 05/10, returning yesterday, Still Present Timing: Intermittent, Lasting Hours Initial Severity: Severe Current Severity: Mild Pain Intensity: 3 Pain Scale Used: 0-10 Numeric Chest Pain Location: Diffuse Chest Pain Radiates: No Character: Pressure/Squeezing Aggravating Factor(s): Nothing Alleviating Factor(s): Medication - aspirin Associated Signs and Symptoms: Positive: Chest Pain, Shortness of Breath, Other : - diarrhea - Additional Pertinent History Primary Care Physician: [id number] - Allergy/Home Medications Allergies/Adverse Reactions: Allergies Allergy/AdvReac Type Severity Reaction Status Date / Time lisinopril Allergy Rash Verified 03/09/18 09:49 PMH/Surg Hx/FS Hx/Imm Hx Endocrine/Hematology History: Reports: Hx Diabetes - diet controlled Cardiovascular History: Reports: Hx Angina, Hx Hypercholesterolemia, Hx Hypertension Denies: Hx Pacemaker/ICD Respiratory History: Reports: Hx Sleep Apnea - MILD Denies: Hx Asthma GI History: Reports: Hx Gall Bladder Disease - cholecystectomy, Hx Gastroesophageal Reflux Disease - CONTROLLED WITH MEDICATION, Hx Hiatal Hernia Denies: Hx Cirrhosis, Hx Crohn's Disease, Hx Diverticulosis, Hx Gastrointestinal Bleed, Hx Irritable Bowel, Hx Obstructive Bowel, Hx Ulcer History: Reports: Hx Benign Prostatic Hyperplasia - rx'd flomax - doesn't use Denies: Hx Dialysis, Hx Kidney Infection, Hx Kidney Stones, Hx Renal Disease Sensory History: Reports: Hx Contacts or Glasses - WEARS CONTACTS-INSTRUCTED TO REMOVE PRIOR TO SURGERY Denies: Hx Hearing Aid Opthamlomology History: Reports: Hx Contacts or Glasses - WEARS CONTACTS- INSTRUCTED TO REMOVE PRIOR TO SURGERY Psychiatric History: Denies: Hx Panic Disorder - Surgical History Surgery Procedure, Year, and Place: GALLBLADDER 12/31/12; RIGHT KNEE SCOPE sinus Hx Anesthesia Reactions: No Infectious Disease History: No Infectious Disease History: Denies: History Other Infectious Disease, Traveled Outside the [place] in Last 30 Days - Family History Known Family History: Positive: Diabetes, Other - father - lung CA (smoker, structural iron worker) - Social History Alcohol Use: None Hx Substance Use: No Substance Use Type: Reports: None Hx Tobacco Use: No Smoking Status (MU): Never Smoked Tobacco Review of Systems Positive: Chest Pain - diffuse Positive: Shortness Of Breath Positive: Diarrhea Positive: Numbness - in toes on bilateral feet All Other Systems Reviewed And Are Negative: Yes Physical Exam - Summary Physical Exam Summary: Appearance: The patient is well-nourished in no acute distress and in no acute pain. Skin: The skin is warm and dry and skin color reflects adequate perfusion. HEENT: The head is normocephalic and atraumatic. The pupils are equal and reactive. The conjunctivae are clear and without drainage. Nares are patent and without drainage. Mouth reveals moist mucous membranes and the throat is without erythema and exudate. The external ears are intact. The ear canals are patent and without drainage. The tympanic membranes are intact. Neck: The neck is supple with full range of motion and non-tender. There are no carotid bruits. There is no neck vein distension. Respiratory: Chest is non-tender. Lungs are clear to auscultation and breath sounds are symmetrical and equal. Cardiovascular: Heart is regular rate and rhythm. There is no murmur or rub auscultated. There is no peripheral edema and pulses are symmetrical and equal. Abdomen: The abdomen is soft and non-tender. There are normal bowel sounds heard in all four quadrants and there is no organomegaly palpated. Musculoskeletal: There is no back tenderness noted. Extremities are non-tender with full range of motion. There is good capillary refill. There is no peripheral edema or calf tenderness elicited. Neurological: Patient is alert and oriented to person, place and time. The patient has symmetrical motor strength in all four extremities. Cranial nerves are grossly intact. Deep tendon reflexes are symmetrical and equal in all four extremities. Psychiatric: The patient has an appropriate affect and does not exhibit any anxiety or depression. Triage Information Reviewed: Yes Vital Signs On Initial Exam: Initial Vitals Temp Pulse Resp BP Pulse Ox 98.3 F 70 18 143/99 96 05/14/18 19:45 05/14/18 19:45 05/14/18 19:45 05/14/18 19:45 05/14/18 19:45 Vital Signs Reviewed: Yes Diagnostics - Vital Signs Vital Signs Temp Pulse Resp BP Pulse Ox 05/14/18 19:46 67 16 97 05/14/18 19:45 98.3 F 70 18 143/99 96 - Laboratory Result Diagrams: 05/14/18 20:12 05/14/18 20:12 Lab Statement: Any lab studies that have been ordered have been reviewed, and results considered in the medical decision making process. - EKG 19:47 Cardiac Rate: NL - 66 BPM EKG Rhythm: Sinus Rhythm ST Segment: Normal Ectopy: None EKG Comparison: No Significant Change - Unchanged from 05/11/18. Summary of EKG Findings: No STEMI. Chest Pain Course/Dx - Course Course Of Treatment: Mr. Rodgers presented with chest pain this evening. The chest pain was improving on its own although he did get some aspirin in the ambulance. His blood pressure was reportedly high in the ambulance and although it is slightly high now it is certainly not in the dangerous level. He is getting a workup for chest pain. His initial EKG is unchanged from 2 days ago when he was evaluated here in the emergency department and admitted to the hospital. He underwent a stress test at that point which was moderate risk for coronary artery disease. At that point he was felt to be safe to go home. I suspect he needs at least 2 troponins here. - Diagnoses Provider Diagnoses: Chest pain Discharge - Sign-Out/Discharge Documenting (check all that apply): Sign-Out Patient Signing out patient TO: Judd Gipson - Patient will be a sign-out to Dr. Judd Gipson MD, at shift change at 22:00 pending lab work and disposition. - Discharge Plan Referrals: Tova Cuellar MD [Primary Care Provider] - - Attestation Statements Document Initiated by Scribe: Yes Documenting Scribe: Liseth Stovall Provider For Whom Scribe is Documenting (Include Credential): Dr. Gael Marte MD Scribe Attestation: I, Liseth Stovall scribed for Dr. Gael Marte MD on 05/14/18 at 2131. Scribe Documentation Reviewed: Yes Provider Attestation: The documentation as recorded by the Liseth perea accurately reflects the service I personally performed and the decisions made by me, Dr. Gael Marte MD
[2018-05-14 20:21] LABS: ABS Basophils 0.1 10^3/ul (0-0.2); ABS Eosinophils 0.3 10^3/ul (0-0.6); ABS Lymphocytes 1.7 10^3/ul (1.0-4.8); ABS Monocytes 0.8 10^3/ul (0-0.8); ABS Nucleated RBC 0 10^3/ul; Hematocrit 41 % (42-52); Hemoglobin 14.1 g/dl (14.0-18.0); Mean Corpuscular HGB Conc 34 g/dl (31-36); Mean Corpuscular Hemoglobin 29 pg (27-31); Mean Corpuscular Volume 85 fL (80-94); Mean Platelet Volume 7.5 fL (7.4-10.4); Nucleated Red Blood Cells % 0; Platelet Count 239 10^3/ul (150-450); Red Cell Distribution Width 13 % (10.5-15); White Blood Count 12.9 10^3/ul (3.5-10.8)
[2018-05-14 20:38] LABS: EGFR Non-African American 82.9 (>60)
--- NOTE | 2018-05-14 23:52 | ED ---
Progress - Progress Note Progress Note: This patient was signed out from Dr. Marte on shift change awaiting a second troponin. The second troponin was negative for the patient will be discharged with a dx of CP Course/Dx - Course Course Of Treatment: This patient was signed out from Dr. Marte on shift change awaiting a second troponin. The second troponin was negative for the patient will be discharged with a dx of CP - Diagnoses Provider Diagnoses: Chest pain Discharge - Sign-Out/Discharge Documenting (check all that apply): Patient Departure, Receiving Sign-Out Receiving patient FROM: Gael Marte - Discharge Plan Condition: Stable Disposition: HOME Patient Education Materials: Chest Pain (ED) Referrals: Tova Cuellar MD [Primary Care Provider] - Additional Instructions: Follow up with your primary care physician in 1-3 days. RETURN TO THE EMERGENCY DEPARTMENT FOR CHANGING OR WORSENING SYMPTOMS. - Attestation Statements Document Initiated by Scribe: Yes Documenting Scribe: Wilberto Garces Provider For Whom Scribe is Documenting (Include Credential): Jose L Gipson MD Scribe Attestation: Wilberto An, scribed for Jose L Gipson MD on 05/14/18 at 9124.
[2018-05-14 23:54] VITALS: BP 130/74
== END 2018-05-15 00:32 | disposition home or self-care (01) ==
LOC: ED 19:28
DX: R07.89 Other chest pain (principal); R06.02 Shortness of breath; R19.7 Diarrhea, unspecified; K21.9 Gastro-esophageal reflux disease without esophagitis; K44.9 Diaphragmatic hernia without obstruction or gangrene; Z88.8 Allergy status to other drugs, medicaments and biological substances
CPT/HCPCS: 36415; 80053; 83605; 83735; 84443; 84484; 85025; 93005; 99284

== ENCOUNTER 2019-03-29 17:14 | Emergency (ER) | payer BC ==
--- OUTSIDE RECORDS SUMMARY | 2019-03-29 17:20 | XMS REPORT | Continuity of Care Document ---
:1965 External Reference #:[id number] Author Name Jitendra Andrews NP (transmitted by agent of provider Gaviota Tovar) Address [address], [place] [address] Care Team Providers Name Role Phone Yun Kay MD - Internal Care Team Information Wallet Assembler Medicine Tova Cuellar MD - Internal Care Team Information Wallet Assembler Medicine Manuel Garcia MD - Neurology Care Team Information Wallet Assembler [facility] Care Team Information Wallet Assembler Diagnostic Agustín Bryson MD - Urology Care Team Information Wallet Assembler [phone] Lalo Garcia DPM - Foot Surgery Care Team Information Wallet Assembler Linh Huerta M.D. - Single Care Team Information Wallet Assembler [phone] Specialty Selina Main M.D. - Neurology Care Team Information Wallet Assembler Problems Active Problems Provider Date Type 2 diabetes mellitus Tova Cuellar M.D. Onset: 06/21/2017 Hyperlipidemia Tova Cuellar M.D. Onset: 05/13/2010 Benign essential hypertension Tova Cuellar M.D. Onset: 05/13/2010 Essential tremor Tova Cuellar M.D. Onset: 05/30/2013 Sprain, tarsometatarsal joint Chaim Urias M.D. Onset: 04/03/2015 Cervico-occipital neuralgia Manuel Vega M.D. Onset: 09/29/2016 Chest pain Hetal Chan NP Onset: 05/11/2018 Essential tremor Beata Arreolaulx, JACQUELYN Onset: 05/12/2018 Obstructive sleep apnea syndrome Alexandrea Vargas, JENI, RN, [facility]- Onset: Social History Type Date Description Comments Sex Unknown Tobacco Use Start: Unknown Never Smoked Cigarettes ETOH Use Denies alcohol use Tobacco Use Start: Unknown Patient has never smoked Recreational Drug Use Denies Drug Use Tobacco Use Start: Unknown Patient is not exposed to second hand smoke. Smoking Status Reviewed: 03/22/19 Patient is not exposed to second hand smoke. Exercise Type/Frequency Does not exercise Allergies, Adverse Reactions, Alerts Active Allergies Reaction Severity Comments Date Lisinopril sweating Moderate hotflashes 07/18/2012 Inactive Allergies NKDA 04/28/2010 Medications Active Medications SIG Qnty Indications Ordering Provider Date Cheratussin ac 5-10ml every 6 473ml J01.90 Jitendra Andrews NP 03/22/2019 hours as needed 100-10mg/5ML Solution cough. Amoxicillin/Clavulana take one tablet 20tabs J01.90 Jitendra Andrews NP 2018 te Potassium q12 hours for 10 875-125mg days Tablets Venlafaxine HCL ER 1 by mouth every 30tabs F41.9 Jitendra Andrews NP 03/22/2019 day 150mg Tablets ER 24HR Losartan Potassium 1 by mouth every 90tabs Tova Cuellar, 10/17/2018 day M.D. 100mg Tablets Propranolol HCL ER Take One Capsule 30caps Tova Cuellar, 09/20/2018 By Mouth Once M.D. 120mg Caps ER 24HR Daily Rosuvastatin Calcium Take One Tablet 30tabs Tova Cuellar, 06/12/2018 By Mouth Once M.D. 10mg Tablets Daily Metformin HCL ER Take Two Tablets 60tabs Tova Cuellar, 06/23/2017 500mg By Mouth Every M.D. Tablets ER 24HR Day as Directed Cane For daily use 1units Tova Cuellar, 05/17/2013 [facility] [place] Aspirin 1 by mouth once Tova Cuellar, 03/05/2012 81mg Tablets daily M.D. Multi Vitamin 1 po qd Unknown Tablets Latanoprost 1 gtt both eyes Unknown 0.005% at night Solution Eye Drops 1 gtt Left eye Unknown Pantoprazole Sodium 1 PO bid R10.13 Foor-Pessin, Delmar Melton 40mg Tablets DR Batistakast Sodium 1 by mouth every 90tabs Tova Cotton, 10mg day M.D. Tablets Xyzal Allergy 24HR 1 tab daily Unknown 5mg Tablets History Medications Venlafaxine HCL ER only takes 75mg 1 30caps F41.9 Tova Cotton, 2018 - by mouth every M.D. 03/22/2019 150mg Caps ER 24HR day Venlafaxine HCL ER Take One Capsule 30caps F41.9 Tova Polo, 2018 - By Mouth Once M.D. 02/23/2019 75mg Caps ER 24HR Daily as Directed Immunizations CPT Code Status Date Vaccine Reaction Lot # [id number] Given 04/18/2018 Influenza Virus Vaccine, [id number] Quadrivalent, Split, Preservative Free [id number] Given 06/23/2017 Pneumonia Vaccine [id number] 05301 Given 04/01/2017 Influenza Virus Vaccine, No immedidate [id number] Quadrivalent, Split, reaction..jh Preservative Free 19437 Given 04/27/2016 Influ Virus Vaccine, no reaction noted ... [id number] Quadrivalent, Split Virus, [place] [address] Given 10/30/2015 Tetanus And Diptheria (Td) [id number] For Adult Use Preservative Free 63148 Given 04/18/2015 Influenza Virus Vaccine, [id number] Quadrivalent, Split, Preservative Free 71384 Given 05/28/2013 Flu Vaccine Split Virus [id number] Preservative Free For Indiv 3Yr Older 56110 Given 02/15/2007 Tdap - Tetanus/Diptheria/Acellula r Pertussis Vital Signs Date Vital Result Comment 03/22/2019 2:23pm Height 72 inches 6'0" Weight 248.00 lb Heart Rate 80 /min BP Systolic 113 mmHg BP Diastolic 67 mmHg Body Temperature 99.4 F O2 % BldC Oximetry 93 % BMI (Body Mass Index) 33.6 kg/m2 03/14/2019 3:22pm Height 72 inches 6'0" Weight 249.00 lb Heart Rate 78 /min Respiratory Rate 16 /min Body Temperature 97.9 F BMI (Body Mass Index) 33.8 kg/m2 Results Test Date Facility Test Result H/L Range Note Lipid Profile 02/15/2019 [facility] Triglycerides 319 mg/dL 1 (Trig/Chol/HDL) [place], [place] [id number] [phone] Cholesterol 151 mg/dL 2 HDL Cholesterol 37.6 mg/dL 3 LDL Cholesterol 50 mg/dL 4 Comp Metabolic 02/15/2019 [facility] Sodium 140 mmol/L Normal 135-145 [place] [address] [phone] Potassium 4.1 mmol/L Normal 3.5-5.0 Chloride 105 mmol/L Normal 101-111 Co2 Carbon Dioxide 29 mmol/L Normal 22-32 Anion Gap 6 mmol/L Normal 2-11 Glucose 148 mg/dL High 70-100 Blood Urea Nitrogen 13 mg/dL Normal 6-24 Creatinine 0.83 mg/dL Normal 0.67-1.17 BUN/Creatinine Ratio 15.7 Normal 8-20 Calcium 9.6 mg/dL Normal 8.6-10.3 Total Protein 6.6 g/dL Normal 6.4-8.9 Albumin 4.4 g/dL Normal 3.2-5.2 Globulin 2.2 g/dL Normal 2-4 Albumin/Globulin Ratio 2.0 Normal 1-3 Total Bilirubin 0.40 mg/dL Normal 0.2-1.0 Alkaline Phosphatase 65 U/L Normal 34-104 Alt 24 U/L Normal 7-52 Ast 17 U/L Normal 13-39 Egfr Non- 96.5 >60 Egfr 116.8 >60 5 Laboratory test 02/15/2019 [facility] Hemoglobin A1c 5.9 % High 4.0-5.6 6 finding (Glyco HGB) [place] [address] [phone] Urine 02/15/2019 [facility] Ur Microalbumin < 15.0 Microalbumin (mg/L) mg/L Random [place], [place] [id number] [phone] Urine Creatinine 40.12 mg/dL Urine Microalbumin/Creatinine TNP <31 7 Laboratory test 10/04/2018 [facility] Surgical SEE RESULT [address] [place] [address] [phone] Laboratory test 09/25/2018 [facility] Hemoglobin A1c 5.8 5-7 finding 1 Desirable: <150 Borderline High: 150-199 High: [...] in selective patients <6.0%. Please refer to [place] [employer] diabetic care guidelines for further information. 7 Unable to calculate due to low microalbumin 8 SEE RESULT BELOW Name: AMBIKA TIMMONS JR : [address]: Linh Huerta MD Acct: [id number] Unit: [id number] AGE: 53 Location: ENDO Re10/04/18 SEX: M Status: DEP REF SPEC: [id number] OCTAVIO: 10/04/18- SUBM DR: Linh Hoffman MD REQ: [id number] RECD: 10/04/18 STATUS: ELISA LIAO DR: Tova Cuellar MD _ ORDERED: LEVEL 4/4 FINAL DIAGNOSIS 1. Stomach, biopsy: -- Body-type gastric mucosa with surface erosion and no evidence of significant gastritis. -- No evidence of Helicobacter organisms. 2. Gastroesophageal junction, biopsy: -- Benign squamous and columnar-type mucosa with chronic inflammation. -- Intestinal metaplasia is absent. -- Dysplasia is absent. 3. Esophagus, distal, biopsy: -- Benign squamous mucosa with mild erosive changes. -- No columnar component present for evaluation. 4. Esophagus, mid, biopsy: -- Benign squamous mucosa with mild erosive changes. -- No evidence of eosinophilic esophagitis. CLINICAL HISTORY Eosinophilic esophagitis POST-OPERATIVE DIAGNOSIS EGD: trachealization; linear furrows; gastroesophageal junction at 42 cm with tongue 1 cm; gastric erosion vs ulcer proximal body; antral erythema; duodenum ok CONTINUED ON NEXT PAGE DEPARTMENT OF PATHOLOGY, [address] [place] [address] Travis Null M.D. Director [facility] # [id number] RUN DATE: 10/05/18 [facility] LAB LIVE PAGE 2 Patient: AMBIKA TIMMONS [id number] (Continued) GROSS DESCRIPTION (Continued) GROSS DESCRIPTION 1. The specimen is received in formalin labeled, Gastric Ulcer Biopsy, and consists of a 0.6 x 0.2 x 0.1 cm olsen-yellow irregular soft tissue fragment which is submitted entirely in one cassette. 2. The specimen is received in formalin labeled, GE Junction Biopsies, and consists of two olsen-pink irregular soft tissue fragments averaging 0.3 x 0.1 x 0.1 cm which are submitted entirely in one cassette. 3. The specimen is received in formalin labeled, Distal Esophagus Biopsies , and consists of a 0.7 x 0.3 x 0.1 cm aggregate of white-pink irregular soft tissue fragments which is submitted entirely in one cassette. 4. The specimen is received in formalin labeled, Mid Esophagus Biopsies, and consists of a 0.7 x 0.3 x 0.1 cm aggregate of white-pink irregular soft tissue fragments which is submitted entirely in one cassette. Signed by and Reported on: Shira Khanna MD 10/05/18 1248 END OF REPORT DEPARTMENT OF PATHOLOGY, [address] [place] [address] Travis Null M.D. Director [facility] # [id number] Procedures Date Code Description Status 03/14/2019 09111 Hemorrhoidectomy, Internal, By Rubber Band Ligation(S) Completed 12/23/2018 27728 Sleep Study Unattended,HRT Rate,Oxygen Sat,Resp Completed Effort/Airflow 12/23/2018 00138 Sleep Study Unattended,HRT Rate,Oxygen Sat,Resp Completed Effort/Airflow 08/23/2018 19000959 Colonoscopy Completed 07/26/2018 531672754 Diabetic Retinal Eye Exam Completed 04/21/2017 506469928 Diabetic Retinal Eye Exam Completed 02/11/2017 [id number] Colonoscopy Completed 04/25/2009 [id number] Colonoscopy Completed Medical Devices Description No Information Available Encounters Type Date Location Provider Dx Diagnosis Office Visit 03/14/2019 Surgical Uri Smith K64.0 First degree 3:30p [facility] MD [place]e hemorrhoids K62.5 Hemorrhage of anus and rectum Office Visit 02/23/2019 2:00p [facility] Internal Tova E11.9 Type 2 phu Cuellar M.D. 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 mellitus without Ccmob complications I10 Essential (primary) hypertension G47.9 Sleep disorder, unspecified Office Visit 10/17/2018 2:00p [facility] Internal Tova I10 Essential ( primary) Carson - Delmar Cuellar hypertension Ccmob G25.0 Essential tremor E11.9 Type 2 diabetes mellitus without complications F41.9 Anxiety disorder, unspecified Office Visit 10/02/2018 4:20p [facility] Internal Jitendra Juliana, J02.9 Acute pharyngitis, Medicine - Ccmob COPY CHIEF unspecified I10 Essential (primary) hypertension Office Visit 09/25/2018 DoNotUse [facility] Internal Tova I10 Essential 3:40p Medicine-Ana Cuellar M.D. (primary) hypertension E11.9 Type 2 diabetes mellitus without complications Assessments Date Code Description Provider 03/22/2019 J01.90 Acute sinusitis, unspecified Jitendraguzman Andrews, COPY CHIEF 03/22/2019 R05 Cough Jitendra Andrews NP 03/14/2019 K64.0 First degree hemorrhoids Uri Cornejo MD 03/14/2019 K62.5 Hemorrhage of anus and rectum Uri Cornejo MD 02/23/2019 E11.9 Type 2 diabetes mellitus without Tova Cuellar M.D. complications 02/23/2019 I10 Essential (primary) hypertension Tova Cuellar M.D. 02/23/2019 G47.00 Insomnia, unspecified Tova Cuellar M.D. 02/23/2019 F41.9 Anxiety disorder, unspecified Tova Cuellar M.D. 12/29/2018 G47.33 Obstructive sleep apnea (adult) Alexandrea Vargas DNP, ENRRIQUE, (pediatric) [facility] 12/29/2018 G47.21 Circadian rhythm sleep disorder, Alexandrea Vargas DNP, RN, delayed sleep phase type [facility] 12/23/2018 G47.33 Obstructive sleep apnea (adult) Lis Rodney MD (pediatric) 12/02/2018 G47.9 Sleep disorder, unspecified Lis Rodney MD 12/02/2018 G47.21 Circadian rhythm sleep disorder, Lis Rodney MD delayed sleep phase type 12/02/2018 G47.00 Insomnia, unspecified Lis Rodney MD 11/21/2018 E11.9 Type 2 diabetes mellitus without Tova Cuellar M.D. complications 11/21/2018 I10 Essential (primary) hypertension Tova Cuellar M.D. 11/21/2018 G47.9 Sleep disorder, unspecified Tova Cuellar M.D. 10/17/2018 I10 Essential (primary) hypertension Tova Cuellar M.D. 10/17/2018 G25.0 Essential tremor Tova Cuellar M.D. 10/17/2018 E11.9 Type 2 diabetes mellitus without Tova Cuellar M.D. complications 10/17/2018 F41.9 Anxiety disorder, unspecified Tova Cuellar M.D. 10/02/2018 J02.9 Acute pharyngitis, unspecified Jitendra Andrews NP 10/02/2018 I10 Essential (primary) hypertension Jitendra Andrews NP 09/25/2018 I10 Essential (primary) hypertension Tova Cuellar M.D. 09/25/2018 E11.9 Type 2 diabetes mellitus without Tova Cuellar M.D. complications Plan of Treatment Future Appointment(s):04/03/2019 11:45 am - Uri Cornejo MD at [facility]04/25/2019 11:15 am - Alexandrea Vargas DNP, RN, PROCESS SAFETY ENGINEER-BC at [facility]08/07/2019 3:00 pm - Tova Cuellar M.D. at [facility]04/10/2019 4:00 pm - Tova Cuellar M.D. at [facility]03/22/2019 - Jitendra Andrews NPJ01.90 Acute sinusitis, unspecifiedNew Medication:Cheratussin ac 100-10 mg/5ML - 5-10ml every 6 hours as needed cough.Amoxicillin/Clavulanate Potassium 875-125 mg - take one tablet q12 hours for 10 daysComments:Avoid the Eileen [place] as the decongestant is probably increasing the blood pressure and heart rate (Avoid any medications with pseudoephedrine or phenylephrine).Use the cough medication as needed.If your symptoms worsen at all or do not improve over the next couple of days start the antibiotic.R05 Cough Functional Status Description No Information Available Mental Status Description No Information Available Referrals Refer to Reason for Referral Status Appt Date Selina Main M.D. Sent [address] [facility] [place] [address] [phone]
--- OUTSIDE RECORDS SUMMARY | 2019-03-29 17:20 | XMS REPORT | Continuity of Care Document ---
:1965 External Reference #:[id number] Author Name Tova Cuellar M.D. (transmitted by agent of provider Jory Cornell) Address [address] [facility], [place] [address] Care Team Providers Name Role Phone Yun Kay MD - Internal Care Team Information [employer] Supervisor Medicine Tova Cuellar MD - Internal Care Team Information Wire [employer] Fabrication Supervisor [phone] Medicine Manuel Garcia MD - Neurology Care Team Information [employer]rication Supervisor [facility] - [facility] Disorder Care Team Information Wire [employer] Fabrication Supervisor [phone] Diagnostic Agustín Bryson MD - Urology Care Team Information Wire [employer]rication Supervisor [phone] Lalo Garcia DPM - Foot Surgery Care Team Information Wire R[employer] Fabrication Supervisor Linh Huerta M.D. - Single Care Team Information [employer]rication Supervisor Specialty Selina Main M.D. - Neurology Care Team Information [employer]rication Supervisor Problems Active Problems Provider Date Type 2 diabetes mellitus Tova Cuellar M.D. Onset: 06/21/2017 Hyperlipidemia Tova Cuellar M.D. Onset: 05/13/2010 Benign essential hypertension Tova Cuellar M.D. Onset: 05/13/2010 Essential tremor Toav Cuellar M.D. Onset: 05/30/2013 Sprain, tarsometatarsal joint Chaim Urias M.D. Onset: 04/03/2015 Cervico-occipital neuralgia Manuel Vega M.D. Onset: 09/29/2016 Chest pain Hetal Chan NP Onset: 05/11/2018 Essential tremor Beata Olsen, [employer] Onset: 05/12/2018 Obstructive sleep apnea syndrome Alexandrea Vargas, JENI, RN, [facility]- Onset: Social History Type Date Description Comments Sex Unknown Tobacco Use Start: Unknown Never Smoked Cigarettes ETOH Use Denies alcohol use Tobacco Use Start: Unknown Patient has never smoked Recreational Drug Use Denies Drug Use Tobacco Use Start: Unknown Patient is not exposed to second hand smoke. Smoking Status Reviewed: 02/23/19 Patient is not exposed to second hand smoke. Exercise Type/Frequency Exercises regularly Allergies, Adverse Reactions, Alerts Active Allergies Reaction Severity Comments Date Lisinopril sweating Moderate 07/18/2012 Inactive Allergies NKDA 04/28/2010 Medications Active Medications SIG Qnty Indications Ordering Provider Date Venlafaxine HCL ER 1 by mouth every 30caps F41.9 Tova Cotton, 2018 day M.D. 150mg Caps ER 24HR Losartan Potassium 1 by mouth every 90tabs Tova Cotton, 10/17/2018 day M.D. 100mg Tablets Propranolol HCL ER Take 1 PO daily 30caps Tova Cotton, 09/20/2018 M.D. 120mg Caps ER 24HR Rosuvastatin Calcium Take One Tablet [facility], 06/12/2018 By Mouth Once M.D. 10mg Tablets Daily Metformin HCL ER Take Two Tablets 60tabs [facility], 06/23/2017 500mg By Mouth Every M.D. Tablets ER 24HR Day as Directed Cane For daily use 1units Tova Cuellar, 05/17/2013 [facility] Aspirin 1 by mouth once Tova Cuellar, 03/05/2012 81mg Tablets daily M.D. Multi Vitamin 1 po qd Unknown Tablets Latanoprost 1 gtt both eyes Unknown 0.005% at night Solution Eye Drops 1 gtt Left eye Unknown Pantoprazole Sodium 1 PO bid R10.13 Foor-Pessin, Delmar Melton 40mg Tablets Montelukast Sodium 1 by mouth every 90tabs Tova Cotton, 10mg day M.D. Tablets Xyzal Allergy 24HR Unknown 5mg Tablets History Medications Venlafaxine HCL ER Take One Capsule 30caps F41.9 Tova Cuellar, 2018 - By Mouth Once M.D. 02/23/2019 75mg Caps ER 24HR Daily as Directed Immunizations CPT Code Status Date Vaccine Reaction Lot # [id number] Given 04/18/2018 Influenza Virus Vaccine, [id number] Quadrivalent, Split, Preservative Free 95237 Given 06/23/2017 Pneumonia Vaccine [id number] 19926 Given 04/01/2017 Influenza Virus Vaccine, No immedidate [id number] Quadrivalent, Split, reaction..jh Preservative Free 87486 Given 04/27/2016 Influ Virus Vaccine, no reaction noted ... [id number] Quadrivalent, Split Virus, [place] [address] Given 10/30/2015 Tetanus And Diptheria (Td) [id number] For Adult Use Preservative Free 38579 Given 04/18/2015 Influenza Virus Vaccine, [id number] Quadrivalent, Split, Preservative Free 47460 Given 05/28/2013 Flu Vaccine Split Virus [id number] Preservative Free For Indiv 3Yr Older 96905 Given 02/15/2007 Tdap - Tetanus/Diptheria/Acellula r Pertussis Vital Signs Date Vital Result Comment 02/23/2019 2:00pm Height 72 inches 6'0" Weight 249.00 lb Heart Rate 72 /min BP Systolic 123 mmHg BP Diastolic 77 mmHg O2 % BldC Oximetry 97 % BMI (Body Mass Index) 33.8 kg/m2 12/29/2018 11:00am Height 72 inches 6'0" Weight 244.00 lb Per pt, scale not available Heart Rate 68 /min BP Systolic Sitting 118 mmHg Lue large cuff BP Diastolic Sitting 76 mmHg Lue large cuff Respiratory Rate 14 /min O2 % BldC Oximetry 96 % On Ra BMI (Body Mass Index) 33.1 kg/m2 Results Test Date Facility Test Result H/L Range Note Lipid Profile 02/15/2019 [facility] Triglycerides 319 mg/dL 1 (Trig/Chol/HDL) [address] [place] [address] [phone] Cholesterol 151 mg/dL 2 HDL Cholesterol 37.6 mg/dL 3 LDL Cholesterol 50 mg/dL 4 Comp Metabolic 02/15/2019 [facility] Sodium 140 mmol/L Normal 135-[address] [place] [address] [phone] Potassium 4.1 mmol/L Normal 3.5-5.0 Chloride 105 [...] Egfr 116.8 >60 5 Laboratory test 02/15/2019 [facility] Hemoglobin A1c 5.9 % High 4.0-5.[address] (Glyco HGB) [place] [address] [phone] Urine 02/15/2019 [facility] Ur Microalbumin < 15.0 Microalbumin 101 (mg/L) mg/[place] [address] [phone] Urine Creatinine 40.12 mg/dL Urine Microalbumin/Creatinine TNP <31 7 Laboratory test 10/04/2018 [facility] Surgical SEE RESULT [address] [place] [address] [phone] Laboratory test 09/25/2018 [facility] Hemoglobin A1c 5.8 5-7 finding [...] in selective patients <6.0%. Please refer to [place] [employer] diabetic care guidelines for further information. 7 Unable to calculate due to low microalbumin 8 SEE RESULT BELOW Name: AMBIKA TIMMONS JR : [address]: Linh Huerta MD Acct: [id number] Unit: [id number] AGE: 53 Location: ENDO Re10/04/18 SEX: M Status: DEP REF SPEC: [id number] OCTAVIO: 10/04/18- SUBM DR: Linh Hoffman MD REQ: [id number] RECD: 10/04/183 STATUS: ELISA LIAO DR: Tova Cuellar MD [...] CONTINUED ON NEXT PAGE DEPARTMENT OF PATHOLOGY, [address] [place] [address] Travis Null M.D. Director [facility] # [id number] RUN DATE: 10/05/18 [facility] LAB LIVE PAGE 2 Patient: AMBIKA TIMMONS JR [id number] (Continued) GROSS DESCRIPTION (Continued) GROSS DESCRIPTION 1. [...] 1248 END OF REPORT DEPARTMENT OF PATHOLOGY, [address] [place] [address] Travis Null M.D. Director [facility] # [id number] Procedures Date Code Description Status 12/23/2018 91870 Sleep Study Unattended,HRT Rate,Oxygen Sat,Resp Completed Effort/Airflow 12/23/2018 06345 Sleep Study Unattended,HRT Rate,Oxygen Sat,Resp Completed Effort/Airflow 07/26/2018 720669950 Diabetic Retinal Eye Exam Completed 04/21/2017 [id number] Diabetic Retinal Eye Exam Completed 02/11/2017 [id number] Colonoscopy Completed 04/25/2009 [id number] Colonoscopy Completed Medical Devices Description No Information Available Encounters Type Date Location Provider Dx Diagnosis Office Visit 12/29/2018 Pulmonology And Alexandrea Vargas, G47.33 Obstructive sleep 11:30a [facility] RN, JAVA [employer] DEVELOPER-[employer] apnea (adult) [facility] (pediatric) 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 mellitus without Ccmob complications I10 Essential (primary) hypertension G47.9 Sleep disorder, unspecified Office Visit 10/17/2018 2:00p [facility] Internal Tova I10 Essential ( primary) Medicine Winsome Cuellar M.D. hypertension Ccmob G25.0 Essential tremor E11.9 Type 2 diabetes mellitus without complications F41.9 Anxiety disorder, unspecified Office Visit 10/02/2018 4:20p [facility] Internal Jitendra Juliana, J02.9 Acute pharyngitis, Medicine - Ccmob [employer] unspecified I10 Essential (primary) hypertension Office Visit 09/25/2018 DoNotUse [facility] Internal Tova I10 Essential 3:40p Medicine-Ana Cuellar M.D. (primary) hypertension E11.9 Type 2 diabetes mellitus without complications Assessments Date Code Description Provider 02/23/2019 E11.9 Type 2 diabetes mellitus without Tova Cuellar M.D. complications 02/23/2019 I10 Essential (primary) hypertension Tova Cuellar M.D. 02/23/2019 G47.00 Insomnia, unspecified Tova Cuellar M.D. 02/23/2019 F41.9 Anxiety disorder, unspecified Tova Cuellar M.D. 12/29/2018 G47.33 Obstructive sleep apnea (adult) Alexandrea Vargas DNP, RN, (pediatric) [facility]- 12/29/2018 G47.21 Circadian rhythm sleep disorder, Alexandrea Vargas DNP, RN, delayed sleep phase type [facility] 12/23/2018 G47.33 Obstructive sleep apnea (adult) [...] Cuellar M.D. 10/02/2018 J02.9 Acute pharyngitis, unspecified Jitendraguzman Andrews, [employer] 10/02/2018 I10 Essential (primary) hypertension Jitendra Andrews, [employer] 09/25/2018 I10 Essential (primary) hypertension Tova Cuellar M.D. 09/25/2018 E11.9 Type 2 diabetes mellitus without Tova Cuellar M.D. complications Plan of Treatment Future Appointment(s):08/07/2019 3:00 pm - Tova Cuellar M.D. at [facility] Internal Medicine - [facility]04/10/2019 4:00 pm - Tova Cuellar M.D. at [facility] Internal Medicine - [facility]02/28/2019 9:45 am - Alexandrea Vargas DNP, RN, [facility] at [facility]02/23/2019 - Tova Cuellar M.D.E11.9 Type 2 diabetes mellitus without complicationsComments:Your A1C is 5.9 which is hhhczF15 Essential (primary) hypertensionComments:Your blood pressure is fine. Continue the same twnoxyrrunO67.00 Insomnia, unspecifiedComments:See the sleep ghmwdfcqrcT62.9 Anxiety disorder, unspecifiedNew Medication:Venlafaxine HCL ER 150 mg - 1 by mouth every dayComments:Increase the venlafaxine from 75 mg to 150 mgFollow up:6 weeks for anxiety PHQ9 and 6 months for PE Functional Status Description No Information Available Mental Status Description No Information Available Referrals Refer to Reason for Referral Status Appt Date Selina Main M.D. Sent [address] [facility] [address] [place] [address] [phone]
--- OUTSIDE RECORDS SUMMARY | 2019-03-29 17:20 | XMS REPORT | Continuity of Care Document ---
:1965 External Reference #:[id number] Author Name Linh Huerta MD Address [facility] access hospital[facility], [facility] [place] [address] Care Team Providers Name Role Phone Tova Cuellar MD Care Team Information [employer] Project Manager Unavailable Tova Cuellar MD Primary Care Physician Unavailable Payers Date Identification Numbers Payment Provider Subscriber Policy Number: [id number] [facility] WILIAN Juli Alvarez PayID: [id number] [address] [address] [place] [address] Problems Active Problems Provider Date Epigastric pain Rosie Hinton PA-C Onset: 07/10/2018 Gastrointestinal tract finding Rosie Hinton PA-C Onset: 02/07/2017 Hemorrhage of rectum and anus Rosie Hinton PA-C Onset: 02/07/2017 Essential hypertension Rosie Hinton PA-C Onset: 02/07/2017 Pure hypercholesterolemia Rosie Hinton PA-C Onset: 02/07/2017 Family History Date Family Member(s) Observation Comments Father Lung Cancer Mother Chronic Obstructive Pulmonary Disease (COPD) Social History Type Date Description Comments Sex Unknown ETOH Use Denies alcohol use Allergies, Adverse Reactions, Alerts Active Allergies Reaction Severity Comments Date Lisinopril sweating Moderate 07/18/2012 Medications Active Medications SIG Qnty Indications Ordering Provider Date Pantoprazole Sodium take 1 tablet 60tabs Linh 08/02/2018 40mg twice daily. MD Deanna Tablets DR take 30-60 minutes before eating. Singulair take one tablet 30tabs Tova Cuellar, 06/25/2012 10mg Tablets by mouth once daily Xyzal Take One Tablet 30tabs J30.9 Tova Cuellar, 03/07/2012 5mg Tablets By Mouth Once Daily Aspirin 1 by mouth once Tova Cuellar, 03/05/2012 81mg Tablets daily MD Pastrana Take One Tablet 30tabs Tova Cuellar, 10/26/2011 10mg Tablets By Mouth Once MD Daily Propranolol HCL ER take 1 tab by Unknown 160mg mouth each day Caps ER 24HR Metformin HCL Unknown Venlafaxine HCL Unknown 37.5mg Tablets History Medications Colyte With Flavor by mouth as 4000ml Linh Hureta, 08/16/2018 - Packs directed 01/22/2019 240gm Solution Rec Peg use as directed 4000ml Rosie L. 02/07/2017 - 3350/Electrolytes ARTHUR Hinton 07/09/2018 240gm Solution Rec Tramadol HCL 1-2 tablets 60tabs N48.5 Tova Cuellar MD 01/31/2017 - 50mg every 6 hours as 02/07/2017 Tablets needed Omeprazole 1 by mouth every 30caps R12 Tova Cuellar MD 01/25/2017 - 40mg day 02/07/2017 Capsules Propranolol HCL 1 by mouth twice 60tabs G25.0 Manuel Garcia MD 2014 - a day 02/07/2017 20mg Tablets Atenolol 1 by mouth every Unknown - 25mg day 07/09/2018 Tablets Omeprazole 1 by mouth every Unknown - 40mg day 01/22/2019 Capsules Immunizations CPT Code Status Date Vaccine Lot # [id number] Given 10/30/2015 Td Preservative Free For Use In Individuals 7 Yrs Or Older 21021 Given 04/18/2015 Influenza Virus Vaccine, Quadrivalent, Split, Preservative Free 22861 Given 05/28/2013 Influenza Virus Vaccine Split Virus Use For Individual 3Yr Older 74542 Given 02/15/2007 Tetanus, Diphtheria Toxoids/Acellular Pertussis Vaccine 7 Or > Vital Signs Date Vital Result Comment 01/23/2019 12:53pm Height 71 inches 5'11" Weight 250.00 lb BP Systolic 139 mmHg BP Diastolic 77 mmHg Heart Rate 72 /min BMI (Body Mass Index) 34.9 kg/m2 10/17/2018 12:54pm Height 71 inches 5'11" Weight 248.00 lb BMI (Body Mass Index) 34.6 kg/m2 07/10/2018 3:02pm Height 71 inches 5'11" Weight 230.00 lb BP Systolic 132 mmHg BP Diastolic 82 mmHg Heart Rate 66 /min BMI (Body Mass Index) 32.1 kg/m2 02/07/2017 9:52am Height 71 inches 5'11" Weight 258.00 lb BP Systolic 140 mmHg BP Diastolic 80 mmHg Heart Rate 62 /min BMI (Body Mass Index) 36.0 kg/m2 Results Test Date Facility Test Result H/L Range Note Laboratory test [facility] SEE RESULT 1 finding 9 Interface BELOW Order Laboratory test [facility] SEE RESULT 2 finding 9 Pathology BELOW CBC W/Auto [facility] White Blood 6.4 3/UL 4.8-10.8 Differential(!) [address] [place] [address] Auto CNT [phone] RBC Red Blood Count 4.64 X106/UL 4.60-6.20 Hemoglobin Blood 13.8 g/dL Low 14-18 Hematocrit 41.8 % Low 42-52 MCV (Corpuscular Volume) 90.2 FL 79-97 MCH (Corpuscular Hemoglobin) 29.8 pg 27-31 MCHC (Corpuscular Hemog Conc) 33.0 g/dL 32.0-36.0 RDW 14.1 % 10.5-15.0 Platelet Count Blood Auto CNT 212 X103/UL 150-450 MPV 6.9 FL Low 7.4-10.4 Lymph% 29.6 % 20.0-45.0 [place]% 3.2 % 1.0-9.0 Neutrophil % 67.2 % 38.0-83.0 Absolute Lymphocytes 1.9 X103/UL 1.0-4.8 Absolute Monocytes 0.2 X103/UL 0.0-0.8 Absolute Neutrophils 4.3 X103/UL 1.5-7.7 Liver 08/16/2018 [facility] Albumin 4.7 g/dL 3.5-5.[address] Serum/Plasma(!) Panel(!) [place] [address] [phone] Alkaline Phosphatase(!) 70 U/L 39-117 Bilirubin Direct Mass/Vol(!) 0.1 mg/dL 0.0-0.6 Bilirubin Total Mass/Vol(!) 0.4 mg/dL 0.2-1.3 Ast - Sgot 18 U/L 5-34 Alt - SGPT 31 U/L 10-40 Protein, Total(!) 6.8 g/dL 6.2-8.1 Laboratory test 08/16/2018 [facility] Ferritin 67.6 ng/dL 24-250 finding [address] [address] Mass/Vol(!) [phone] C-Reative Protein <0.5 <5.0 Iron & Iron Binding Capacity 08/16/2018 [facility] Iron 80 g/dL N 50-212 Unsaturated Iron Binding < 301 g/dL Total Iron Binding Capacity 316 g/dL N 250-450 Transferrin 226 mg/dL N 203-362 % Iron Saturation 25 % N 15-55 Laboratory test 08/02/2018 [facility] Surgical Pathology SEE RESULT 3 finding BELOW CBC W/Auto 05/14/2018 [facility] White Blood Count <pending> Differential(!) Ser Auto CNT RBC Red Blood Count <pending> Hemoglobin Blood <pending> Hematocrit <pending> MCV (Corpuscular Volume) <pending> MCH (Corpuscular Hemoglobin) <pending> MCHC (Corpuscular Hemog Conc) <pending> RDW <pending> Platelet Count Blood Auto CNT <pending> MPV <pending> Lymph% <pending> [place]% <pending> Neutrophil % <pending> Absolute Lymphocytes <pending> Absolute Monocytes <pending> Absolute Neutrophils <pending> Laboratory test finding 05/14/2018 [facility] Troponin I <pending> TSH Thyroid Stim Hormone(!) <pending> CMP(!) 05/14/2018 [facility] Sodium(!) <pending> Potassium(!) <pending> Chloride Serum/Plasma(!) <pending> Carbon Dioxide Ser/Plasm(!) <pending> BUN - Urea Nitrogen(!) <pending> Calcium Ser/Plasma Mass/Vol(!) <pending> Creatinine Serum Mass/Vol(!) <pending> Glucose Serum(!) <pending> BUN/Creatinine Ratio(!) <pending> Albumin Serum/Plasma(!) <pending> Alkaline Phosphatase(!) <pending> Bilirubin Total Mass/Vol(!) <pending> Ast - Sgot <pending> Alt - SGPT <pending> Protein Total <pending> CMP, Magnesium, 05/14/2018 [facility] Magnesium Ser/Plasma <pending> Phosphorus Mass/Vol Phosphorus <pending> Laboratory test finding 05/11/2018 [facility] D Dimer hs <pending> CBC W/Auto 05/11/2018 [facility] White Blood Count <pending> Differential(!) Ser Auto CNT RBC Red Blood Count <pending> Hemoglobin Blood <pending> Hematocrit <pending> MCV (Corpuscular Volume) <pending> MCH (Corpuscular Hemoglobin) <pending> MCHC (Corpuscular Hemog Conc) <pending> RDW <pending> Platelet Count Blood Auto CNT <pending> MPV <pending> Lymph% <pending> [place]% <pending> Neutrophil % <pending> Absolute Lymphocytes <pending> Absolute Monocytes <pending> Absolute Neutrophils <pending> Xray 05/11/2018 [facility] Radiology Chest Ap Portable <pending> Laboratory test 01/29/2017 N2N/CCD Import Albumin 4.4 g/dL 3.2-5.2 finding Albumin/Globulin Ratio 1.5 1 1-3 Alkaline Phosphatase 82 U/L 34-104 Alt 95 U/L High 7-52 Amylase 21 U/L Low 29-103 4 Anion Gap 8 mmol/L 2-11 Ast 54 U/L High 13-39 BUN/Creatinine Ratio 13.1 1 8-20 Blood Urea Nitrogen 11 mg/dL 6-24 C Reactive Protein 11.58 mg/L High < 5.00 Calcium 9.3 mg/dL 8.6-10.3 Chloride 102 mmol/L 101-111 Co2 Carbon Dioxide 25 mmol/L 22-32 Creatinine 0.84 mg/dL 0.67-1.17 Egfr 123.4 1 >60 Egfr Non- 96.0 1 >60 Globulin 2.9 g/dL 2-4 Glucose 151 mg/dL High 70-100 Lactic Acid 1.1 mmol/L 0.5-2.0 Lipase 28 U/L 11.0-82.0 5 Potassium 3.9 mmol/L 3.5-5.0 Sodium 135 mmol/L 133-145 6 Total Bilirubin 0.50 mg/dL 0.2-1.0 Total Protein 7.3 g/dL 6.4-8.9 CBC Auto Diff 01/29/2017 N2N/[facility] Import Abs Basophils 0 10^3/uL 0-0.2 Abs Eosinophils 0.2 10^3/uL 0-0.6 Abs Lymphocytes 1.1 10^3/uL 1.0-4.8 Abs Monocytes 0.7 10^3/uL 0-0.8 Abs Neutrophils 4.4 10^3/uL 1.5-7.7 Abs Nucleated RBC 0 10^3/uL Basophil % 0.6 % 0-2 Eosinophil % 2.9 % 0-6 Granulocyte % 68.6 % 38-83 Hematocrit 40 % Low 42-52 Hemoglobin 13.9 g/dL Low 14.0-18.0 Lymphocyte % 17.0 % Low 25-47 Mean Corpuscular HGB Conc 34 g/dL 31-36 Mean Corpuscular Hemoglobin 30 pg 27-31 Mean Corpuscular Volume 87 fL 80-94 Mean Platelet Volume 8 um3 7.4-10.4 Monocyte % 10.9 % High 1-9 Nucleated Red Blood Cells % 0.1 1 Platelet Count 159 10^3/uL 150-450 Red Blood Count 4.65 10^6/uL 4.0-5.4 Red Cell Distribution Width 13 % 10.5-15 White Blood Count 6.3 10^3/uL 3.5-10.8 Urinalysis Profile 01/29/2017 N2N/[facility] Import Urine Specific 1.008 1 Low 1.010-1.030 [place] Urine pH 5.0 1 5-9 Laboratory test finding 04/24/2016 N2N/[facility] Import Albumin 4.3 g/dL 3.2- 5.2 Albumin/Globulin Ratio 1.8 1 1-3 Alkaline Phosphatase 60 U/L 34-104 Alt 33 U/L 7-52 Anion Gap 5 mmol/L 2-11 Ast 22 U/L 13-39 BUN/Creatinine Ratio 16.0 1 8-20 Blood Urea Nitrogen 15 mg/dL 6-24 Calcium 9.3 mg/dL 8.6-10.3 Chloride 102 mmol/L 101-111 Co2 Carbon Dioxide 31 mmol/L 22-32 Creatinine 0.94 mg/dL 0.67-1.17 Egfr 108.8 1 >60 Egfr Non- 84.6 1 >60 Globulin 2.4 g/dL 2-4 Glucose 128 mg/dL High 70-100 Hemoglobin A1c (Glyco HGB) 5.9 % Less than 6.0 Potassium 4.0 mmol/L 3.5-5.0 Sodium 138 mmol/L 133-145 7 TSH (Thyroid Stim Horm) 2.08 mcIU/mL 0.34-5.60 8 Total Bilirubin 0.40 mg/dL 0.2-1.0 Total Protein 6.7 g/dL 6.4-8.9 Lipid Profile (Trig/Chol/HDL) 04/24/2016 N2N/CCD Import Cholesterol 155 mg/ dL 9 HDL Cholesterol 30.1 mg/dL 10 LDL Cholesterol 71 mg/dL 11 Triglycerides 271 mg/dL 12 1 SEE RESULT BELOW Name: AMBIKA TIMMONS JR : [address]: Linh Huerta MD Acct: [id number] Unit: [id number] AGE: 53 Location: ENDO Re10/04/18 SEX: M Status: DEP REF SPEC: [id number] OCTAVIO: 10/04/18- SUBM DR: Linh Hoffman MD REQ: [id number] RECD: 10/04/18-4719 STATUS: ELISA LIAO DR: Tova Cuellar MD [...] CONTINUED ON NEXT PAGE DEPARTMENT OF PATHOLOGY, [address] [place] [address] Travis Null M.D. Director [facility] # [id number] RUN DATE: 10/05/18 [facility] LAB LIVE PAGE 2 Patient: AMBIKA TIMMONS JR [id number] (Continued) GROSS DESCRIPTION (Continued) GROSS DESCRIPTION 1. [...] 1248 END OF REPORT DEPARTMENT OF PATHOLOGY, [address] [place] [address] Travis Null M.D. Director [facility] # [id number] SEE RESULT BELOW Name: AMBIKA TIMMONS : [address]: Linh Huerta MD Acct: [id number] Unit: [id number] AGE: 53 Location: ENDO Re10/04/18 SEX: M Status: DEP REF SPEC: [id number] OCTAVIO: 10/04/18- SUBM DR: Linh Hoffman MD REQ: [id number] RECD: 10/04/18 STATUS: ELISA LIAO DR: Tova [...] CONTINUED ON NEXT PAGE DEPARTMENT OF PATHOLOGY, [address], [place], [place] [address] Travis Null M.D. Director [facility] # [id number] RUN DATE: 10/05/18 [facility] LAB LIVE PAGE 2 Patient: AMBIKA TIMMONS Aime LR [id number] (Continued) GROSS DESCRIPTION (Continued) GROSS DESCRIPTION 1. [...] 1248 END OF REPORT DEPARTMENT OF PATHOLOGY, [address] [place] [address] Travis Null M.D. Director [facility] # [id number] SEE RESULT BELOW Name: AMBIKA TIMMONS JR : [address]: Linh Huerta MD Acct: [id number] Unit: [id number] AGE: 53 Location: ENDO Re10/04/18 SEX: M Status: DEP REF SPEC: [id number] OCTAVIO: 10/04/18- SUBM DR: Linh Hoffman MD REQ: [id number] RECD: 10/04/18 STATUS: ELISA LIAO DR: Tova [...] CONTINUED ON NEXT PAGE DEPARTMENT OF PATHOLOGY, [address] [place] [address] Travis Null M.D. Director [facility] # [id number] RUN DATE: 10/05/18 [facility] LAB LIVE PAGE 2 Patient: AMBIKA TIMMONS JR [id number] (Continued) GROSS DESCRIPTION (Continued) GROSS DESCRIPTION 1. [...] 1248 END OF REPORT DEPARTMENT OF PATHOLOGY, [address] [place] [address] Travis Null M.D. Director [facility] # [id number] 2 SEE RESULT BELOW Name: AMBIKA TIMMONS : [address]: Linh Huerta MD Acct: [id number] Unit: [id number] AGE: 53 Location: ENDO Re08/23/18 SEX: M Status: DEP REF SPEC: OCTAVIO: 08/23/18-[address]: Linh Hoffman MD REQ: [id number] RECD: 08/23/18-1301 STATUS: ELISA LIAO DR: Tova Cuellar MD _ ORDERED: LEVEL 4/2 FINAL DIAGNOSIS 1. Colon, sigmoid, biopsy: -- Hyperplastic polyps. 2. Colon, distal rectum, biopsy: -- Benign colonic mucosa with surface red blood cell extravasation and no significant pathologic abnormalities. CLINICAL HISTORY Rectal bleeding POST-OPERATIVE DIAGNOSIS Colonoscopy: to terminal ileum- normal; good prep; mild red at distal - biopsy; unknown prep effect; (2) sigmoid polyps 2 - 3 jumbo; mild sigmoid diverticulosis; internal hemorrhoid GROSS DESCRIPTION 1. The specimen is received in formalin labeled, Biopsy Sigmoid Polyps (2) , and consists of two olsen-pink irregular to polypoid soft tissue fragments averaging 0.3 x 0.2 x 0.1 cm which are submitted entirely in one cassette. 2. The specimen is received in formalin labeled, Distal Rectal Biopsies, and consists of a 0.3 x 0.3 x 0.2 cm olsen speckled red irregular soft tissue fragment which is submitted entirely in one cassette. CONTINUED ON NEXT PAGE DEPARTMENT OF PATHOLOGY, [facility] [employer] [place] [address] Travis Null M.D. Director [facility] # [id number] RUN DATE: 08/24/18 [facility] LAB LIVE PAGE 2 Patient: JUNEMORALESAMBIKA Aime [id number] (Continued) GROSS DESCRIPTION (Continued) Signed by and Reported on: Shira Khanna MD 08/24/18 1128 END OF REPORT DEPARTMENT OF PATHOLOGY, [facility] [employer] [place], [place] [address] Travis Null M.D. Director [facility] # [id number] SEE RESULT BELOW Name: AMBIKA TIMMONS Aime : [address]: Linh Huerta MD Acct: [id number] Unit: [id number] AGE: 53 Location: ENDO Re08/23/18 SEX: M Status: DEP REF SPEC: OCTAVIO: 08/23/18 [facility] DR: Linh Hoffman MD REQ: [id number] RECD: 08/23/18 STATUS: ELISA LIAO DR: Tova Cuellar MD _ ORDERED: LEVEL 4/2 FINAL DIAGNOSIS 1. Colon, sigmoid, biopsy: -- Hyperplastic polyps. 2. Colon, distal rectum, biopsy: -- Benign colonic mucosa with surface red blood cell extravasation and no significant pathologic abnormalities. CLINICAL HISTORY Rectal bleeding POST-OPERATIVE DIAGNOSIS Colonoscopy: to terminal ileum- normal; good prep; mild red at distal - biopsy; unknown prep effect; (2) sigmoid polyps 2 - 3 jumbo; mild sigmoid diverticulosis; internal hemorrhoid GROSS DESCRIPTION 1. The specimen is received in formalin labeled, Biopsy Sigmoid Polyps (2) , and consists of two olsen-pink irregular to polypoid soft tissue fragments averaging 0.3 x 0.2 x 0.1 cm which are submitted entirely in one cassette. 2. The specimen is received in formalin labeled, Distal Rectal Biopsies, and consists of a 0.3 x 0.3 x 0.2 cm olsen speckled red irregular soft tissue fragment which is submitted entirely in one cassette. CONTINUED ON NEXT PAGE DEPARTMENT OF PATHOLOGY, [address] [place] [address] Travis Null M.D. Director [facility] # [id number] RUN DATE: 08/24/18 [facility] LAB LIVE PAGE 2 Patient: AMBIKA TIMMONS [id number] (Continued) GROSS DESCRIPTION (Continued) Signed by and Reported on: Shira Khanna MD 08/24/18 1128 END OF REPORT DEPARTMENT OF PATHOLOGY, [address] [place] [address] Travis Null M.D. Director [facility] # [id number] SEE RESULT BELOW Name: AMBIKA TIMMONS : [address]: Linh Huerta MD Acct: [id number] Unit: [id number] AGE: 53 Location: ENDO Re08/02/18 SEX: M Status: DEP REF SPEC: [id number] OCTAVIO: 08/02/18- SUBM DR: Linh Hoffman MD REQ: [id number] RECD: 08/02/18 STATUS: ELISA LIAO DR: Tova Cuellar MD _ ORDERED: LEVEL 4/5 FINAL DIAGNOSIS 1. Small bowel, duodenum, biopsy: -- Small bowel mucosa with normal villous architecture and no significant pathologic abnormalities. 2. Stomach, antrum, biopsy: -- Gastric antral mucosa with minimal nonspecific chronic inflammation. -- No active gastritis nor Helicobacter pylori-like organisms identified on H E microscopy. See comment. 3. Stomach, body, biopsies: -- Gastric oxyntic gland mucosa with mild patchy chronic inflammation. -- No active gastritis or Helicobacter pylori-like organisms identified. 4. Mid esophagus, biopsies: -- Squamous mucosa with severe esophagitis with eosinophilia characteristic of allergic-type eosinophilic esophagitis (up to 22/hpf). See comment. 5. Esophagus, proximal, biopsies: -- Esophagitis with mild eosinophilia. See comment. Comment: An immunohistochemical stain for Helicobacter pylori-like organisms is pending and will be reported in an addendum on part 2 The mid esophageal biopsy demonstrates superficial squamous mucosa with abundant eosinophilic inflammation. The location CONTINUED ON NEXT PAGE DEPARTMENT OF PATHOLOGY, [address] [place] [address] Travis Null M.D. Director [facility] # [id number] RUN DATE: 08/03/18 [facility] LAB LIVE PAGE 2 Patient: AMBIKA TIMMONS [id number] (Continued) SPECIMEN COMMENTS (Continued) and intensity of the eosinophilia is most characteristic of allergic/eosinophilic esophagitis. Mild eosinophilic inflammation is seen in the proximal biopsies. Severe reflux esophagitis with extension into the proximal portions of the esophagitis cannot be entirely excluded without examination of tissue from the distal esophagus/gastric esophageal junction. Correlation with clinical and endoscopic findings is recommended. CLINICAL HISTORY Epigastric pain POST-OPERATIVE DIAGNOSIS EGD: esophagus - linear furrowing (significant) in mid and proximal esophagus most notably; Z line / gastroesophageal junction at 42 cm - appears regular; distal esophagus tortuous; mildly spastic; gastric - mild antral erythema - biopsy; unknown pitted (mild ) body - biopsy; duodenum - normal GROSS DESCRIPTION 1. The specimen is received in formalin labeled, Duodenal Biopsies, and consists of a 0.7 x 0.5 by up to 0.2 cm aggregate of olsen-pink irregular soft tissue fragments which is submitted entirely in one cassette. 2. The specimen is received in formalin labeled, Gastric Antrum Biopsies, and consists of two olsen-pink irregular soft tissue fragments measuring 0.3 x 0.2 x 0.1 cm and 0.6 x 0.2 x 0.1 cm which are submitted entirely in one cassette. 3. The specimen is received in formalin labeled, Gastric Body Biopsies, and consists of two olsen-pink irregular soft tissue fragments measuring 0.3 x 0.2 x 0.1 cm and 0.6 x 0.2 x 0.1 cm which are submitted entirely in one cassette. 4. The specimen is received in formalin labeled, Mid Esophagus Biopsies, and consists of a 0.5 x 0.5 x 0.1 cm aggregate of translucent olsen-pink irregular soft tissue fragments which is submitted entirely in one cassette. 5. The specimen is received in formalin labeled, Proximal Esophagus Biopsies, and consists of a 0.7 x 0.5 x 0.1 cm aggregate of translucent olsen-pink irregular soft tissue fragments CONTINUED ON NEXT PAGE DEPARTMENT OF PATHOLOGY, [address] [place] [address] Travis Null M.D. Director [facility] # [id number] RUN DATE: 08/03/18 [facility] LAB LIVE PAGE 3 Patient: AMBIKA TIMMONS [id number] (Continued) GROSS DESCRIPTION (Continued) which is submitted entirely in one cassette. Signed by and Reported on: Travis Null MD 1232 END OF REPORT DEPARTMENT OF PATHOLOGY, [address] [place] [address] Travis Null M.D. Director [facility] # [id number] SEE RESULT BELOW Name: AMBIKA TIMMONS : [address]: Linh Huerta MD Acct: [id number] Unit: [id number] AGE: 53 Location: ENDO Re08/02/18 SEX: M Status: DEP REF SPEC: [id number] OCTAVIO: 08/02/18- SUBM DR: Linh Hoffman MD REQ: [id number] RECD: 08/02/185 STATUS: ELISA LIAO DR: Tova Cuellar MD _ ORDERED: LEVEL 4/5 FINAL DIAGNOSIS 1. Small bowel, duodenum, biopsy: -- Small bowel mucosa with normal villous architecture and no significant pathologic abnormalities. 2. Stomach, antrum, biopsy: -- Gastric antral mucosa with minimal nonspecific chronic inflammation. -- No active gastritis nor Helicobacter pylori-like organisms identified on H E microscopy. See comment. 3. Stomach, body, biopsies: -- Gastric oxyntic gland mucosa with mild patchy chronic inflammation. -- No active gastritis or Helicobacter pylori-like organisms identified. 4. Mid esophagus, biopsies: -- Squamous mucosa with severe esophagitis with eosinophilia characteristic of allergic-type eosinophilic esophagitis (up to 22/hpf). See comment. 5. Esophagus, proximal, biopsies: -- Esophagitis with mild eosinophilia. See comment. Comment: An immunohistochemical stain for Helicobacter pylori-like organisms is pending and will be reported in an addendum on part 2 The mid esophageal biopsy demonstrates superficial squamous mucosa with abundant eosinophilic inflammation. The location CONTINUED ON NEXT PAGE DEPARTMENT OF PATHOLOGY, [address] [place] [address] Travis Null M.D. Director [facility] # [id number] RUN DATE: 08/03/18 [facility] LAB LIVE PAGE 2 Patient: AMBIKA TIMMONS [id number] (Continued) SPECIMEN COMMENTS (Continued) and intensity of the eosinophilia is most characteristic of allergic/eosinophilic esophagitis. Mild eosinophilic inflammation is seen in the proximal biopsies. Severe reflux esophagitis with extension into the proximal portions of the esophagitis cannot be entirely excluded without examination of tissue from the distal esophagus/gastric esophageal junction. Correlation with clinical and endoscopic findings is recommended. CLINICAL HISTORY Epigastric pain POST-OPERATIVE DIAGNOSIS EGD: esophagus - linear furrowing (significant) in mid and proximal esophagus most notably; Z line / gastroesophageal junction at 42 cm - appears regular; distal esophagus tortuous; mildly spastic; gastric - mild antral erythema - biopsy; unknown pitted (mild ) body - biopsy; duodenum - normal GROSS DESCRIPTION 1. The specimen is received in formalin labeled, Duodenal Biopsies, and consists of a 0.7 x 0.5 by up to 0.2 cm aggregate of olsen-pink irregular soft tissue fragments which is submitted entirely in one cassette. 2. The specimen is received in formalin labeled, Gastric Antrum Biopsies, and consists of two olsen-pink irregular soft tissue fragments measuring 0.3 x 0.2 x 0.1 cm and 0.6 x 0.2 x 0.1 cm which are submitted entirely in one cassette. 3. The specimen is received in formalin labeled, Gastric Body Biopsies, and consists of two olsen-pink irregular soft tissue fragments measuring 0.3 x 0.2 x 0.1 cm and 0.6 x 0.2 x 0.1 cm which are submitted entirely in one cassette. 4. The specimen is received in formalin labeled, Mid Esophagus Biopsies, and consists of a 0.5 x 0.5 x 0.1 cm aggregate of translucent olsen-pink irregular soft tissue fragments which is submitted entirely in one cassette. 5. The specimen is received in formalin labeled, Proximal Esophagus Biopsies, and consists of a 0.7 x 0.5 x 0.1 cm aggregate of translucent olsen-pink irregular soft tissue fragments CONTINUED ON NEXT PAGE DEPARTMENT OF PATHOLOGY, [address] [place] [address] Travis Null M.D. Director [facility] # [id number] RUN DATE: 08/03/18 [facility] LAB LIVE PAGE 3 Patient: AMBIKA TIMMONS [id number] (Continued) GROSS DESCRIPTION (Continued) which is submitted entirely in one cassette. Signed by and Reported on: Travis Null MD 1232 END OF REPORT DEPARTMENT OF PATHOLOGY, [address] [place] [address] Travis Null M.D. Director [facility] # [id number] SEE RESULT BELOW Name: AMBIKA TIMMONS : [address]: Linh Huerta MD Acct: [id number] Unit: [id number] AGE: 53 Location: ENDO Re08/02/18 SEX: M Status: DEP REF SPEC: [id number] OCTAVIO: 08/02/18- SUBM DR: Linh Hoffman MD REQ: [id number] RECD: 08/02/18-105 STATUS: ELISA LIAO DR: Tova Cuellar MD _ ORDERED: LEVEL 4/5, IMMUNO-FIRST ADDENDUM An H. pylori immunohistochemical stain, with appropriately reacting controls , was performed on sections cut from specimen 2 and is negative for Helicobacter organisms. Addendum Signed (signature on file) Shira Khanna MD 07/22 1152 FINAL DIAGNOSIS 1. Small bowel, duodenum, biopsy: -- Small bowel mucosa with normal villous architecture and no significant pathologic abnormalities. 2. Stomach, antrum, biopsy: -- Gastric antral mucosa with minimal nonspecific chronic inflammation. -- No active gastritis nor Helicobacter pylori-like organisms identified on H E microscopy. See comment. 3. Stomach, body, biopsies: -- Gastric oxyntic gland mucosa with mild patchy chronic inflammation. -- No active gastritis or Helicobacter pylori-like organisms identified. 4. Mid esophagus, biopsies: -- Squamous mucosa with severe esophagitis with eosinophilia characteristic of allergic-type eosinophilic esophagitis (up to 22/hpf). See comment. 5. Esophagus, proximal, biopsies: -- Esophagitis with mild eosinophilia. See comment. CONTINUED ON NEXT PAGE DEPARTMENT OF PATHOLOGY, [address] [place] [address] Travis Null M.D. Director [facility] # [id number] RUN DATE: 08/04/18 [facility] LAB LIVE PAGE 2 Patient: AMBIKA TIMMONS [id number] (Continued) FINAL DIAGNOSIS (Continued) Comment: An immunohistochemical stain for Helicobacter pylori-like organisms is pending and will be reported in an addendum on part 2 The mid esophageal biopsy demonstrates superficial squamous mucosa with abundant eosinophilic inflammation. The location and intensity of the eosinophilia is most characteristic of allergic/eosinophilic esophagitis. Mild eosinophilic inflammation is seen in the proximal biopsies. Severe reflux esophagitis with extension into the proximal portions of the esophagitis cannot be entirely excluded without examination of tissue from the distal esophagus/gastric esophageal junction. Correlation with clinical and endoscopic findings is recommended. CLINICAL HISTORY Epigastric pain POST-OPERATIVE DIAGNOSIS EGD: esophagus - linear furrowing (significant) in mid and proximal esophagus most notably; Z line / gastroesophageal junction at 42 cm - appears regular; distal esophagus tortuous; mildly spastic; gastric - mild antral erythema - biopsy; unknown pitted (mild ) body - biopsy; duodenum - normal GROSS DESCRIPTION 1. The specimen is received in formalin labeled, Duodenal Biopsies, and consists of a 0.7 x 0.5 by up to 0.2 cm aggregate of olsen-pink irregular soft tissue fragments which is submitted entirely in one cassette. 2. The specimen is received in formalin labeled, Gastric Antrum Biopsies, and consists of two olsen-pink irregular soft tissue fragments measuring 0.3 x 0.2 x 0.1 cm and 0.6 x 0.2 x 0.1 cm which are submitted entirely in one cassette. CONTINUED ON NEXT PAGE DEPARTMENT OF PATHOLOGY, [address] [place] [address] Travis Null M.D. Director [facility] # [id number] RUN DATE: 08/04/18 [facility] LAB LIVE PAGE 3 Patient: AMBIKA TIMMONS [id number] (Continued) GROSS DESCRIPTION (Continued) 3. The specimen is received in formalin labeled, Gastric Body Biopsies, and consists of two olsen-pink irregular soft tissue fragments measuring 0.3 x 0.2 x 0.1 cm and 0.6 x 0.2 x 0.1 cm which are submitted entirely in one cassette. 4. The specimen is received in formalin labeled, Mid Esophagus Biopsies, and consists of a 0.5 x 0.5 x 0.1 cm aggregate of translucent olsen-pink irregular soft tissue fragments which is submitted entirely in one cassette. 5. The specimen is received in formalin labeled, Proximal Esophagus Biopsies, and consists of a 0.7 x 0.5 x 0.1 cm aggregate of translucent olsen-pink irregular soft tissue fragments which is submitted entirely in one cassette. Signed by and Reported on: Travis Null MD 1232 END OF REPORT DEPARTMENT OF PATHOLOGY, [address] [place] [address] Travis Null M.D. Director [facility] # [id number] SEE RESULT BELOW Name: AMBIKA TIMMONS : [address]: Linh Huerta MD Acct: [id number] Unit: [id number] AGE: 53 Location: ENDO Re08/02/18 SEX: M Status: DEP REF SPEC: [id number] OCTAVIO: 08/02/18- SUBM DR: Linh Hoffman MD REQ: [id number] RECD: 08/02/18-1055 STATUS: ELISA LIAO DR: Tova Cuellar MD _ ORDERED: LEVEL 4/5, IMMUNO-FIRST ADDENDUM An H. pylori immunohistochemical stain, with appropriately reacting controls , was performed on sections cut from specimen 2 and is negative for Helicobacter organisms. Addendum Signed (signature on file) Shira Khanna MD 07/22 1152 FINAL DIAGNOSIS 1. Small bowel, duodenum, biopsy: -- Small bowel mucosa with normal villous architecture and no significant pathologic abnormalities. 2. Stomach, antrum, biopsy: -- Gastric antral mucosa with minimal nonspecific chronic inflammation. -- No active gastritis nor Helicobacter pylori-like organisms identified on H E microscopy. See comment. 3. Stomach, body, biopsies: -- Gastric oxyntic gland mucosa with mild patchy chronic inflammation. -- No active gastritis or Helicobacter pylori-like organisms identified. 4. Mid esophagus, biopsies: -- Squamous mucosa with severe esophagitis with eosinophilia characteristic of allergic-type eosinophilic esophagitis (up to 22/hpf). See comment. 5. Esophagus, proximal, biopsies: -- Esophagitis with mild eosinophilia. See comment. CONTINUED ON NEXT PAGE DEPARTMENT OF PATHOLOGY, [address] [place] [address] Travis Null M.D. Director [facility] # [id number] RUN DATE: 08/04/18 [facility] LAB LIVE PAGE 2 Patient: AMBIKA TIMMONS [id number] (Continued) FINAL DIAGNOSIS (Continued) Comment: An immunohistochemical stain for Helicobacter pylori-like organisms is pending and will be reported in an addendum on part 2 The mid esophageal biopsy demonstrates superficial squamous mucosa with abundant eosinophilic inflammation. The location and intensity of the eosinophilia is most characteristic of allergic/eosinophilic esophagitis. Mild eosinophilic inflammation is seen in the proximal biopsies. Severe reflux esophagitis with extension into the proximal portions of the esophagitis cannot be entirely excluded without examination of tissue from the distal esophagus/gastric esophageal junction. Correlation with clinical and endoscopic findings is recommended. CLINICAL HISTORY Epigastric pain POST-OPERATIVE DIAGNOSIS EGD: esophagus - linear furrowing (significant) in mid and proximal esophagus most notably; Z line / gastroesophageal junction at 42 cm - appears regular; distal esophagus tortuous; mildly spastic; gastric - mild antral erythema - biopsy; unknown pitted (mild ) body - biopsy; duodenum - normal GROSS DESCRIPTION 1. The specimen is received in formalin labeled, Duodenal Biopsies, and consists of a 0.7 x 0.5 by up to 0.2 cm aggregate of olsen-pink irregular soft tissue fragments which is submitted entirely in one cassette. 2. The specimen is received in formalin labeled, Gastric Antrum Biopsies, and consists of two olsen-pink irregular soft tissue fragments measuring 0.3 x 0.2 x 0.1 cm and 0.6 x 0.2 x 0.1 cm which are submitted entirely in one cassette. CONTINUED ON NEXT PAGE DEPARTMENT OF PATHOLOGY, [address] [place] [address] Travis Null M.D. Director [facility] # [id number] RUN DATE: 08/04/18 [facility] LAB LIVE PAGE 3 Patient: AMBIKA TIMMONS [id number] (Continued) GROSS DESCRIPTION (Continued) 3. The specimen is received in formalin labeled, Gastric Body Biopsies, and consists of two olsen-pink irregular soft tissue fragments measuring 0.3 x 0.2 x 0.1 cm and 0.6 x 0.2 x 0.1 cm which are submitted entirely in one cassette. 4. The specimen is received in formalin labeled, Mid Esophagus Biopsies, and consists of a 0.5 x 0.5 x 0.1 cm aggregate of translucent olsen-pink irregular soft tissue fragments which is submitted entirely in one cassette. 5. The specimen is received in formalin labeled, Proximal Esophagus Biopsies, and consists of a 0.7 x 0.5 x 0.1 cm aggregate of translucent olsen-pink irregular soft tissue fragments which is submitted entirely in one cassette. Signed by and Reported on: Travis Null MD 1232 END OF REPORT DEPARTMENT OF PATHOLOGY, [address] [place] [address] Travis Null M.D. Director [facility] # [id number] 4 Acute inflammation: >10.00 5 [facility] Severe Sepsis and Septic Shock Management Bundle Measure requires all lactic acids initially measuring >2.0 mmol/L be repeated. 6 Because ethnic data is not always readily [...] 15-29 5 Kidney failure <15 (or dialysis) 7 Because ethnic data is not always readily [...] 15-29 5 Kidney failure <15 (or dialysis) 8 Therapeutic target for the treatment of diabetes Mellitus patients is <7% HBA1C, and in selective patients <6.0%.Please refer to [place] [employer] Diabetic care guidelines for further information. 9 Desirable <200 Borderline high 200-239 High >239 10 Low <40 Desirable: 40-60 High: >60 11 Desirable: <100 mg/dL Near Optimal: 100-129 mg/dL Borderline High: 130-159 mg/dL High: 160-189 mg/dL Very High: >189 mg/dL 12 Desirable <150 Borderline high 150-199 High 200-499 Very High >500 Procedures Date Code Description Status 10/04/201812667 Moderate Sedation Services; Same Phys Each Additional 15 Completed Mins 10/04/2018 03260 Moderate Sedation Services; Same Phys Intl 15 Mins; PT >= Completed 5 Years 10/04/2018 18594 EGD+Biopsy Single Or Multiple Completed 08/23/201866581 Moderate Sedation Services; Same Phys Each Additional 15 Completed Mins 08/23/2018 64082 Moderate Sedation Services; Same Phys Each Additional 15 Completed Mins 08/23/2018 66769 Moderate Sedation Services; Same Phys Intl 15 Mins; PT >= Completed 5 Years 08/23/2018 64898 Colonscopy+Biopsy Completed 08/02/201815717 Moderate Sedation Services; Same Phys Each Additional 15 Completed Mins 08/02/2018 59486 Moderate Sedation Services; Same Phys Intl 15 Mins; PT >= Completed 5 Years 08/02/2018 73160 EGD+Biopsy Single Or Multiple Completed 04/25/2009 33896 Colonscopy+Biopsy Completed 04/25/2009 34644 EGD+Biopsy Single Or Multiple Completed 02/26/2005 43617 EGD- Upper Endoscopy Completed Encounters Type Date Location Provider Dx Diagnosis Office Visit 10/17/2018 [facility] K20.0 [facility] K62.5 Hemorrhage of anus and rectum K25.9 Gastric ulcer, unsp as acute or chronic, w/o hemor or perf Z86.010 Personal history of colonic polyps Office Visit 07/10/2018 [facility]enter[facility] Rosie Acosta R10.13 Epigastric pain 3:00p [facility] Office Visit 02/07/2017 [facility]enter[facility] Rosie Acosta K62.5 Hemorrhage of 10:00a [facility] anus and rectum R93.3 Abnormal findings on dx imaging of prt digestive tract Plan of Treatment Future Appointment(s):04/24/2019 1:30 pm - Linh Huerta MD at [facility]01/23/2019 - Linh Huerta MDK20.0 Eosinophilic sjualriauurH16.5 Hemorrhage of anus and jhnprvA00.010 Personal history of colonic polyps
--- NOTE | 2019-03-29 17:25 | UC ---
Respiratory Complaint HPI - HPI Summary HPI Summary: 54 yo male presents with URI symptoms. He tells me that about 10 days ago he began with a sore throat that progressed into sinus congestion, chest congestion , wheezing, and intermittently productive cough. He saw his PCP 1 week ago and was rx'd amoxicillin BID for 1 week. Pt took this and felt better for a day, but then his symptoms returned and he does not feel any better. He is feeling feverish intermittently throughout the day, but has not taken his temperature. He does not smoke. Denies SOB, chest pain, abdominal pain, n/v. - History of Current Complaint Stated Complaint: URI Time Seen by Provider: 03/29/19 17:24 Hx Obtained From: Patient Onset/Duration: Gradual Onset Severity Initially: Mild Severity Currently: Moderate Pain Intensity: 5 Pain Scale Used: 0-10 Numeric - Allergies/Home Medications Allergies/Adverse Reactions: Allergies Allergy/AdvReac Type Severity Reaction Status Date / Time lisinopril Allergy Rash Verified 03/29/19 17:35 Home Medications: Home Medications Sodium Chloride 5% OPTH.ALISHA* [Jr 128 Opth 5% OPTH.SOLl*] 1 drop .SEE ORDER DAILY 03/29/19 [History Confirmed 03/29/19] PMH/Surg Hx/FS Hx/Imm Hx Endocrine History: Diabetes, Dyslipidemia Cardiovascular History: Hypertension Psychological History: Anxiety, Depression - Surgical History Surgical History: Yes Surgery Procedure, Year, and Place: GALLBLADDER 12/31/12; RIGHT KNEE SCOPE sinus - Family History Known Family History: Positive: Diabetes, Other - father - lung [place] (smoker, advertising layout worker) - Social History Lives: With Family Alcohol Use: None Substance Use Type: None Smoking Status (MU): Never Smoked Tobacco - Immunization History Most Recent Influenza Vaccination: 2018 Most Recent Pneumonia Vaccination: 2017 Review of Systems All Other Systems Reviewed And Are Negative: No Constitutional: Positive: Fever, Fatigue Skin: Positive: Negative Eyes: Positive: Negative ENT: Positive: Nasal Discharge, Sinus Congestion, Sinus Pain/Tenderness Respiratory: Positive: Cough Cardiovascular: Positive: Negative Gastrointestinal: Positive: Negative Neurological: Positive: Negative Psychological: Positive: Negative Physical Exam - Summary Physical Exam Summary: GENERAL: NAD. WDWN. No pain distress. SKIN: No rashes, sores, lesions, or open wounds. HEENT: Head: AT/NC Eyes: Conjunctiva clear without inflammation or discharge. Ears: Hearing grossly normal. TMs intact, no bulging, erythema, or edema. Nose: Nasal mucosa pink and moist. TTP maxillary and frontal sinus. Throat: Posterior oropharynx without exudates, erythema, or tonsillar enlargement. Uvula midline. NECK: Supple. Nontender. No lymphadenopathy. CHEST: Mild wheezing throughout. Rales left lung. No accessory muscle use. Breathing comfortably and in no distress. CV: RRR. Without m/r/g. Pulses intact. Cap refill <2seconds NEURO: Alert. PSYCH: Age appropriate behavior. Triage Information Reviewed: Yes Vital Signs Reviewed: Yes Diagnostics - Radiology CXR Radiology Interpretation Completed By: Radiologist Summary of Radiographic Findings: IMPRESSION: #. No evidence for pneumonia. No evidence for acute intrathoracic disease. Respiratory Course/Dx - Course Course Of Treatment: CXR as above. Discussed results with pt. Suspect sinusitis and bronchitis. In the clinic he was given a duoneb treatment with good results. Easier to take a deep breath and less wheezing on exam. Given his continued symptoms despite amoxicillin alone - will rx for prednisone and augmentin. Advised to try mucinex OTC in addition to rxs - Differential Dx/Diagnosis Provider Diagnosis: Sinusitis, Bronchitis Discharge ED - Sign-Out/Discharge Documenting (check all that apply): Patient Departure All imaging exams completed and their final reports reviewed: Yes - Discharge Plan Condition: Stable Disposition: HOME Prescriptions: Amoxicillin/Clavulanate TAB* [Augmentin TAB 875*] 875 mg PO BID #14 tab predniSONE TAB* [Deltasone 20 MG TAB*] 40 mg PO DAILY #10 tab Patient Education Materials: Sinusitis (ED), Acute Bronchitis (ED) Referrals: Tova Cuellar MD [Primary Care Provider] - Additional Instructions: If you develop a fever, shortness of breath, chest pain, new or worsening symptoms - please call your PCP or go to the ED immediately. Your Chest X-Ray did not show any pneumonia today. Please take the Augmentin and Prednisone as directed May also try taking mucinex over the counter as directed - Billing Disposition and Condition Condition: STABLE Disposition: Home
[2019-03-29] MEDS ORDERED: Albuterol/Ipratropium NEB.SOL* Albuterol 2.5 MG/Ipratropium 0.5 MG 3 ML INH ONE (17:32)
[2019-03-29 17:38] VITALS: BP 132/81
== END 2019-03-29 18:15 | disposition home or self-care (01) ==
LOC: UCEAST 17:14
DX: J32.9 Chronic sinusitis, unspecified (principal); J40 Bronchitis, not specified as acute or chronic; Z88.8 Allergy status to other drugs, medicaments and biological substances; E11.9 Type 2 diabetes mellitus without complications; I10 Essential (primary) hypertension
CPT/HCPCS: 71046; 99212; A9270-GY; G0463

== ENCOUNTER 2019-09-17 13:45 | Emergency (ER) | payer BC ==
--- OUTSIDE RECORDS SUMMARY | 2019-09-17 13:54 | XMS REPORT | Continuity of Care Document ---
:1965 External Reference #:[id number] Author Name Tova Cuellar M.D. Address [address] [facility], [place] [address] Care Team Providers Name Role Phone Yun Kay MD - Internal Care Team Information Rad Technologist [phone] Medicine Tova Cuellar MD - Internal Care Team Information Rad Technologist [phone] Medicine Manuel Garcia MD - Neurology Care Team Information Rad Technologist [facility] - [place] [facility] Care Team Information Rad Technologist [phone] Diagnostic Agustín Bryson MD - Urology Care Team Information Rad Technologist [phone] Lalo Garcia DPM - Foot Surgery Care Team Information Rad Technologist [phone] Linh Huerta M.D. - Single Care Team Information Rad Technologist [phone] Specialty Selina Main M.D. - Neurology Care Team Information Rad Technologist Problems Active Problems Provider Date Type 2 diabetes mellitus Tova Cuellar M.D. Onset: 06/21/2017 Hyperlipidemia Tova Cuellar M.D. Onset: 05/13/2010 Benign essential hypertension Tova Cuellar M.D. Onset: 05/13/2010 Essential tremor Beata Olsen, MENTAL HEALTH PROGRAM SPECIALIST Onset: 05/12/2018 Obstructive sleep apnea syndrome Alexandrea Vargas DNP, RN, PAROLE BOARD MEMBER- Onset: Open-angle glaucoma Tova Cuellar M.D. Onset: 07/15/2019 Social History Type Date Description Comments Sex Unknown Tobacco Use Start: Unknown Never Smoked Cigarettes ETOH Use Denies alcohol use Tobacco Use Start: Unknown Patient has never smoked Recreational Drug Use Denies Drug Use Tobacco Use Start: Unknown Patient is not exposed to second hand smoke. Smoking Status Reviewed: 09/10/19 Patient is not exposed to second hand smoke. Exercise Type/Frequency Does not exercise Allergies, Adverse Reactions, Alerts Active Allergies Reaction Severity Comments Date Lisinopril sweating Moderate hotflashes 07/18/2012 Amlodipine headache, muscle pain 09/10/2019 Inactive Allergies NKDA 04/28/2010 Medications Active Medications SIG Qnty Indications Ordering Provider Date Propranolol HCL ER 1 by mouth every 30caps Tova Cotton, 04/10/2019 day M.D. 160mg Caps ER 24HR Venlafaxine HCL ER Take One Capsule 60caps F41.9 Tova Cotton, 2018 75mg By Mouth Twice A M.D. Caps ER 24HR Day as Directed Losartan Potassium 1 by mouth every 90tabs Tova Cotton, 10/17/2018 day M.D. 100mg Tablets Rosuvastatin Calcium Take One Tablet 30tabs Tova Cotton, 06/12/2018 By Mouth Once M.D. 10mg Tablets Daily Metformin HCL ER Take Two Tablets 60tabs Tova Cotton, 06/23/2017 500mg By Mouth Every M.D. Tablets ER 24HR Day as Directed Cane For daily use 1units Tova Cotton, 05/17/2013 [facility] M.D. Aspirin 1 by mouth once Tova Cotton, 03/05/2012 81mg Tablets daily M.D. Xyzal Allergy 24HR 1 tab daily Unknown 5mg Tablets Montelukast Sodium 1 by mouth every 90tabs Tova Cotton, 10mg day M.D. Tablets Pantoprazole Sodium 1 PO bid R10.13 Foor-Pessin, Linh, M.D. 40mg Tablets DR Eye Drops 1 gtt Left eye Unknown Latanoprost 1 gtt both eyes Unknown 0.005% at night Solution Multi Vitamin 1 po qd Unknown Tablets History Medications Amlodipine Besylate 1 by mouth 30tabs I10 Tova Cotton, 08/07/2019 - every day M.D. 09/10/2019 5mg Tablets Oseltamivir 1 by mouth once 10caps Tova Polo, 07/30/2019 - Phosphate daily for 10 M.D. 08/11/2019 75mg days Capsules Cheratussin ac 5-10ml every 6 473ml J01.90 Jitendra Andrews NP 03/22/2019 - hours as needed 04/10/2019 100-10mg/5ML cough. Solution Amoxicillin/Clavulan take one tablet 20tabs J01.90 Jitendra Andrews NP 2018 - ate Potassium q12 hours for 03/29/2019 10 days 875-125mg Tablets Venlafaxine HCL ER 1 by mouth 30tabs F41.9 Jitendra Andrews NP 03/22/2019 - every day 04/10/2019 150mg Tablets ER 24HR Immunizations CPT Code Status Date Vaccine Reaction Lot # [id number] Given 04/18/2018 Influenza Virus Vaccine, [id number] Quadrivalent, Split, Preservative Free 35590 Given 06/23/2017 Pneumonia Vaccine [id number] 60757 Given 04/01/2017 Influenza Virus Vaccine, No immedidate [id number] Quadrivalent, Split, reaction..jh Preservative Free 71493 Given 04/27/2016 Influ Virus Vaccine, no reaction noted ... [id number] Quadrivalent, Split Virus, [place] [address] Given 10/30/2015 Tetanus And Diptheria (Td) [id number] For Adult Use Preservative Free 40177 Given 04/18/2015 Influenza Virus Vaccine, [id number] Quadrivalent, Split, Preservative Free 13913 Given 05/28/2013 Flu Vaccine Split Virus [id number] Preservative Free For Indiv 3Yr Older 57040 Given 02/15/2007 Tdap - Tetanus/Diptheria/Acellula r Pertussis Vital Signs Date Vital Result Comment 09/10/2019 3:39pm Height 72 inches 6'0" Weight 256.00 lb Heart Rate 61 /min BP Systolic 133 mmHg BP Diastolic 82 mmHg O2 % BldC Oximetry 95 % BMI (Body Mass Index) 34.7 kg/m2 08/07/2019 2:19pm Height 72 inches 6'0" Weight 250.00 lb Heart Rate 64 /min BP Systolic 120 mmHg BP Diastolic 72 mmHg O2 % BldC Oximetry 100 % BMI (Body Mass Index) 33.9 kg/m2 Results Test Acquired Date Facility Test Result H/L Range Note Laboratory test 08/07/2019 [facility] In House Hemoglobin A1c 6.4 5-7 finding Procedures Date Code Description Status 07/10/2019 168407940 Diabetic Retinal Eye Exam Completed 03/14/2019 50330 Hemorrhoidectomy, Internal, By Rubber Band Ligation(S) Completed 08/23/2018 [id number] Colonoscopy Completed 04/21/2017 [id number] Diabetic Retinal Eye Exam Completed 02/11/2017 [id number] Colonoscopy Completed 04/25/2009 [id number] Colonoscopy Completed Medical Devices Description No Information Available Encounters Type Date Location Provider Dx Diagnosis Office Visit 08/07/2019 [facility] Internal Tova Cuellar, Z00.01 Encounter for 3:00p Medicine Winsome Mittal M.D. general adult medical exam w abnormal findings E11.9 Type 2 diabetes mellitus without complications I10 Essential (primary) hypertension G25.0 Essential tremor H91.90 Unspecified hearing loss, unspecified ear Office Visit 05/14/2019 8:40a [facility] Internal Tova I10 Essential ( primary) Medicine Winsome Cuellar M.D. hypertension [place]ob G25.0 Essential tremor F41.9 Anxiety disorder, unspecified Office Visit 04/10/2019 4:00p [facility] Internal Tova I10 Essential ( primary) Carson Cuellar M.D. hypertension Ccmob G47.00 Insomnia, unspecified F41.9 Anxiety disorder, unspecified Office Visit 04/03/2019 11:45a Surgical Jaime Yanez K64.0 [facility] MD hemorrhoids Office Visit 03/22/2019 2:20p [facility] Internal Jitendra Andrews NP J01.90 Acute sinusitis, Medicine - Ccmob unspecified R05 Cough F41.9 Anxiety disorder, unspecified Office Visit 03/14/2019 3:30p Surgical Uri Smith K64.0 [facility] hemorrhoids [facility] K62.5 Hemorrhage of anus and rectum Assessments Date Code Description Provider 09/10/2019 I10 Essential (primary) hypertension Tova Cuellar M.D. 09/10/2019 L72.0 Epidermal cyst Tova Cuellar M.D. 08/07/2019 Z00.01 Encounter for general adult medical Tova Cuellar M.D. examination with abnormal findings 08/07/2019 E11.9 Type 2 diabetes mellitus without Tova Cuellar M.D. complications 08/07/2019 I10 Essential (primary) hypertension Tova Cuellar M.D. 08/07/2019 G25.0 Essential tremor Tova Cuellar M.D. 08/07/2019 H91.90 Unspecified hearing loss, unspecified ear Tova Cuellar M.D. 05/14/2019 I10 Essential (primary) hypertension Tova Cuellar M.D. 05/14/2019 G25.0 Essential tremor Tova Cuellar M.D. 05/14/2019 F41.9 Anxiety disorder, unspecified Tova Cuellar M.D. 04/10/2019 I10 Essential (primary) hypertension Tova Cuellar M.D. 04/10/2019 G47.00 Insomnia, unspecified Tova Cuellar M.D. 04/10/2019 F41.9 Anxiety disorder, unspecified Tova Cuellar M.D. 04/03/2019 K64.0 First degree hemorrhoids Jaime Cruz MD 03/22/2019 J01.90 Acute sinusitis, unspecified Jitendra Juliana, MENTAL HEALTH PROGRAM SPECIALIST 03/22/2019 R05 Cough Jitendra Juliana, MENTAL HEALTH PROGRAM SPECIALIST 03/22/2019 F41.9 Anxiety disorder, unspecified Jitendra Juliana, MENTAL HEALTH PROGRAM SPECIALIST 03/14/2019 K64.0 First degree hemorrhoids Uri Cornejo MD 03/14/2019 K62.5 Hemorrhage of anus and rectum Uri Cornejo MD Plan of Treatment 09/10/2019 - Tova Cuellar M.D.I10 Essential (primary) hypertensionComments: Your blood pressure is fine. Continue the same medication Weight: move more, eat less. Food: - bottled water and trail mix- eat out less oftenActivity:Walk up and down the roadFollow up:February for rlozmvwjC60.0 Epidermal cystReferral: [facility], Dermatology Functional Status Description No Information Available Mental Status Description No Information Available Referrals Refer to Reason for Referral Status Appt Date [facility] Created [address] [place] [phone]
--- OUTSIDE RECORDS SUMMARY | 2019-09-17 13:54 | XMS REPORT | Continuity of Care Document ---
:1965 External Reference #:[id number] Author Name Tova Cuellar M.D. (transmitted by agent of provider Hien Poon) Address [address] [facility], [place] [address] Care Team Providers Name Role Phone Yun Kay MD - Internal Care Team Information Building Construction Professor [phone] Medicine Tova Cuellar MD - Internal Care Team Information Building Construction Professor [phone] Medicine Manuel Garcia MD - Neurology Care Team Information Building Construction Professor [phone] [facility] - Sleep Disorder Care Team Information Building Construction Professor [phone] Diagnostic Agustín Bryson MD - Urology Care Team Information Building Construction Professor [phone] Lalo Garcia DPM - Foot Surgery Care Team Information Building Construction Professor [phone] Linh Huerta M.D. - Single Care Team Information Building Construction Professor [phone] Specialty Selina Main M.D. - Neurology Care Team Information Building Construction Professor [phone] Problems Active Problems Provider Date Type 2 diabetes mellitus Tova Cuellar M.D. Onset: 06/21/2017 Hyperlipidemia Tova Cuellar M.D. Onset: 05/13/2010 Benign essential hypertension Tova Cuellar M.D. Onset: 05/13/2010 Essential tremor Beatanancy Olsen, STORAGE BRINE WORKER Onset: 05/12/2018 Obstructive sleep apnea syndrome Alexandrea Vargas DNP, RN, GEAR GRINDER-BC Onset: Open-angle glaucoma Tova Cuellar M.D. Onset: [...] For daily use 1units Tova Cotton, 05/17/2013 [facility] [place] Aspirin 1 by mouth once Tova Cotton, 03/05/2012 81mg Tablets daily M.D. Xyzal Allergy 24HR 1 tab daily Unknown 5mg Tablets Montelukast Sodium 1 by mouth every 90tabs Tova Cotton, 10mg day M.D. Tablets Pantoprazole Sodium 1 PO bid R10.13 Foor-Pessin, LinhKianDDwayne 40mg Tablets DR Eye Drops 1 gtt Left eye Unknown Latanoprost 1 gtt both eyes Unknown 0.005% at night Solution Multi Vitamin 1 po qd Unknown Tablets History Medications Amlodipine Besylate 1 by mouth 30tabs I10 Tova Cotton, 08/07/2019 - every day M.D. 09/10/2019 5mg Tablets Oseltamivir 1 by mouth once 10caps Tova Cotton, 07/30/2019 - Phosphate daily for 10 M.D. [...] Code Status Date Vaccine Reaction Lot # [id number] Given 04/18/2018 Influenza Virus Vaccine, [id number] Quadrivalent, Split, Preservative Free 86801 Given 06/23/2017 Pneumonia Vaccine [id number] 23696 Given 04/01/2017 Influenza Virus Vaccine, No immedidate [id number] Quadrivalent, Split, reaction..jh Preservative Free 45025 Given 04/27/2016 Influ Virus Vaccine, no reaction noted ... [id number] Quadrivalent, Split Virus, [place] [address] Given 10/30/2015 Tetanus And Diptheria (Td) [id number] For Adult Use Preservative Free 36760 Given 04/18/2015 Influenza Virus Vaccine, [id number] Quadrivalent, Split, Preservative Free 43450 Given 05/28/2013 Flu Vaccine Split Virus [id number] Preservative Free For Indiv 3Yr Older 41878 Given 02/15/2007 Tdap - Tetanus/Diptheria/Acellula r Pertussis [...] Result H/L Range Note Laboratory test 08/07/2019 [facility] In House Hemoglobin A1c 6.4 5-7 finding Procedures Date Code Description Status 07/10/2019 [id number] Diabetic Retinal Eye Exam Completed 03/14/2019 85583 Hemorrhoidectomy, Internal, By Rubber Band Ligation(S) Completed 08/23/2018 [id number] Colonoscopy Completed 04/21/2017 [id number] Diabetic Retinal Eye Exam Completed 02/11/2017 [id number] Colonoscopy Completed 04/25/2009 [id number] Colonoscopy Completed Medical Devices Description No Information Available Encounters Type Date Location Provider Dx Diagnosis Office Visit 09/10/2019 [facility] Internal Kasey Tristan Essential ( primary) 3:40p Medicine Winsome Mittal M.D. hypertension L72.0 Epidermal cyst Office Visit 08/07/2019 3:00p [facility] Internal Tova Z00.01 [facility] E11.9 Type 2 diabetes mellitus without complications I10 Essential (primary) hypertension G25.0 Essential tremor H91.90 Unspecified hearing loss, unspecified ear Office Visit 05/14/2019 8:40a [facility] Internal Tova I10 Essential ( primary) Carson Cuellar M.D. hypertension Ccmob G25.0 Essential tremor F41.9 Anxiety disorder, unspecified Office Visit 04/10/2019 4:00p [facility] Internal Tova I10 Essential ( primary) Carson Cuellar M.D. hypertension Ccmob G47.00 Insomnia, unspecified F41.9 Anxiety disorder, unspecified Office Visit 04/03/2019 11:45a Surgical Jaime Yanez K64.0 [facility] MD hemorrhoids Office Visit 03/22/2019 2:20p [facility] Internal Jitendra Andrews NP J01.90 [facility] R[facility] Cough F41.9 Anxiety disorder, unspecified Office Visit 03/14/2019 3:30p Surgical Uri Smith K64.0 [facility] hemorrhoids [facility] K62.5 Hemorrhage of anus and rectum Assessments [...] Cuellar M.D. 05/14/2019 I10 Essential (primary) hypertension oTva Cuellar M.D. 05/14/2019 G25.0 Essential tremor Tova Cuellar M.D. 05/14/2019 F41.9 Anxiety disorder, unspecified Tova Cuellar M.D. 04/10/2019 I10 Essential (primary) hypertension Tova Cuellar M.D. 04/10/2019 G47.00 Insomnia, unspecified Tova Cuellar M.D. 04/10/2019 F41.9 Anxiety disorder, unspecified Tova Cuellar M.D. 04/03/2019 K64.0 First degree hemorrhoids Jaime Cruz MD 03/22/2019 J01.90 Acute sinusitis, unspecified Jitendra Juliana, STORAGE BRINE WORKER 03/22/2019 R05 Cough Jitendra Juliana, STORAGE BRINE WORKER 03/22/2019 F41.9 Anxiety disorder, unspecified Jitendra Juliana, STORAGE BRINE WORKER 03/14/2019 K64.0 First degree hemorrhoids Uri Cornejo MD 03/14/2019 K62.5 Hemorrhage of anus and rectum Uri Cornejo MD Plan of Treatment Future Appointment(s):02/12/2020 4:00 pm - Tova Cuellar M.D. at [facility] Internal Medicine - [facility]09/10/2019 - Tova Cuellar M.D.I10 Essential ( primary) hypertensionComments:Your blood pressure is fine. Continue the same medication Weight: move more, eat less. Food: - bottled water and trail mix- eat out less oftenActivity:Walk up and down the roadFoll up:February for eikwgvymL27.0 Epidermal cystReferral:[facility], Dermatology Functional Status Description No Information Available Mental Status Description No Information Available Referrals Refer to Reason for Referral Status Appt Date [facility] Created [address] [place] [phone]
--- OUTSIDE RECORDS SUMMARY | 2019-09-17 13:54 | XMS REPORT | Continuity of Care Document ---
:1965 External Reference #:[id number] Author Name Tova Cuellar M.D. (transmitted by agent of provider Shanon Fay) Address [address], [place] [address] Care Team Providers Name Role Phone Yun Kay MD - Internal Care Team Information Tool Room Machinist Medicine Tova Cuellar MD - Internal Care Team Information Tool Room Machinist [phone] Medicine Manuel Garcia MD - Neurology Care Team Information Tool Room Machinist [facility] - Sleep Disorder Care Team Information Tool Room Machinist Diagnostic Agustín Bryson MD - Urology Care Team Information Tool Room Machinist [phone] Lalo Garcia DPM - Foot Surgery Care Team Information Tool Room Machinist Linh Huerta M.D. - Single Care Team Information Tool Room Machinist Specialty Selina Main M.D. - Neurology Care Team Information Tool Room Machinist Problems Active Problems Provider Date Type 2 diabetes mellitus Tova Cuellar M.D. Onset: 06/21/2017 Hyperlipidemia Tova Cuellar M.D. Onset: 05/13/2010 Benign essential hypertension Tova Cuellar M.D. Onset: 05/13/2010 Essential tremor Beata Olsen, CAR BODY DESIGNER Onset: 05/12/2018 Obstructive sleep apnea syndrome Alexandrea Vargas DNP, RN, REAL ESTATE SERVICES COORDINATOR- Onset: Open-angle glaucoma Tova Cuellar M.D. Onset: 07/15/2019 Social History Type Date Description Comments Sex Unknown Tobacco Use Start: Unknown Never Smoked Cigarettes ETOH Use Denies alcohol use Tobacco Use Start: Unknown Patient has never smoked Recreational Drug Use Denies Drug Use Tobacco Use Start: Unknown Patient is not exposed to second hand smoke. Smoking Status Reviewed: 08/07/19 Patient is not exposed to second hand smoke. Exercise Type/Frequency Does not exercise Allergies, Adverse Reactions, Alerts Active Allergies Reaction Severity Comments Date Lisinopril sweating Moderate hotflashes 07/18/2012 Inactive Allergies NKDA 04/28/2010 Medications Active Medications SIG Qnty Indications Ordering Provider Date Amlodipine Besylate 1 by mouth every 30tabs I10 Tova Cleveland, 2019 5mg day M.D. Tablets Oseltamivir Phosphate 1 by mouth once 10caps Tova Cleveland, 07/30/2019 daily for 10 days M.D. 75mg Capsules Propranolol HCL ER 1 by mouth every 30caps Tova Cotton, 04/10/2019 day M.D. 160mg Caps ER 24HR Venlafaxine HCL ER 1 by mouth bid 60caps F41.9 Tova Cotton, 2018 75mg M.D. Caps ER 24HR Losartan Potassium 1 by mouth every 90tabs Tova Cotton, 10/17/2018 day M.D. 100mg Tablets Rosuvastatin Calcium Take One Tablet 30tabs Tova Cleveland, 06/12/2018 By Mouth Once M.D. 10mg Tablets Daily Metformin HCL ER Take Two Tablets 60tabs Tova Cleveland, 06/23/2017 500mg By Mouth Every M.D. Tablets ER 24HR Day as Directed Cane For daily use 1units Tova Cotton, 05/17/2013 [facility] M.D. Aspirin 1 by mouth once Tova Cleveland, 03/05/2012 81mg Tablets daily M.D. Xyzal Allergy [...] 1 po qd Unknown Tablets History Medications Cheratussin ac 5-10ml every 6 473ml J01.90 Jitendra Andrews NP 03/22/2019 - hours as needed 04/10/2019 100-10mg/5ML Solution cough. Amoxicillin/Clavulana take one tablet 20tabs J01.90 Jitendra Andrews NP 2018 - te Potassium q12 hours for 03/29/2019 875-125mg 10 days Tablets Venlafaxine HCL ER 1 by mouth 30tabs F41.9 Jitendra Andrews NP 03/22/2019 - every day 04/10/2019 150mg Tablets ER 24HR Venlafaxine HCL ER only takes 75mg 30caps F41.9 Tova Polo, 2018 - 1 by mouth M.D. 03/22/2019 150mg Caps ER 24HR every day Immunizations CPT Code Status Date Vaccine Reaction Lot # [id number] Given 04/18/2018 Influenza Virus Vaccine, [id number] Quadrivalent, Split, Preservative Free 86875 Given 06/23/2017 Pneumonia Vaccine [id number] Given 04/01/2017 Influenza Virus Vaccine, No immedidate [id number] Quadrivalent, Split, reaction..jh Preservative Free 19529 Given 04/27/2016 Influ Virus Vaccine, no reaction noted ... [id number] Quadrivalent, Split Virus, [place] [address] Given 10/30/2015 Tetanus And Diptheria (Td) [id number] For Adult Use Preservative Free 95896 Given 04/18/2015 Influenza Virus Vaccine, [id number] Quadrivalent, Split, Preservative Free 69862 Given 05/28/2013 Flu Vaccine Split Virus [id number] Preservative Free For Indiv 3Yr Older 49315 Given 02/15/2007 Tdap - Tetanus/Diptheria/Acellula r Pertussis Vital Signs Date Vital Result Comment 08/07/2019 2:19pm Height 72 inches 6'0" Weight 250.00 lb Heart Rate 64 /min BP Systolic 120 mmHg BP Diastolic 72 mmHg O2 % BldC Oximetry 100 % BMI (Body Mass Index) 33.9 kg/m2 05/14/2019 8:35am Height 72 inches 6'0" Weight 254.00 lb Heart Rate 74 /min BP Systolic 123 mmHg BP Diastolic 76 mmHg O2 % BldC Oximetry 96 % BMI (Body Mass Index) 34.4 kg/m2 Results Test Acquired Date Facility Test Result H/L Range Note Laboratory test 08/07/2019 [facility] In House Hemoglobin A1c 6.4 5-7 finding Lipid Profile 02/15/2019 [facility] Triglycerides 319 mg/dL 1 (Trig/Chol/HDL) [address] [place] [address] [phone] Cholesterol 151 mg/dL 2 HDL Cholesterol 37.6 mg/dL 3 LDL Cholesterol 50 mg/dL 4 Comp Metabolic 02/15/2019 [facility] Sodium 140 mmol/L Normal 135-145 [place] [address] [phone] Potassium 4.1 mmol/L Normal 3.5-5.0 Chloride 105 [...] Egfr 116.8 >60 5 Laboratory test 02/15/2019 [facility] Hemoglobin A1c 5.9 % High 4.0-5.6 6 finding 101 (Glyco HGB) [place] [address] [phone] Urine 02/15/2019 [facility] Ur Microalbumin < 15.0 Microalbumin 101 (mg/L) mg/[place] [address] [phone] Urine Creatinine 40.12 mg/dL Urine Microalbumin/Creatinine TNP <31 7 1 Desirable: <150 Borderline High: 150-199 High: [...] in selective patients <6.0%. Please refer to [place] [employer] diabetic care guidelines for further information. 7 Unable to calculate due to low microalbumin Procedures Date Code Description Status 07/10/2019 902079782 Diabetic Retinal Eye Exam Completed 03/14/2019 07767 Hemorrhoidectomy, Internal, By Rubber Band Ligation(S) Completed 08/23/2018 [id number] Colonoscopy Completed 04/21/2017 833179361 Diabetic Retinal Eye Exam Completed 02/11/2017 [id number] Colonoscopy Completed 04/25/2009 [id number] Colonoscopy Completed Medical Devices Description No Information Available Encounters Type Date Location Provider Dx Diagnosis Office Visit 05/14/2019 [facility] Tova Cuellar I10 Essential ( primary) 8:40a Medicine - Kyrie Jacobsen hypertension G25.0 Essential tremor F41.9 Anxiety disorder, unspecified Office Visit 04/10/2019 4:00p [facility] Bernardo I10 Essential ( primary) Medicine Winsome Cuellar M.D. hypertension Socorroob G47.00 Insomnia, unspecified F41.9 Anxiety disorder, unspecified Office Visit 04/03/2019 11:45a Surgical Jaime Yanez K64.0 [facility] MD hemorrhoids Office Visit 03/22/2019 2:20p [facility] Internal Jitendra Andrews, CAR BODY DESIGNER J01.90 Acute sinusitis, Medicine - Ccmob unspecified R05 Cough F41.9 Anxiety disorder, unspecified Office Visit 03/14/2019 3:30p Surgical Uri Smith K64.0 [facility] [place] hemorrhoids [facility] K62.5 Hemorrhage of anus and rectum Office Visit 02/23/2019 2:00p [facility] Internal Tova E11.9 Type 2 diabetes Medicine - Delmar Cuellar mellitus without Ccmob complications I10 Essential (primary) hypertension G47.00 Insomnia, unspecified F41.9 Anxiety disorder, unspecified Assessments Date Code Description Provider 08/07/2019 Z00.00 Encounter for general adult medical Tova Cuellar M.D. examination without abnormal findings 08/07/2019 E11.9 Type 2 diabetes [...] 03/22/2019 J01.90 Acute sinusitis, unspecified Jitendra Juliana, CAR BODY DESIGNER 03/22/2019 R05 Cough Jitendra Andrews, JACQUELYN 03/22/2019 F41.9 Anxiety disorder, unspecified Jitendra Andrews, CAR BODY DESIGNER 03/14/2019 K64.0 First degree hemorrhoids Uri Cornejo MD 03/14/2019 K62.5 Hemorrhage of anus and rectum Uri Cornejo MD 02/23/2019 E11.9 Type 2 diabetes mellitus without Tova Cuellar M.D. complications 02/23/2019 I10 Essential (primary) hypertension Tova Cuellar M.D. 02/23/2019 G47.00 Insomnia, unspecified Tova Cuellar M.D. 02/23/2019 F41.9 Anxiety disorder, unspecified Tova Cuellar M.D. Plan of Treatment Future Appointment(s):09/06/2019 2:40 pm - Tova Cuellar M.D. at [facility] Internal Medicine - [facility]09/11/2019 2:30 pm - Alexandrea Vargas DNP, RN, REAL ESTATE SERVICES COORDINATOR-BC at [facility]08/07/2019 - Tova Cuellar M.D.Z00.00 Encounter for general adult medical examination without abnormal findingsComments:VACCINES:Flu shot every year in the fall.Tetanus: last one done in 2015. Booster every 10 years, earlier if major injuryPneumonia vaccine: done in 2017. Booster at age 65Hepatitis B vaccination: recommended for people with diabetes, call insurance about coverageShingles vaccine: There is a new shingles vaccine - Shingrix. Recommended at age 50. 90% effective which is much better than the older Zostavax vaccine. This is available at pharmacies. Series of 2 shots, given 2-6 months apart. Most people get a flu-like reaction. Cost is about $400 - call your insurance about coverage. SCREENING:Colonoscopy: last one done in 2016, next due in rostate cancer screening: will see Dr. Gaston: checked last January, due next JanuaryEye exam: done in July. ADVANCE DIRECTIVE:It would be good for us to have a copy of your health care proxy and advanced directive on file here.E11.9 Type 2 diabetes mellitus without complicationsComments:Blood test due in FebruaryUse the treadmill - 30 min a day [id number] Essential (primary) hypertensionNew Medication:Amlodipine Besylate 5 mg - 1 by mouth every dayComments:The 24 hour monitor shows your blood pressure is too high.Stay on the losartanFollow up:1 month for BPG25.0 Essential ockwrcN28.90 Unspecified hearing loss, unspecified ear Functional Status Description No Information Available Mental Status Description No Information Available Referrals Description No Information Available
[2019-09-17] MEDS ORDERED: NS 0.9% 1000 ML** 1,000 ML IV ONE (14:00)
[2019-09-17] MEDS ORDERED: Nitroglycerin TAB 0.4 MG* 0.4 MG TAB SL ONE (14:01)
--- NOTE | 2019-09-17 14:02 | ED ---
HPI Chest Pain - HPI Summary HPI Summary: Patient with history of HTN/DM/HLD/CM, brought by EMS from home for evaluation of new onset non-exertional substernal CP/pressure with radiation up to his neck and back, associated with nausea and SOB since 1130 today. States symptoms were worse at home, has subsided upon arrival however still experiencing mild symptoms. Took baby aspirin this morning at home, given additional aspirin by EMS. Denies history of CAD/VTE. No fever/chills/cough/lower extremity pain/ swelling. Also recent travel to the [facility]. Medications reviewed. Allergies noted. - History of Current Complaint Time Seen by Provider: 09/17/19 13:47 Hx Obtained From: Patient Onset/Duration: Started Hours Ago, Still Present Time of Onset: 11:30 Timing: Constant Initial Severity: Moderate Current Severity: Moderate Pain Intensity: 7 Pain Scale Used: 0-10 Numeric Chest Pain Radiates: Yes Chest Pain Radiates To:: Neck Aggravating Factor(s): Nothing Alleviating Factor(s): Other: - ASA Associated Signs and Symptoms: Positive: Chest Pain, Shortness of Breath, Cough - Additional Pertinent History Primary Care Physician: [id number] - Allergy/Home Medications Allergies/Adverse Reactions: Allergies Allergy/AdvReac Type Severity Reaction Status Date / Time lisinopril Allergy Rash Verified 03/29/19 17:35 Home Medications: Home Medications Aspirin EC TAB* [Ecotrin EC Low Dose 81 MG*] 81 mg PO DAILY 05/11/18 [History Confirmed 03/29/19] Latanoprost 0.005%* [Xalatan 0.005%*] 1 drop OPHTHALMIC DAILY 05/11/18 [History Confirmed 03/29/19] Losartan TAB* [Cozaar TAB*] 25 mg PO BID 05/11/18 [History Confirmed 03/29/19] Multivitamins/Minerals TAB* [Theragran/minerals TAB*] 1 tab PO DAILY 05/11/18 [ History Confirmed 03/29/19] Rosuvastatin (NF) [Crestor (NF)] 10 mg PO DAILY 05/11/18 [History Confirmed ] metFORMIN* [Glucophage 500 MG TAB *] 1,000 mg PO DAILY 05/11/18 [History Confirmed 03/29/19] Venlafaxine EXT RELEASE CAP* [Effexor Xr CAP*] 37.5 mg PO DAILY 07/26/18 [ History Confirmed 03/29/19] Propranolol HCl [Propranolol HCl ER] 120 mg PO BEDTIME 08/02/18 [History Confirmed 03/29/19] Soft Lens Rinse,Store Solution [Saline Sensitive Eyes] 2 drop LEFT EYE DAILY [History Confirmed 03/29/19] LevoCETirizine TAB (NF) [Xyzal TAB (NF)] 5 mg PO DAILY 09/27/18 [History Confirmed 03/29/19] Montelukast Sodium TAB* [Singulair TAB*] 10 mg PO DAILY 09/27/18 [History Confirmed 03/29/19] Amoxicillin/Clavulanate TAB* [Augmentin TAB 875*] 875 mg PO BID #14 tab [Rx] Sodium Chloride 5% OPTH.ALISHA* [Jr 128 Opth 5% OPTH.SOLl*] 1 drop .SEE ORDER DAILY 03/29/19 [History Confirmed 03/29/19] predniSONE 20 mg TAB [Deltasone 20 MG TAB*] 40 mg PO DAILY #10 tab 03/29/19 [Rx] PMH/Surg Hx/FS Hx/Imm Hx Endocrine/Hematology History: Reports: Hx Diabetes - diet controlled Cardiovascular History: Reports: Hx Angina, Hx Hypercholesterolemia, Hx Hypertension Denies: Hx Pacemaker/ICD Respiratory History: Reports: Hx Sleep Apnea - MILD Denies: Hx Asthma GI History: Reports: Hx Gall Bladder Disease - cholecystectomy, Hx Gastroesophageal Reflux Disease - CONTROLLED WITH MEDICATION, Hx Hiatal Hernia Denies: Hx Cirrhosis, Hx Crohn's Disease, Hx Diverticulosis, Hx Gastrointestinal Bleed, Hx Irritable Bowel, Hx Obstructive Bowel, Hx Ulcer History: Reports: Hx Benign Prostatic Hyperplasia - rx'd flomax - doesn't use Denies: Hx Dialysis, Hx Kidney Infection, Hx Kidney Stones, Hx Renal Disease Sensory History: Reports: Hx Contacts or Glasses - WEARS CONTACTS-INSTRUCTED TO REMOVE PRIOR TO SURGERY Denies: Hx Hearing Aid Opthamlomology History: Reports: Hx Contacts or Glasses - WEARS CONTACTS- INSTRUCTED TO REMOVE PRIOR TO SURGERY Psychiatric History: Denies: Hx Panic Disorder - Surgical History Surgery Procedure, Year, and Place: GALLBLADDER 12/31/12; RIGHT KNEE SCOPE sinus Hx Anesthesia Reactions: No Infectious Disease History: Reports: Traveled Outside the [place] in Last 30 Days - [place] Denies: History Other Infectious Disease - Family History Known Family History: Positive: Diabetes, Other - father - lung [place] (smoker, antisqueak worker) - Social History Alcohol Use: None Hx Substance Use: No Substance Use Type: Reports: None Hx Tobacco Use: No Smoking Status (MU): Never Smoked Tobacco Review of Systems Negative: Fever, Chills Positive: Chest Pain Negative: Cough Negative: Other - lower extremity pain/swelling All Other Systems Reviewed And Are Negative: Yes Physical Exam - Summary Physical Exam Summary: Constitutional: Well-developed, Well-nourished, Alert. (-) Distressed Skin: Warm, Dry HENT: Normocephalic; Atraumatic Eyes: Conjunctiva normal Neck: Musculoskeletal ROM normal neck. (-) JVD, (-) Stridor, (-) Tracheal deviation Cardio: Rhythm regular, rate normal, Heart sounds normal; Intact distal pulses; Radial pulses are 2+ and symmetric. (-) Murmur Pulmonary/Chest wall: Effort normal. (-) Respiratory distress, (-) Wheezes, (-) Rales Abd: Soft, (-) tenderness, (-) Distension, (-) Guarding, (-) Rebound Musculoskeletal: (-) Edema Lymph: (-) Cervical adenopathy Neuro: Alert, Oriented x3 Psych: Mood and affect Normal Triage Information Reviewed: Yes Vital Signs Reviewed: Yes Procedures - Sedation Patient Received Moderate/Deep Sedation with Procedure: No Diagnostics - Laboratory Result Diagrams: 09/17/19 14:13 09/17/19 14:13 Lab Statement: Any lab studies that have been ordered have been reviewed, and results considered in the medical decision making process. - Radiology CXR Radiology Interpretation Completed By: Radiologist Summary of Radiographic Findings: Impression: No active cardiopulmonary disease. Dr. Coombs has reviewed this report. - EKG 1433 Cardiac Rate: NL - 67 BPM EKG Rhythm: Sinus Rhythm Summary of EKG Findings: An EKG at 1433 reveals normal sinus rhythm at 67 BPM. No ischemic changes. Dr. Coombs has reviewed and interpreted this EKG. Re-Evaluation - Re-Evaluation First Eval Re-Evaluation Time: 15:10 Comment: Patient states upper abd pain, GI cocktail ordered. Chest Pain Course/Dx - Course Course Of Treatment: Patient is a 54 y/o M who has history of arriving via ambulance with new onset non-exertional substernal CP/pressure that radiates into neck and back onset 1130 today. Associated with nausea, SOB, improved since arrival. Baby aspirin at home with additional in transport. No CAD/VTE. No fever/chills/cough/lower extremity pain/swelling. Recent travel to [facility]. Hx includes HLD, HTN, DM, CM. Physical exam without any abnormalities. Patient placed on telemetry monitoring. IV access obtained. Patient received fluids, NTG, Tylenol. Blood work reveals hemoglobin 13.7, hematocrit 39, glucose 155. First troponin negative. An EKG at 1433 reveals normal sinus rhythm at 67 BPM, no ischemic changes. CXR is negative. Patient reports upper abdominal/epigastric pain. GI cocktail administered. Repeat troponin is negative. Symptoms seem to be consistent with GI etiology rather than cardiac at this time, awaiting abdominal imaging. The patient is a sign- out from Dr. Antoine Coombs DO, to Dr. Gael Sheridan MD, at change of shift at 1900 on 09/17/19, pending Abd/Pel CT and disposition. - Diagnoses Provider Diagnoses: Abdominal pain Discharge ED - Sign-Out/Discharge Documenting (check all that apply): Sign-Out Patient Signing out patient TO: Gael Sheridan - Patient is a sign-out from Dr. Gael Sheridan MD, at change of shift at 1900 on 09/17/19, pending Abd/Pel CT and disposition. - Discharge Plan Condition: Good Disposition: HOME Patient Education Materials: Acute Abdominal Pain (ED) Referrals: Tova Cuellar MD [Primary Care Provider] - Additional Instructions: We did not find any significant abnormality on the blood work or imaging studies that we did today to explain your pain, so we won't have a definite diagnosis yet but nor do we have any evidence of anything immediately dangerous to you. For now it is safe to discharge you to home but we would ask that you contact your regular practitioner for further care. We are always here to recheck you if your symptoms substantially worsen. - Billing Disposition and Condition Condition: GOOD Disposition: Home - Attestation Statements Document Initiated by Scribe: Yes Documenting Scribe: Liseth Stovall Provider For Whom Scribe is Documenting (Include Credential): Antoine Coombs DO Scribe Attestation: I, Liseth Stovall, scribed for Antoine Coombs DO on 09/18/19 at 0821. Scribe Documentation Reviewed: Yes Provider Attestation: The documentation as recorded by the [email or web address] accurately reflects the service I personally performed and the decisions made by me, Antoine Coombs DO Status of Scribe Document: Viewed
[2019-09-17 14:33] LABS: ABS Eosinophils 0.2 10^3/ul (0-0.6); ABS Lymphocytes 1.2 10^3/ul (1.0-4.8); ABS Monocytes 0.5 10^3/ul (0-0.8); ABS Neutrophils 5.7 10^3/ul (1.5-7.7); Eosinophil % 2.9 %; Hematocrit 39 % (42-52); Hemoglobin 13.7 g/dL (14.0-18.0); Lymphocyte % 15.7 %; Mean Corpuscular HGB Conc 35 g/dL (31-36); Mean Corpuscular Hemoglobin 30 pg (27-31); Mean Corpuscular Volume 86 fL (80-94); Platelet Count 207 10^3/uL (150-450); Red Blood Count 4.52 10^6 /uL (4.18-5.48); Red Cell Distribution Width 14 % (10-15); White Blood Count 7.7 10^3/uL (3.5-10.8)
[2019-09-17 14:44] LABS: Albumin 4.5 g/dL (3.2-5.2); Albumin/Globulin Ratio 1.6 (1-3); BUN/Creatinine Ratio 20.2 (8-20); Calcium 9.8 mg/dL (8.6-10.3); EGFR African American 107.8 (>60); EGFR Non-African American 89.1 (>60); Globulin 2.9 g/dL (2-4); Total Bilirubin 0.4 mg/dL (0.2-1.0); Total Protein 7.4 g/dL (6.4-8.9)
[2019-09-17] MEDS ORDERED: Acetaminophen TAB* 325 MG PO ONE (14:57)
[2019-09-17] MEDS ORDERED: Al Hydrox/Mg Hydrox/Simet LIQ* 30 ML UDC PO ONE (15:13)
[2019-09-17] MEDS ORDERED: Lidocaine 2% VISCOUS* 15 ML UDC PO ONE (15:13)
[2019-09-17] MEDS ORDERED: Iodixanol* (CONTRAST) 320 MG/ML 100 ML SDV IV ONE (18:11)
[2019-09-17] MEDS ORDERED: Pantoprazole IV* 40 MG IV ONE (18:50)
--- NOTE | 2019-09-17 19:20 | ED ---
Progress - Progress Note Progress Note: The patient is a sign-out from Dr. Antoine Coombs DO, to Dr. Gael Sheridan MD, at change of shift at 1900 on 09/17/19, pending CT A/P and disposition. - Results/Orders Results/Orders: CT A/P: No CT findings to correlate with patient's symptomatology. ED physician has reviewed this report. Re-Evaluation - Re-Evaluation First Eval Re-Evaluation Time: 15:10 Comment: Patient states upper abd pain, GI cocktail ordered. Course/Dx - Course Course Of Treatment: The patient is a sign-out from Dr. Antoine Coombs DO, to Dr. Gael Sheriadn MD, at change of shift at 1900 on 09/17/19, pending CT A/P and disposition. CT A/P:No CT findings to correlate with patient's symptomatology. Her repeat troponin is a .01. She will be discharged home with a Dx of abdominal pain. - Diagnoses Provider Diagnoses: Abdominal pain Discharge ED - Sign-Out/Discharge Documenting (check all that apply): Patient Departure, Receiving Sign-Out Receiving patient FROM: Finn Coombs - Discharge Plan Condition: Good Disposition: HOME Patient Education Materials: Acute Abdominal Pain (ED) Referrals: Tova Cuellar MD [Primary Care Provider] - Additional Instructions: We did not find any significant abnormality on the blood work or imaging studies that we did today to explain your pain, so we won't have a definite diagnosis yet but nor do we have any evidence of anything immediately dangerous to you. For now it is safe to discharge you to home but we would ask that you contact your regular practitioner for further care. We are always here to recheck you if your symptoms substantially worsen. - Billing Disposition and Condition Condition: GOOD Disposition: Home - Attestation Statements Document Initiated by Scribe: Yes Documenting Scribe: Steve Stiles Provider For Whom Josselyn is Documenting (Include Credential): Gael Sheridan MD Scribe Attestation: Steve An, scribed for Gael Sheridan MD on 09/18/19 at 0618. Scribe Documentation Reviewed: Yes Provider Attestation: The documentation as recorded by the Steve perea accurately reflects the service I personally performed and the decisions made by me, Gael Sheridan MD Status of Scribe Document: Viewed
[2019-09-17 21:47] VITALS: BP 142/88
== END 2019-09-17 21:46 | disposition home or self-care (01) ==
LOC: ED 13:45
DX: R10.9 Unspecified abdominal pain (principal); R07.9 Chest pain, unspecified; R06.02 Shortness of breath; E11.9 Type 2 diabetes mellitus without complications; E78.00 Pure hypercholesterolemia, unspecified; N40.0 Benign prostatic hyperplasia without lower urinary tract symptoms; I10 Essential (primary) hypertension; I20.9 Angina pectoris, unspecified; E78.5 Hyperlipidemia, unspecified; G47.30 Sleep apnea, unspecified; K21.9 Gastro-esophageal reflux disease without esophagitis; Z79.82 Long term (current) use of aspirin; Z79.899 Other long term (current) drug therapy; Z79.84 Long term (current) use of oral hypoglycemic drugs
CPT/HCPCS: 36415; 71045; 74177; 80053; 83690; 84484; 85025; 93005; 96361; 96374; 99284; A9270-GY; Q9967

== ENCOUNTER 2023-01-02 11:23 | Observation (INO) ==
[2023-01-02] MEDS ORDERED: Iodixanol (CONTRAST) 320 MG/ML 100 ML SDV IV ONE (11:43)
[2023-01-02 11:44] LABS: ABS Eosinophils 0.1 10^3/uL (0.0-0.5); ABS Lymphocytes 1.2 10^3/uL (1.0-4.8); ABS Monocytes 0.5 10^3/uL (0.0-1.1); ABS Neutrophils 3.1 10^3/uL (1.5-7.6); ABS Nucleated RBC 0.01 10^3/ul; Eosinophil % 2.8 %; Hematocrit 43.5 % (38-53); Hemoglobin 14.9 g/dL (13.2-16.3); Lymphocyte % 24.4 %; Mean Corpuscular Hemoglobin 29.5 pg (27-33); Mean Corpuscular Hgb Conc 34.2 g/dL (31-36); Mean Corpuscular Volume 86.4 fL (80-97); Mean Platelet Volume 8.3 fL (7.5-11.2); Nucleated Red Blood Cells % 0.2 /100 WBC (0.0-0.4); Platelet Count 184 10^3/uL (150-450); Red Blood Count 5.03 10^6/uL (4.06-5.63); Red Cell Distribution Width 13.4 % (12-17)
[2023-01-02 11:55] LABS: Activated Partial Thrombo Time 35.8 seconds (26.0-38.0); INR 1.1 (0.88-1.18)
[2023-01-02 12:02] LABS: ALT 27 U/L (7-52); AST 18 U/L (13-39); Albumin 4.6 g/dL (3.2-5.2); Albumin/Globulin Ratio 1.7 (1-3); Alkaline Phosphatase 54 U/L (35-149); Anion Gap 6 mmol/L (2-16); Blood Urea Nitrogen 16 mg/dL (6-24); CO2 Carbon Dioxide 27 mmol/L (22-32); Calcium 9.5 mg/dL (8.6-10.3); Chloride 105 mmol/L (101-111); Cholesterol 138 mg/dL; Creatinine, Serum 0.97 mg/dL (0.67-1.17); Globulin 2.7 g/dL (2-4); Glucose 150 mg/dL (70-100); HDL Cholesterol 33.2 mg/dL; LDL Cholesterol 61 mg/dL; Potassium 3.8 mmol/L (3.5-5.0); Sodium 138 mmol/L (135-145); Total Protein 7.3 g/dL (6.4-8.9); Triglycerides 221 mg/dL; eGFR CKD-EPI 91.1 (>60)
[2023-01-02] MEDS ORDERED: Morphine 4 MG/ML VIAL (1 ml) IV ONE (12:17)
[2023-01-02 12:36] LABS: Urine Appearance Clear; Urine Bilirubin Negative (Negative); Urine Blood Negative (Negative); Urine Color Straw; Urine Glucose 3+(>=500 mg/dL) (Negative); Urine Ketones Negative (Negative); Urine Nitrite Negative (Negative); Urine Protein Negative (Negative); Urine Specific Gravity 1.015 (1.002-1.030); Urine Urobilinogen Negative (Negative)
[2023-01-02 14:40] LABS: High Sensitivity Troponin 1 Hr 3 pg/mL (<20)
[2023-01-02] MEDS ORDERED: Prochlorperazine 5 mg/ml 2 ml VIAL (10 mg) IV ONE ×2 (15:10→22:43)
[2023-01-02] MEDS ORDERED: Latanoprost 0.005% 2.5 ml BTL BOTH EYES SCH (21:00)
[2023-01-02 21:13] LABS: C Reactive Protein < 1.00 mg/L (<8.01)
[2023-01-02 22:03] LABS: Erythrocyte Sed Rate 1 mm/Hr (0-19)
[2023-01-03 06:49] LABS: ABS Eosinophils 0.1 10^3/uL (0.0-0.5); ABS Lymphocytes 1.7 10^3/uL (1.0-4.8); ABS Monocytes 0.5 10^3/uL (0.0-1.1); ABS Neutrophils 2.3 10^3/uL (1.5-7.6); Eosinophil % 3.2 %; Hematocrit 39.2 % (38-53); Hemoglobin 13.6 g/dL (13.2-16.3); Lymphocyte % 36.9 %; Mean Corpuscular Hemoglobin 30.1 pg (27-33); Mean Corpuscular Hgb Conc 34.7 g/dL (31-36); Mean Corpuscular Volume 86.7 fL (80-97); Mean Platelet Volume 8.4 fL (7.5-11.2); Platelet Count 153 10^3/uL (150-450); Red Blood Count 4.52 10^6/uL (4.06-5.63); Red Cell Distribution Width 13.6 % (12-17); White Blood Count 4.7 10^3/uL (3.6-10.2)
[2023-01-03 07:04] LABS: Creatinine, Serum 0.95 mg/dL (0.67-1.17); Potassium 4.1 mmol/L (3.5-5.0); eGFR CKD-EPI 93.4 (>60)
[2023-01-03 18:41] VITALS: BP 153/91
[2023-01-08 15:49] LABS: Anaplasma phagocytophilum Negative (Negative); B. miyamotoi PCR, B Negative (Negative); Babesia divergens/MO-1 Negative (Negative); Babesia ducani Negative (Negative); Ehrlichia chaffeensis Negative (Negative); Ehrlichia ewingii/canis Negative (Negative); Ehrlichia muris eauclairensis Negative (Negative)
== END 2023-01-03 20:26 | disposition home or self-care (01) ==
LOC: ED 11:23 → MEDTELE 19:21 → TELEMED 19:21 → EDHOLD 19:52 → SUATTDRO 19:52 → MEDTELE 20:18 → UNDODISIN 01-03 20:26
PROVIDERS: ADMIT Hospitalist; ATTEND Hospitalist